=== PATIENT | female | born 1935 | race Caucasian/White ===

== ENCOUNTER → 2018-07-02 10:14 | Outpatient (REF) | payer MEDICARE, OTHER, SELFPAY ==
[2018-07-02 10:35] LABS: INR 1.6 (0.9-1.3); Prothrombin Time 18.7 SECONDS (10.1-12.7)
== END ==
LOC: LAB 10:14
PROVIDERS: Family Provider Family Medicine; PCP Family Medicine; Visit Provider Family Medicine
DX: Z79.01 Long term (current) use of anticoagulants (principal)
CPT/HCPCS: 85610

== ENCOUNTER → 2018-08-08 14:16 | Outpatient (ROUT) | payer MEDICARE, OTHER, SELFPAY ==
[2018-08-08 14:22] LABS: INR 1.9 (0.9-1.3); Prothrombin Time 21.8 SECONDS (10.1-12.7)
== END ==
PROVIDERS: Family Provider Family Medicine; PCP Family Medicine; Visit Provider Family Medicine
DX: Z79.01 Long term (current) use of anticoagulants (principal)
CPT/HCPCS: 85610

== ENCOUNTER → 2018-09-03 14:55 | Outpatient (ROUT) | payer MEDICARE, OTHER, SELFPAY ==
[2018-09-03 15:11] LABS: INR 2.1 (0.9-1.3); Prothrombin Time 24.7 SECONDS (10.1-12.7)
== END ==
PROVIDERS: Family Provider Family Medicine; PCP Family Medicine; Visit Provider Family Medicine
DX: Z79.01 Long term (current) use of anticoagulants (principal)
CPT/HCPCS: 85610

== ENCOUNTER → 2018-10-02 11:55 | Outpatient (ROUT) | payer MEDICARE, OTHER, SELFPAY ==
[2018-10-02 12:10] LABS: INR 1.5 (0.9-1.3); Prothrombin Time 17.3 SECONDS (10.1-12.7)
== END ==
PROVIDERS: Family Provider Family Medicine; PCP Family Medicine; Visit Provider Student in an Organized Health Care Education/Training Program
DX: Z79.01 Long term (current) use of anticoagulants (principal)
CPT/HCPCS: 85610

== ENCOUNTER → 2018-10-09 11:48 | Outpatient (ROUT) | payer MEDICARE, OTHER, SELFPAY ==
[2018-10-09 12:34] LABS: INR 1.9 (0.9-1.3); Prothrombin Time 21.8 SECONDS (10.1-12.7)
== END ==
PROVIDERS: Family Provider Family Medicine; PCP Family Medicine; Visit Provider Student in an Organized Health Care Education/Training Program
DX: Z79.01 Long term (current) use of anticoagulants (principal)
CPT/HCPCS: 85610

== ENCOUNTER → 2018-10-16 14:33 | Outpatient (ROUT) | payer MEDICARE, OTHER, SELFPAY ==
[2018-10-16 15:17] LABS: INR 3.9 (0.9-1.3); Prothrombin Time 46.4 SECONDS (10.1-12.7)
== END ==
PROVIDERS: Family Provider Family Medicine; PCP Family Medicine; Visit Provider Student in an Organized Health Care Education/Training Program
DX: Z79.01 Long term (current) use of anticoagulants (principal)
CPT/HCPCS: 85610

== ENCOUNTER → 2018-11-01 11:36 | Outpatient (ROUT) | payer MEDICARE, OTHER, SELFPAY ==
[2018-11-01 11:51] LABS: INR 3.3 (0.9-1.3); Prothrombin Time 39.7 SECONDS (10.1-12.7)
== END ==
PROVIDERS: Visit Provider Student in an Organized Health Care Education/Training Program
DX: Z79.01 Long term (current) use of anticoagulants (principal)
CPT/HCPCS: 85610

== ENCOUNTER → 2018-11-22 14:06 | Outpatient (ROUT) | payer MEDICARE, OTHER, SELFPAY ==
[2018-11-22 14:24] LABS: INR 2.9 (0.9-1.3); Prothrombin Time 33.5 SECONDS (10.1-12.7)
== END ==
DX: Z79.01 Long term (current) use of anticoagulants (principal)
CPT/HCPCS: 85610

== ENCOUNTER 2019-01-22 11:17 | Emergency (ER) | payer MEDICARE, OTHER, SELFPAY ==
[2019-01-22 11:29] VITALS: BP 114/73; PULSE 111; RESP 18; O2SAT 94; BMI 26.8
--- NOTE | 2019-01-22 11:52 | DI.RAD.S_ITS ---
PROCEDURE: XR CHEST 2V INDICATIONS: weakness, fall TECHNIQUE: 2 views of the chest were acquired. COMPARISON: [facility], CHEST 1 VIEW, 06/07/2015, 20:11. [facility], CHEST 2 VIEW, 03/02/2014, 12:44. [facility], CHEST 1 VIEW, 03/13/2013, 16:08. [facility], CHEST 1 VIEW, 09/09/2012, 6:19. FINDINGS: Surgical changes and devices: None. Lungs and pleura: The lungs are hypoinflated, and are hypoinflated when compared with prior exams. Lungs are otherwise clear. No pleural effusions or pneumothorax. Mediastinum: There is mild widening of the cardiac and mediastinal silhouettes when compared with prior exams. Bones and chest wall: No suspicious bony abnormalities. Soft tissues appear unremarkable. Moderate multilevel degenerative changes of the thoracic spine. IMPRESSION: Mild widening of the cardiac and mediastinal silhouettes when compared with prior exams, likely secondary to differences in pulmonary hypoinflation. Consider followup radiographs or chest CT if there is continued clinical concern. Dictated by: Loc Larson M.D. on 01/22/2019 at 12:26 Approved by: Loc Larson M.D. on 01/22/2019 at 12:31
--- NOTE | 2019-01-22 12:06 | DI.CT.S_ITS ---
PROCEDURE: CT HEAD/BRAIN WO CON INDICATIONS: fall and hit L side head last night on warfarin, has cochlea TECHNIQUE: Noncontrast 4.5 mm thick angled axial sections acquired from the foramen magnum to the vertex, with coronal and sagittal reformats. For radiation dose reduction, the following was used: automated exposure control, adjustment of mA and/or kV according to patient size. COMPARISON: [facility], CT, HEAD WITHOUT CONTRAST, 01/15/2017, 22:38. FINDINGS: Image quality: Beam hardening artifacts are noted from left sided cochlear implant device. CSF spaces: Basal cisterns are patent. No extra-axial fluid collections. The ventricles are symmetric in size and shape. Brain: No intracranial bleeds or masses. There is cerebral volume loss for age, with resultant ventricular and sulcal prominence. There are periventricular and deep white matter chronic small vessel ischemic changes. There is intracranial internal carotid artery atherosclerosis. Skull and face: Calvarium and visualized facial bones appear intact, without suspicious lesions. Left-sided cochlear implant is seen with embedded metallic device within left parietal scalp causing significant beam hardening artifacts. Sinuses: Visualized sinuses and mastoids are clear. IMPRESSION: 1. Slightly limited study due to significant beam hardening artifact from left scalp implant device. No acute skull fracture. 2. No gross CT evidence of acute intracranial pathology. Diffuse atrophy and moderate periventricular white matter chronic ischemic microangiopathic changes. Dictated by: Vicente Xiong M.D. on 01/22/2019 at 12:20 Approved by: Vicente Xiong M.D. on 01/22/2019 at 12:23
[2019-01-22 12:30] VITALS: BP 128/64; PULSE 111; RESP 18; O2SAT 98
[2019-01-22 12:37] LABS: Add Manual Diff / Slide Review NO; Basophils Absolute Auto 100 /uL (0-100); Basophils Percent Auto 0.9 % (0-2); Eosinophils Absolute Auto 200 /uL (0-450); Eosinophils Percent Auto 2.2 % (2-4); Hematocrit 43.6 % (36-46); Hemoglobin 15.1 g/dL (12.0-16.0); Lymphocytes Absolute Auto 1000 /uL (1100-4500); Lymphocytes Percent Auto 10.7 % (25-40); Mean Corpuscular HGB Conc 34.6 % (30-36); Mean Corpuscular Hemoglobin 40.8 PG (26-34); Mean Corpuscular Volume 117.8 fL (80-100); Monocytes Absolute Auto 900 /uL (0-900); Monocytes Percent Auto 8.7 % (3-14); Neutrophils Absolute Auto 7600 /uL (1500-7000); Neutrophils Percent Auto 77.5 % (50-75); Platelet Count 255 X10^3/uL (150-400); Red Cell Distribution Width 12.8 % (11.6-14.8); White Blood Cell Count 9.7 X10^3/uL (4.5-11.0)
[2019-01-22 12:45] LABS: INR 2.7 (0.9-1.3); Prothrombin Time 31.3 SECONDS (10.1-12.7)
--- NOTE | 2019-01-22 12:46 | ED_ITS ---
HPI - Fall <Wil CAMPOS White - Last Filed: 01/23/19 00:01> General Chief Complaint: Fall Stated Complaint: fell lastnight/hit head/raised bruise/blood in bm Time Seen by Provider: 01/22/19 11:38 Source: patient Mode of arrival: Wheelchair Limitations: no limitations History of Present Illness HPI Narrative: This is a 83-year-old female, to ED with family after she sustained a fall last night in a bath tub. Patient denies dizziness, breathing difficulty, or chest pain prior the fall and states the bathroom was dark Guille just fell on left side of her head. Patient is currently taking Coumadin 2.5 mg 6 days a week and 5 mg on Saturdays for AFib. Spouse reports last week INR w as 2.7 and the patient was scheduled to follow up for repeat blood test today. Spouse for denies any loss of consciousness, unusual behavior or nausea or vomiting since the fall. Patient was independent using a walker up until last night but family states today she is so weak needed two persons assistance to assist patient into the car and into ED. Skin-The spourse reports has sores on her buttock and is waiting for an appointment with wound care clinic. The patient has urinary incontinence and she is mostly sitting in position throughout the day and thinks this is causing her sores on her buttock. GIB-the spouse was called to the bathroom this morning after patient had used the restroom to void and noticed bright red blood in the toilet. Patient denies had a bowel movement this morning. Spouse states patient has problem with constipation is not sure if whether she had bowel movement. Patient denies abdominal pain, nausea or vomiting, fever, history of ulcer, GI bleed, or vag inal bleeding. Related Data Home Medications Medication Instructions Recorded Confirmed lisinopril [Zestril] 5 mg PO QPM #0 07/03/11 01/22/19 omega 1-hmn-zyd-fish oil [Fish Oil] 1 cap PO DAILY #0 03/03/12 01/22/19 Vitamin B-12 50 mcg PO DAILY #0 01/15/17 01/22/19 acetaminophen 325 mg PO Q4HP PRN #0 01/15/17 01/22/19 donepezil 5 mg PO DAILY #0 01/15/17 01/22/19 furosemide 20 mg PO DAILY #0 01/15/17 01/22/19 multivitamin [Multiple Vitamins] 1 tab PO DAILY #0 01/15/17 01/22/19 memantine 5 mg PO QAM 01/22/19 01/22/19 potassium chloride 20 meq PO DAILY 01/22/19 01/22/19 warfarin 2.5 mg PO SUMOTUWETHFR 01/22/19 01/22/19 warfarin 5 mg PO QWEEK 01/22/19 01/22/19 Allergies Allergy/AdvReac Type Severity Reaction Status Date / Time imipenem [IMIPENEM] Allergy Intermediate TURNED RED Verified 01/22/19 11:29 Review of Systems <CAMPOS Navarrete - Last Filed: 01/23/19 00:01> Review of Systems Narrative: General: Spouse reports weakness. Denies fever, chills, malaise, sweats. HEENT: Denies sinus pain, ear pain, sore throat, difficulty swallowing, dizziness. Respiratory: Denies dyspnea, cough, wheezing, hemoptysis, sputum. Cardiovascular: Denies chest pain, palpitations, orthopnea, edema. Gastrointestinal: See HPI : Denies dysuria, frequency, incontinence, hematuria, urinary retention. Musculoskeletal: Denies weakness, joint pain or bony pain. Skin: See HPI Neurologic: Denies weakness, headache, numbness, change in speech, confusion, seizures, incoordination. Psychiatric: No concerning psychosocial issues. 12-point review of systems is negative except for those stated above. Patient History <CAMPOS Navarrete - Last Filed: 01/23/19 00:01> Medical History Constipation (Acute) Substance Use Type: does not use Exam <CAMPOS Navarrete - Last Filed: 01/23/19 00:01> Narrative Exam Narrative: GEN: Alert, oriented x 3, well appearing and nourished, and in no acute distress. Head: Normal cephalic, atraumatic. Tenderness and ecchymosis to left parietal lobe. No obvious Palpable mass. EYES: Pupils are equal, round, and reactive to light and accommodation. Extraocular muscles are intact bilaterally. There is no subconjunctival hemorrhage, exudate and sclera non-icteric. ENT: Bilateral auditory canals and tympanic membranes clear. Hearing grossly intact. Nose without bleeding, purulent discharge or deviation. Facial sinuses nontender to palpate. Mucous membrane moist, no mucosal lesion. Throat without erythema, tonsillar hypertrophy or exudate. Uvula in midline, airway patent. Neck: Trachea in midline. No JVD, non-tender without lymphadenopathy. No masses or thyroid megaly. Supple, non-tender and no meningeal signs. CARDIAC: Irregular rhythm without murmurs, gallops, or rubs. No chest wall tenderness. No peripheral edema, cyanosis or pallor. Capillary refill is less than 2 seconds. RESPIRATORY: Lungs are clear to auscultate bilaterally. No cough, wheezes, rales, or rhonchi. No stridor, respiratory distress, increase work of breathing, or accessary muscle used. ABD: Abdomen soft, nontender and non-distended. No guarding or rebound tenderness to palpate. Bowel sounds are normal in all 4 quadrants. There is no palpable masses or organomegaly. EXT: Full painless ROM of all extremities with no loss of sensation, strength, effusion or edema. SKIN: Excoriated small size stage 2 ulcer on sacrum and left buttock. No active drainage. L buttock skin with erythema. Warm, dry, normal color for patient. No erythema, lesions or rash over visible areas. BACK: Nontender without deformity or crepitance. No flank tenderness. NEUROLOGICAL: Alert and oriented to place, time and person. Sensation and motor function intact bilaterally. No facial droops, dysphasia. PSYCHIATRIC: Good judgement and reason, without hallucinations, abnormal affect or abnormal behaviors during the examination. Initial Vital Signs Initial Vital Signs: Vital Signs Pulse Rate 111 H 01/22/19 11:29 Respiratory Rate 18 01/22/19 11:29 Blood Pressure 114/73 01/22/19 11:29 Pulse Oximetry 94 01/22/19 11:29 <Mendez Valverde DO - Last Filed: 01/25/19 18:20> Initial Vital Signs Initial Vital Signs: Vital Signs Pulse Rate 111 H 01/22/19 11:29 Respiratory Rate 18 01/22/19 11:29 Blood Pressure 114/73 01/22/19 11:29 Pulse Oximetry 94 01/22/19 11:29 Scores <CAMPOS Navarrete - Last Filed: 01/23/19 00:01> GCS [place] coma scale eye opening: Spontaneous Dora coma scale verbal response: Orientated [place] coma scale motor response: Obey commands Dora coma scale total score: 15 Nexus Score for C-Spine Focal Neurologic deficit present: No Midline spinal tenderness present: No Altered level of conciousness present: No Intoxication present: No Distracting Injury Present: Yes Nexus Criteria for C-spine: 1 Course <[facility] - Last Filed: 01/23/19 00:01> Orders Ordered: Discontinued Medications Sodium Chloride (Normal Saline 0.9%) 500 mls @ 500 mls/hr IV BOLUS ONE Stop: 01/22/19 14:25 Last Infusion: 01/22/19 14:41 Dose: 0 mls/hr Documented by: Admin: 01/22/19 13:56 Dose: 500 mls/hr Documented by: RISA Reevaluation(s) Reevaluation #1: Exam and plan discussed Time: 12:00 Reevaluation #2: Neg Guaic stool but aroud the gloved finger had light pink discoloration Time: 12:40 Reevaluation #3: Would like to go home. Findings and plan discussed with the patient and family Time: 13:50 Consultations Consultation #1: Dr. Saavedra-close follow up next week and she will contact tomorrow Time: 14:50 Vital Signs Vital signs: Vital Signs - 8 hr 01/22/19 15:15 Pulse Rate 80 Respiratory Rate 18 Blood Pressure [Right Arm] 132/80 Pulse Oximetry 99 <Mendez Valverde DO - Last Filed: 01/25/19 18:20> Orders Ordered: Discontinued Medications Sodium Chloride (Normal Saline 0.9%) 500 mls @ 500 mls/hr IV BOLUS ONE Stop: 01/22/19 14:25 Last Infusion: 01/22/19 14:41 Dose: 0 mls/hr Documented by: Admin: 01/22/19 13:56 Dose: 500 mls/hr Documented by: RISA Vital Signs Vital signs: Vital Signs - 8 hr 01/22/19 15:15 Pulse Rate 80 Respiratory Rate 18 Blood Pressure [Right Arm] 132/80 Pulse Oximetry 99 MDM - Fall <[facility] - Last Filed: 01/23/19 00:01> Differential Diagnosis Differential diagnosis: Likely concussion without loss of consciousness and other (GIB, vaginal bleed, Hematuria, pressure ulcer, electrolytes imbalance, Acute brain bleed.) Medical Records Attestation: I reviewed the patient's medical records. Lab Data Attestation: I reviewed the patient's lab results. Result diagrams: 01/22/19 12:01/22/19 12: Labs: Lab Results 01/22/19 01/22/19 01/22/19 Range/Units 12:27 12: 12: WBC 9.7 (4.5-11.0) X10^3/uL RBC 3.70 L (4.0-5.2) X10^6/uL Hgb 15.1 (12.0-16.0) g/dL Hct 43.6 (36-46) % MCV 117.8 H (80-100) fL MCH 40.8 H (26-34) PG MCHC 34.6 (30-36) % RDW 12.8 (11.6-14.8) % Plt Count 255 (150-400) X10^3/uL Neut % (Auto) 77.5 H (50-75) % Lymph % (Auto) 10.7 L (25-40) % [place] % (Auto) 8.7 (3-14) % Eos % (Auto) 2.2 (2-4) % Baso % (Auto) 0.9 (0-2) % Neut # (Auto) 7600 H (7337-6305) /uL Lymph # (Auto) 1000 L (0021-5264) /uL [place] # (Auto) 900 (0-900) /uL Eos # (Auto) 200 (0-450) /uL Baso # (Auto) 100 (0-100) /uL RBC Morphology Not Reportable Macrocytosis 2+ H PT 31.3 H (10.1-12.7) SECONDS INR 2.7 H (0.9-1.3) APTT 44 H (26.4-36.2) SECONDS Sodium 142 (137-145) mmol/L Potassium 4.1 (3.4-5.1) mmol/L Chloride 102 (98-107) mmol/L Carbon Dioxide 29 (22-32) mmol/L BUN 24 H (7-17) mg/dL Creatinine 0.90 (0.52-1.04) mg/dL Estimated GFR 59.7 L (>60) mL/min BUN/Creatinine Ratio 26.7 H (6-22) Glucose 108 (80-110) mg/dL Calcium 9.8 (8.4-10.2) mg/dL Total Bilirubin 1.2 (0.2-1.3) mg/dL AST 35 (14-36) IU/L ALT 22 (9-52) IU/L Alkaline Phosphatase 118 (38-126) U/L Total Creatine Kinase (30-135) U/L CK-MB (CK-2) CK-MB (CK-2) Rel Index Troponin I (0.01-0.034) ng/mL Total Protein 7.8 (6.3-8.2) g/dL Albumin 4.4 (3.5-5.0) g/dL Globulin 3.4 (1.7-4.1) g/dL Albumin/Globulin Ratio 1.3 (1.0-2.8) Urine Color Urine Appearance Urine pH (4.5-8.0) Ur Specific [place] (1.000-1.035) Urine Protein (Negative) Urine Glucose (UA) (Negative) g/dL Urine Ketones (NEGATIVE) Urine Occult Blood (Negative) Urine Nitrate (Negative) Urine Bilirubin (NEGATIVE) Urine Urobilinogen (0.2) E.U./dL Ur Leukocyte Esterase (NEGATIVE) Urine RBC (0-5/HPF) Urine WBC (0-5/HPF) Urine Bacteria (None) Ur Culture Indicated? Blood Type Antibody Screen 01/22/19 01/22/19 01/22/19 Range/Units 12:27 12:27 12:51 WBC (4.5-11.0) X10^3/uL RBC (4.0-5.2) X10^6/uL Hgb (12.0-16.0) g/dL Hct (36-46) % MCV (80-100) fL MCH (26-34) PG MCHC (30-36) % RDW (11.6-14.8) % Plt Count (150-400) X10^3/uL Neut % (Auto) (50-75) % Lymph % (Auto) (25-40) % [place] % (Auto) (3-14) % Eos % (Auto) (2-4) % Baso % (Auto) (0-2) % Neut # (Auto) (5089-0145) /uL Lymph # (Auto) (8407-7630) /uL [place] # (Auto) (0-900) /uL Eos # (Auto) (0-450) /uL Baso # (Auto) (0-100) /uL RBC Morphology Macrocytosis PT (10.1-12.7) SECONDS INR (0.9-1.3) APTT (26.4-36.2) SECONDS Sodium (137-145) mmol/L Potassium (3.4-5.1) mmol/L Chloride (98-107) mmol/L Carbon Dioxide (22-32) mmol/L BUN (7-17) mg/dL Creatinine (0.52-1.04) mg/dL Estimated GFR (>60) mL/min BUN/Creatinine Ratio (6-22) Glucose (80-110) mg/dL Calcium (8.4-10.2) mg/dL Total Bilirubin (0.2-1.3) mg/dL AST (14-36) IU/L ALT (9-52) IU/L Alkaline Phosphatase (38-126) U/L Total Creatine Kinase 62 (30-135) U/L CK-MB (CK-2) TNP CK-MB (CK-2) Rel Index TNP Troponin I < 0.012 (0.01-0.034) ng/mL Total Protein (6.3-8.2) g/dL Albumin (3.5-5.0) g/dL Globulin (1.7-4.1) g/dL Albumin/Globulin Ratio (1.0-2.8) Urine Color Yellow Urine Appearance Clear Urine pH 6.5 (4.5-8.0) Ur Specific [place] <=1.005 (1.000-1.035) Urine Protein Negative (Negative) Urine Glucose (UA) Negative (Negative) g/dL Urine Ketones Negative (NEGATIVE) Urine Occult Blood Trace-lysed (Negative) Urine Nitrate Negative (Negative) Urine Bilirubin Negative (NEGATIVE) Urine Urobilinogen 0.2 (0.2) E.U./dL Ur Leukocyte Esterase Negative (NEGATIVE) Urine RBC None seen (0-5/HPF) Urine WBC None seen (0-5/HPF) Urine Bacteria Moderate (10-30) H (None) Ur Culture Indicated? Cult not indicated Blood Type O Positive Antibody Screen Negative Imaging Data CT scan - head: Radiologist's impression: [address] [address] [address] Scan Report Signed Patient: Haily Livingston [facility]#: [id number] : 5Acct:[id number] Age/Sex: 83 / FDate of Service: 01/22/19 Loc: ED Accession Number: [id number] Procedure: CT head/brain wo con Ordering Provider: Wil White PROCEDURE: CT HEAD/BRAIN WO CON INDICATIONS: fall and hit L side head last night on warfarin, has cochlea TECHNIQUE: Noncontrast 4.5 mm thick angled axial sections acquired from the foramen magnum to the vertex, with coronal and sagittal reformats. For radiation dose reduction, the following was used: automated exposure control, adjustment of mA and/or kV according to patient size. COMPARISON: [facility], CT, HEAD WITHOUT CONTRAST, 01/15/2017, 22:38. FINDINGS: Image quality: Beam hardening artifacts are noted from left sided cochlear implant device. CSF spaces: Basal cisterns are patent. No extra-axial fluid collections. The ventricles are symmetric in size and shape. Brain: No intracranial bleeds or masses. There is cerebral volume loss for age, with resultant ventricular and sulcal prominence. There are periventricular and deep white matter chronic small vessel ischemic changes. There is intracranial internal carotid artery atherosclerosis. Skull and face: Calvarium and visualized facial bones appear intact, without suspicious lesions. Left-sided cochlear implant is seen with embedded metallic device within left parietal scalp causing significant beam hardening artifacts. Sinuses: Visualized sinuses and mastoids are clear. IMPRESSION: 1. Slightly limited study due to significant beam hardening artifact from left scalp implant device. No acute skull fracture. 2. No gross CT evidence of acute intracranial pathology. Diffuse atrophy and moderate periventricular white matter chronic ischemic microangiopathic changes. Dictated by: Vicente Xiong M.D. on 01/22/2019 at 12:20 Approved by: Vicente Xiong M.D. on 01/22/2019 at 12:23 Chest x-ray: Radiologist's impression: [address] [address] XRay Report Signed Patient: Haily Livingston [facility]#: [id number] : 5Acct:[id number] Age/Sex: 83 / FDate of Service: 01/22/19 Loc: ED Accession Number: [id number] Procedure: XR chest 2V Ordering Provider: Wil White PROCEDURE: XR CHEST 2V INDICATIONS: weakness, fall TECHNIQUE: 2 views of the chest were acquired. COMPARISON: [facility], CR, CHEST 1 VIEW, 06/07/2015, 20:11. [facility], , CHEST 2 VIEW, 03/02/2014, 12:44. [facility], , CHEST 1 VIEW, 03/13/2013, 16:08. [facility], CR, CHEST 1 VIEW, 09/09/2012, 6:19. FINDINGS: Surgical changes and devices: None. Lungs and pleura: The lungs are hypoinflated, and are hypoinflated when compared with prior exams. Lungs are otherwise clear. No pleural effusions or pneumothorax. Mediastinum: There is mild widening of the cardiac and mediastinal silhouettes when compared with prior exams. Bones and chest wall: No suspicious bony abnormalities. Soft tissues appear unremarkable. Moderate multilevel degenerative changes of the thoracic spine. IMPRESSION: Mild widening of the cardiac and mediastinal silhouettes when compared with prior exams, likely secondary to differences in pulmonary hypoinflation. Consider followup radiographs or chest CT if there is continued clinical concern. Dictated by: Loc Larson M.D. on 01/22/2019 at 12:26 Approved by: Loc Larson M.D. on 01/22/2019 at 12:31 ECG Data Attestation: I personally reviewed and interpreted this ECG as follows: Prior ECG tracings: available for review Interpretation: Afib rate in 99. L axis. 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 NO ST elevation or depression MDM Narrative Medical decision making narrative: This is a 83-year-old female who presents to ED after she had a fall in a bath tub last night in a dark bathroom. Patient is usually independent and ambulatory using walker up until last night. Patient denied chest pain, short of breath, dizziness prior falling and states I just fell. Patient is currently taking Coumadin for history of atrial fibrillation. Spouse denies loss of consciousness, nausea or vomiting, patient denies visual changes or 1 side of limbs weakness. Head CT showed no acute skull fracture or intracranial pathology. EKG was AFib rate at 99 without changes from previous EKG. Cardiac enzymes were negative. The patient has constant slow drips of urinary incontinence and has stage II pressure injury in sacrum and left buttock. Patient sits on chair most of the day. Patient is currently waiting for on initial appointment with wound clinic. Conway catheter was inserted to drain 700 mL of urine. Perineum protectant cream was applied. Conway catheter was removed prior patient's DC to home. Urine shows no obvious infection but being cultured for urine. Patient advised to have scheduled bladder training to sit on a toilet every 3-4 hours to void to offload to avoid pressure on affected pressure injury site. The patient's H/H is stable today as 15.1/43.6. Patient's INR is 2.7 same as last week. Normal platelet counts. BUN was mildly elevated as 24 with normal creatinine and GFR is 59.7. Patient was hydrated with normal saline with 500 mL. Guaiac stool test was negative but noticed very faint pink discoloration around the gloved finger from rectum/anus. Given patient has a history of constipation, it is likely that patient had bleeding around the rectum or anus. Patient was able to ambulate with a walker from room 11 around the nursing nguyen and back to her room in stable gait with standby assistance. Patient expressed several times of wishing to go home. Patient's case and findings were discussed with Dr. Saavedra over the phone for close follow-up and patient will be contacted tomorrow via phone call. Patient's vital signs heart rate has improved prior discharged to home. Strict return precautions were discussed with the patient and spouse and verbalized understanding and agrees with the treatment plan. No further questions were expressed at this time. <Mendez Valverde, DO - Last Filed: 01/25/19 18:20> Lab Data Labs: Lab Results 01/22/19 01/22/19 01/22/19 Range/Units 12:27 12:27 12:27 WBC 9.7 (4.5-11.0) X10^3/uL RBC 3.70 L (4.0-5.2) X10^6/uL Hgb 15.1 (12.0-16.0) g/dL Hct 43.6 (36-46) % MCV 117.8 H (80-100) fL MCH 40.8 H (26-34) PG MCHC 34.6 (30-36) % RDW 12.8 (11.6-14.8) % Plt Count 255 (150-400) X10^3/uL Neut % (Auto) 77.5 H (50-75) % Lymph % (Auto) 10.7 L (25-40) % [place] % (Auto) 8.7 (3-14) % Eos % (Auto) 2.2 (2-4) % Baso % (Auto) 0.9 (0-2) % Neut # (Auto) 7600 H (1312-7210) /uL Lymph # (Auto) 1000 L (1977-5070) /uL [place] # (Auto) 900 (0-900) /uL Eos # (Auto) 200 (0-450) /uL Baso # (Auto) 100 (0-100) /uL RBC Morphology Not Reportable Macrocytosis 2+ H PT 31.3 H (10.1-12.7) SECONDS INR 2.7 H (0.9-1.3) APTT 44 H (26.4-36.2) SECONDS Sodium 142 (137-145) mmol/L Potassium 4.1 (3.4-5.1) mmol/L Chloride 102 (98-107) mmol/L Carbon Dioxide 29 (22-32) mmol/L BUN 24 H (7-17) mg/dL Creatinine 0.90 (0.52-1.04) mg/dL Estimated GFR 59.7 L (>60) mL/min BUN/Creatinine Ratio 26.7 H (6-22) Glucose 108 (80-110) mg/dL Calcium 9.8 (8.4-10.2) mg/dL Total Bilirubin 1.2 (0.2-1.3) mg/dL AST 35 (14-36) IU/L ALT 22 (9-52) IU/L Alkaline Phosphatase 118 (38-126) U/L Total Creatine Kinase (30-135) U/L CK-MB (CK-2) CK-MB (CK-2) Rel Index Troponin I (0.01-0.034) ng/mL Total Protein 7.8 (6.3-8.2) g/dL Albumin 4.4 (3.5-5.0) g/dL Globulin 3.4 (1.7-4.1) g/dL Albumin/Globulin Ratio 1.3 (1.0-2.8) Urine Color Urine Appearance Urine pH (4.5-8.0) Ur Specific [place] (1.000-1.035) Urine Protein (Negative) Urine Glucose (UA) (Negative) g/dL Urine Ketones (NEGATIVE) Urine Occult Blood (Negative) Urine Nitrate (Negative) Urine Bilirubin (NEGATIVE) Urine Urobilinogen (0.2) E.U./dL Ur Leukocyte Esterase (NEGATIVE) Urine RBC (0-5/HPF) Urine WBC (0-5/HPF) Urine Bacteria (None) Ur Culture Indicated? Blood Type Antibody Screen 01/22/19 01/22/19 01/22/19 Range/Units 12:27 12:27 12:51 WBC (4.5-11.0) X10^3/uL RBC (4.0-5.2) X10^6/uL Hgb (12.0-16.0) g/dL Hct (36-46) % MCV (80-100) fL MCH (26-34) PG MCHC (30-36) % RDW (11.6-14.8) % Plt Count (150-400) X10^3/uL Neut % (Auto) (50-75) % Lymph % (Auto) (25-40) % [place] % (Auto) (3-14) % Eos % (Auto) (2-4) % Baso % (Auto) (0-2) % Neut # (Auto) (5403-5696) /uL Lymph # (Auto) (3737-6482) /uL [place] # (Auto) (0-900) /uL Eos # (Auto) (0-450) /uL Baso # (Auto) (0-100) /uL RBC Morphology Macrocytosis PT (10.1-12.7) SECONDS INR (0.9-1.3) APTT (26.4-36.2) SECONDS Sodium (137-145) mmol/L Potassium (3.4-5.1) mmol/L Chloride (98-107) mmol/L Carbon Dioxide (22-32) mmol/L BUN (7-17) mg/dL Creatinine (0.52-1.04) mg/dL Estimated GFR (>60) mL/min BUN/Creatinine Ratio (6-22) Glucose (80-110) mg/dL Calcium (8.4-10.2) mg/dL Total Bilirubin (0.2-1.3) mg/dL AST (14-36) IU/L ALT (9-52) IU/L Alkaline Phosphatase (38-126) U/L Total Creatine Kinase 62 (30-135) U/L CK-MB (CK-2) TNP CK-MB (CK-2) Rel Index TNP Troponin I < 0.012 (0.01-0.034) ng/mL Total Protein (6.3-8.2) g/dL Albumin (3.5-5.0) g/dL Globulin (1.7-4.1) g/dL Albumin/Globulin Ratio (1.0-2.8) Urine Color Yellow Urine Appearance Clear Urine pH 6.5 (4.5-8.0) Ur Specific [place] <=1.005 (1.000-1.035) Urine Protein Negative (Negative) Urine Glucose (UA) Negative (Negative) g/dL Urine Ketones Negative (NEGATIVE) Urine Occult Blood Trace-lysed (Negative) Urine Nitrate Negative (Negative) Urine Bilirubin Negative (NEGATIVE) Urine Urobilinogen 0.2 (0.2) E.U./dL Ur Leukocyte Esterase Negative (NEGATIVE) Urine RBC None seen (0-5/HPF) Urine WBC None seen (0-5/HPF) Urine Bacteria Moderate (10-30) H (None) Ur Culture Indicated? Cult not indicated Blood Type O Positive Antibody Screen Negative Discharge Plan Departure Patient Disposition: Home Clinical Impression: Bright red rectal bleeding Head injury without concussion or intracranial hemorrhage Qualifiers: Encounter type: initial encounter Qualified Code(s): S09.90XA - Unspecified injury of head, initial encounter Pressure ulcer Qualifiers: Pressure injury location: sacral region Pressure injury stage: stage 2 Qualified Code(s): L89.152 - Pressure ulcer of sacral region, stage 2 Urinary incontinence Qualifiers: Urinary Incontinence type: unspecified incontinence Qualified Code(s): R32 - Unspecified urinary incontinence Discharge Date/Time: 01/22/19 15:58 Activity Restrictions/Additional Instructions: You have been diagnosed with [head injury from falling, urinary incontinence, pressure ulcer on her buttock, possible rectal bleeding. CT scan of year head today was unremarkable without acute findings. You're blood count looks good today. There is no obvious indication of urinary tract infection at this time. You're able to ambulate with a walker in the ED. Please offloading as much as possible for worsening pressure ulcer. Please schedule yourself to use every 3- 4 hours to void]. What to do: *Take your medications as directed. *Follow up with your primary care provider next week Sunday, call for an appointment today or tomorrow. I spoke with Dr. Saavedra over the phone and she is expecting you to follow up. Let them know you were seen in the ED and that we asked you to be seen in follow up. *Return to ED if you have any new, worsening, or concerning symptoms, such as [chest pain, breathing difficulty, severe headache, vision difficulty, weakness to extremities, able to tolerate fluids, or any acute concerns]. Prescriptions: No Action lisinopril [Zestril] 5 MG tablet 5 mg PO QPM Qty: 0 RF: 0 omega 8-dpd-jch-fish oil [Fish Oil] 1,000 mg (120 mg-180 mg) Capsule 1 cap PO DAILY Qty: 0 RF: 0 donepezil 5 MG tablet 5 mg PO DAILY Qty: 0 RF: 0 multivitamin [Multiple Vitamins] 1 EACH tablet 1 tab PO DAILY Qty: 0 RF: 0 acetaminophen 325 MG tablet 325 mg PO Q4HP PRN (Reason: pain) Qty: 0 RF: 0 Vitamin B-12 50 mcg tablet 50 mcg PO DAILY Qty: 0 RF: 0 furosemide 20 MG tablet 20 mg PO DAILY Qty: 0 RF: 0 potassium chloride 10 mEq Capsule, Extended Release 20 meq PO DAILY RF: 0 warfarin 2.5 mg Tablet 2.5 mg PO SUMOTUWETHFR RF: 0 warfarin 2.5 mg Tablet 5 mg PO QWEEK RF: 0 memantine 5 mg Tablet 5 mg PO QAM RF: 0 Referrals: Gabby Saavedra MD [Physician] -
[2019-01-22 12:48] LABS: PTT Partial Thromboplastin Tim 44 SECONDS (26.4-36.2)
[2019-01-22 12:49] LABS: Creatine Kinase 62 U/L (30-135)
[2019-01-22 12:50] LABS: Alanine Aminotransferase 22 IU/L (9-52); Albumin 4.4 g/dL (3.5-5.0); Albumin Globulin Ratio 1.3 (1.0-2.8); Alkaline Phosphatase 118 U/L (38-126); Aspartate Aminotransferase 35 IU/L (14-36); BUN Creatinine Ratio 26.7 (6-22); Bilirubin Total 1.2 mg/dL (0.2-1.3); Blood Urea Nitrogen 24 mg/dL (7-17); Calcium 9.8 mg/dL (8.4-10.2); Carbon Dioxide 29 mmol/L (22-32); Chloride 102 mmol/L (98-107); Estimated Glomerular Filt Rate 59.7 mL/min (>60); Globulin 3.4 g/dL (1.7-4.1); Glucose 108 mg/dL (80-110); HEMOLYSIS 17 (0-50); Potassium 4.1 mmol/L (3.4-5.1); Sodium 142 mmol/L (137-145); Total Protein 7.8 g/dL (6.3-8.2)
--- NOTE | 2019-01-22 12:54 | PC.NURSE ---
Pt turned for exam. Noted multiple soaked pads against lynda area. Pt w/ constant stream of urine. Lynda area red / excoriated. Lynda care given, new pad. Low abd slightly distended. Cathed for urine and found 700 cc of retained urine. Conway left in for acute urinary retention.
--- NOTE | 2019-01-22 12:56 | PC.NURSE ---
Per Wil FLOOR RUNNER, Guad negative stool.
[2019-01-22 13:00] LABS: RBC Urine None Seen (0-5/HPF); WBC Urine None Seen (0-5/HPF)
[2019-01-22 13:01] LABS: Troponin I < 0.012 ng/mL (0.01-0.034)
[2019-01-22 13:02] LABS: Appearance Urine UA CLEAR; Bilirubin Urine UA NEGATIVE (NEGATIVE); Color Urine UA YELLOW; Glucose Urine UA NEGATIVE (Negative); Ketones Urine UA NEGATIVE (NEGATIVE); Leukocyte Esterase Urine UA NEGATIVE (NEGATIVE); Nitrite Urine UA NEGATIVE (Negative); Occult Blood Urine UA TRACE-LYSED (Negative); Protein Urine UA NEGATIVE (Negative); Specific Gravity Urine UA <=1.005 (1.000-1.035); Urobilinogen Urine UA 0.2 E.U./dL (0.2)
[2019-01-22 13:02] LABS: Macrocytosis 2+
[2019-01-22 13:17] LABS: pH Urine UA 6.5 (4.5-8.0)
[2019-01-22 13:27] LABS: Bacteria Urine Moderate (10-30); Culture Indicated Urine Cult Not Indicated
[2019-01-22 13:30] VITALS: BP 121/58; PULSE 81; RESP 26; O2SAT 96
[2019-01-22] MEDS: SODIUM CHLORIDE 0.9% 500 ML IV (13:56)
[2019-01-22 14:30] VITALS: BP 133/98; PULSE 116; RESP 24; O2SAT 95
[2019-01-22 15:15] VITALS: BP 132/80; PULSE 80; RESP 18; O2SAT 99
== END 2019-01-22 15:58 | disposition home or self-care (01) ==
PROVIDERS: Emergency Medicine; Emergency Provider Nurse Practitioner Family
DX: K62.5 Hemorrhage of anus and rectum (principal); S09.90XA Unspecified injury of head, initial encounter; L89.152 Pressure ulcer of sacral region, stage 2; R32 Unspecified urinary incontinence; R53.1 Weakness; W18.39XA Other fall on same level, initial encounter; Z79.01 Long term (current) use of anticoagulants
CPT/HCPCS: 36415; 70450; 71046; 80053; 81001; 82550; 84484; 85025; 85610; 85730; 86850; 86900; 86901; 87077; 87086; 87186; 93005; 96360; 99285

== ENCOUNTER → 2019-01-29 14:49 | Outpatient (CLI) | payer MEDICARE, OTHER, SELFPAY | PROVIDERS: Visit Provider Family Medicine | DX: S31.829A Unspecified open wound of left buttock, initial encounter (principal); L98.9 Disorder of the skin and subcutaneous tissue, unspecified | CPT/HCPCS: 97597; 99214 ==

== ENCOUNTER → 2019-02-05 12:00 | Outpatient (CLI) | payer MEDICARE, OTHER, SELFPAY | PROVIDERS: Visit Provider Family Medicine | DX: S31.829D Unspecified open wound of left buttock, subsequent encounter (principal); S21.202D Unspecified open wound of left back wall of thorax without penetration into thoracic cavity, subsequent encounter; L98.9 Disorder of the skin and subcutaneous tissue, unspecified | CPT/HCPCS: 99214 ==

== ENCOUNTER → 2019-02-12 14:06 | Outpatient (CLI) | payer MEDICARE, OTHER, SELFPAY | PROVIDERS: Visit Provider Family Medicine | DX: L98.9 Disorder of the skin and subcutaneous tissue, unspecified (principal); S31.829A Unspecified open wound of left buttock, initial encounter; S31.819A Unspecified open wound of right buttock, initial encounter; S21.202A Unspecified open wound of left back wall of thorax without penetration into thoracic cavity, initial encounter | CPT/HCPCS: 99212; 99213 ==

== ENCOUNTER → 2019-02-19 10:58 | Outpatient (ROUT) | payer MEDICARE, OTHER, SELFPAY ==
[2019-03-06 11:00] LABS: INR 2.6 (0.9-1.3); Prothrombin Time 30.3 SECONDS (10.1-12.7)
== END ==
PROVIDERS: Visit Provider Student in an Organized Health Care Education/Training Program
DX: Z79.01 Long term (current) use of anticoagulants (principal)
CPT/HCPCS: 85610

== ENCOUNTER → 2019-02-19 14:34 | Outpatient (CLI) | payer MEDICARE, OTHER, SELFPAY | PROVIDERS: Visit Provider Family Medicine | DX: L98.9 Disorder of the skin and subcutaneous tissue, unspecified (principal); R32 Unspecified urinary incontinence; L03.317 Cellulitis of buttock | CPT/HCPCS: 99213; 99214 ==

== ENCOUNTER → 2019-02-26 15:05 | Outpatient (ROUT) | payer MEDICARE, OTHER, SELFPAY ==
[2019-02-26 15:29] LABS: INR 3.6 (0.9-1.3); Prothrombin Time 42.4 SECONDS (10.1-12.7)
== END ==
PROVIDERS: Visit Provider Student in an Organized Health Care Education/Training Program
DX: Z79.01 Long term (current) use of anticoagulants (principal); I48.91 Unspecified atrial fibrillation; I50.9 Heart failure, unspecified
CPT/HCPCS: 85610

== ENCOUNTER → 2019-03-05 14:28 | Outpatient (CLI) | payer MEDICARE, OTHER, SELFPAY | PROVIDERS: Visit Provider Family Medicine | DX: L98.9 Disorder of the skin and subcutaneous tissue, unspecified (principal); L98.411 Non-pressure chronic ulcer of buttock limited to breakdown of skin; R32 Unspecified urinary incontinence | CPT/HCPCS: 99213 ==

== ENCOUNTER → 2019-03-19 15:12 | Outpatient (CLI) | payer MEDICARE, OTHER, SELFPAY | PROVIDERS: Visit Provider Family Medicine | DX: S31.829A Unspecified open wound of left buttock, initial encounter (principal); S31.819A Unspecified open wound of right buttock, initial encounter; L98.9 Disorder of the skin and subcutaneous tissue, unspecified; R32 Unspecified urinary incontinence | CPT/HCPCS: 97597 ==

== ENCOUNTER → 2019-03-21 15:32 | Outpatient (ROUT) | payer MEDICARE, OTHER, SELFPAY ==
[2019-03-21 15:51] LABS: INR 2.7 (0.9-1.3); Prothrombin Time 31.7 SECONDS (10.1-12.7)
== END ==
PROVIDERS: Visit Provider Student in an Organized Health Care Education/Training Program
DX: I48.91 Unspecified atrial fibrillation (principal); Z79.01 Long term (current) use of anticoagulants
CPT/HCPCS: 85610

== ENCOUNTER → 2019-04-03 14:00 | Outpatient (ROUT) | payer MEDICARE, OTHER, SELFPAY ==
[2019-04-03 14:33] LABS: INR 2.1 (0.9-1.3); Prothrombin Time 24.9 SECONDS (10.1-12.7)
== END ==
PROVIDERS: PCP Student in an Organized Health Care Education/Training Program; Visit Provider Student in an Organized Health Care Education/Training Program
DX: I48.91 Unspecified atrial fibrillation (principal); Z79.01 Long term (current) use of anticoagulants
CPT/HCPCS: 85610

== ENCOUNTER → 2019-04-03 14:05 | Outpatient (CLI) | payer MEDICARE, OTHER, SELFPAY | PROVIDERS: PCP Student in an Organized Health Care Education/Training Program; Visit Provider Family Medicine | DX: R32 Unspecified urinary incontinence (principal); L22 Diaper dermatitis | CPT/HCPCS: 99212; 99213 ==

== ENCOUNTER → 2019-05-26 13:15 | Outpatient (ROUT) | payer MEDICARE, OTHER, SELFPAY ==
[2019-05-26 14:03] LABS: Prothrombin Time 23.4 SECONDS (10.1-12.7)
== END ==
PROVIDERS: PCP Student in an Organized Health Care Education/Training Program; Visit Provider Student in an Organized Health Care Education/Training Program
DX: Z79.01 Long term (current) use of anticoagulants (principal); I48.91 Unspecified atrial fibrillation
CPT/HCPCS: 85610

== ENCOUNTER → 2019-08-01 12:01 | Outpatient (ROUT) | payer MEDICARE, OTHER, SELFPAY ==
[2019-08-01 12:17] LABS: INR 2.8 (0.9-1.3); Prothrombin Time 31.3 SECONDS (10.1-12.7)
== END ==
PROVIDERS: PCP Student in an Organized Health Care Education/Training Program; Visit Provider Student in an Organized Health Care Education/Training Program
DX: I48.91 Unspecified atrial fibrillation (principal); Z79.01 Long term (current) use of anticoagulants
CPT/HCPCS: 85610

== ENCOUNTER → 2019-08-29 11:59 | Outpatient (ROUT) | payer MEDICARE, OTHER, SELFPAY ==
[2019-08-29 12:14] LABS: INR 2.8 (0.9-1.3); Prothrombin Time 31.5 SECONDS (10.1-12.7)
== END ==
PROVIDERS: PCP Student in an Organized Health Care Education/Training Program; Visit Provider Student in an Organized Health Care Education/Training Program
DX: I48.91 Unspecified atrial fibrillation (principal); Z79.01 Long term (current) use of anticoagulants
CPT/HCPCS: 85610

== ENCOUNTER → 2019-09-30 14:31 | Outpatient (ROUT) | payer MEDICARE, OTHER, SELFPAY ==
[2019-09-30 14:38] LABS: INR 2.7 (0.9-1.3); Prothrombin Time 30.4 SECONDS (10.1-12.7)
== END ==
PROVIDERS: PCP Student in an Organized Health Care Education/Training Program; Visit Provider Student in an Organized Health Care Education/Training Program
DX: I48.91 Unspecified atrial fibrillation (principal); Z79.01 Long term (current) use of anticoagulants
CPT/HCPCS: 85610

== ENCOUNTER → 2019-10-29 14:05 | Outpatient (ROUT) | payer MEDICARE, OTHER, SELFPAY ==
[2019-10-29 14:20] LABS: INR 3.8 (0.9-1.3)
== END ==
PROVIDERS: PCP Student in an Organized Health Care Education/Training Program; Visit Provider Student in an Organized Health Care Education/Training Program
DX: I48.91 Unspecified atrial fibrillation (principal); Z79.01 Long term (current) use of anticoagulants
CPT/HCPCS: 85610

== ENCOUNTER 2019-10-29 14:26 | Emergency (ER) | payer MEDICARE, OTHER, SELFPAY ==
[2019-10-29 15:31] VITALS: BMI 29.2
[2019-10-29 15:45] VITALS: BP 145/85; PULSE 70; RESP 16; TEMP 37; O2SAT 97
--- NOTE | 2019-10-29 17:39 | ED_ITS ---
HPI - Wound/Laceration <Elli Spring PA-C - Last Filed: 10/29/19 23:09> General Chief Complaint: Wound/Laceration Stated Complaint: right ankle scraped today Time Seen by Provider: 10/29/19 17:35 Source: patient Mode of arrival: Wheelchair Limitations: no limitations History of Present Illness HPI narrative: This is an 84-year-old woman who was leaving her doctor's office today after clinic visit and scraped her right lower [place]lejo on the car as she was climbing into it it began to bleed quite a bit she went back into the office and they wrapped her leg up but said that she should probably come to the emergency department because there might be some skin that needs to be cut off that is nonviable. She did not fall, did not hit her head, did not lose consciousness, has no other injuries. She has no other complaints or concerns this is an isolated complaint. Related Data Home Medications Medication Instructions Recorded Confirmed lisinopril [Zestril] 5 mg PO QPM #0 07/03/11 04/18/19 omega 8-drk-zyx-fish oil [Fish Oil] 1 cap PO DAILY #0 03/03/12 04/18/19 Vitamin B-12 50 mcg PO DAILY #0 01/15/17 04/18/19 acetaminophen 325 mg PO Q4HP PRN #0 01/15/17 04/18/19 donepezil 5 mg PO DAILY #0 01/15/17 04/18/19 multivitamin [Multiple Vitamins] 1 tab PO DAILY #0 01/15/17 04/18/19 memantine 5 mg PO QAM 01/22/19 04/18/19 potassium chloride 20 meq PO DAILY 01/22/19 04/18/19 warfarin 2.5 mg PO SUMOTUWETHFR 01/22/19 04/18/19 warfarin 5 mg PO QWEEK 01/22/19 04/18/19 furosemide 20 mg tablet 80 mg PO DAILY #0 tab 04/18/19 04/18/19 Previous Rx's Medication Instructions Recorded tolterodine 4 mg capsule,extended 4 mg PO DAILY #30 cap 07/15/19 release 24 hr Allergies Allergy/AdvReac Type Severity Reaction Status Date / Time imipenem [IMIPENEM] Allergy Intermediate TURNED RED Verified 10/29/19 15:31 Review of Systems <Elli Spring PA-C - Last Filed: 10/29/19 23:09> Review of Systems Narrative: Limited review of systems as patient was just seen at at her primary care office immediately prior to her arrival at the emergency department, she is here with sole complaint of skin tear. GENERAL: Denies chills, fatigue, malaise, fever, sweats. MUSCULOSKELETAL: denies weakness, joint pain, or bony pain SKIN: Positive for skin tear of her right lower leg Denies other rash, skin lesions, or other NEUROLOGIC: Denies weakness, headache, numbness, change in speech, confusion, seizures, incoordination. PSYCHIATRIC: No concerning psychosocial issues. 12 point review of systems is negative except for those stated above Patient History <Elli Spring PA-C - Last Filed: 10/29/19 23:09> Medical History Chicken pox (Resolved ~1940) Constipation (Acute) Degenerative joint disease (DJD) of lumbar spine (Chronic) Measles (Resolved) Mumps (Resolved) Social History Smoking Status: Former smoker Smoking Status: Former smoker Substance Use Type: does not use Exam <Elli Spring PA-C - Last Filed: 10/29/19 23:09> Narrative Exam Narrative: GENERAL: 84 year old patient appears stated age. Well-nourished, well-developed patient, in mild distress. HEAD: Atraumatic. Normocephalic. EYES: Pupils equal round and reactive. No scleral icterus. No injection or drainage. ENT: Nose without bleeding, purulent drainage. Airway patent. NECK: Trachea midline. CARDIOVASCULAR: Regular rate and rhythm RESPIRATORY: Clear to auscultation. Breath sounds equal bilaterally. No wheezes, rales, or rhonchi. GASTROINTESTINAL: Abdomen soft, non-tender, nondistended. EXTREMITIES: No edema or joint tenderness. BACK: Nontender without deformity or crepitance. No flank tenderness. NEURO: AOx3. SKIN: There is an approximately 6 cm x 6 cm skin tear with small flap of the nonviable skin on the inferior border -- skin tear is located on the right lateral calf just below the mid shaft of the tibia, it continues to ooze blood upon removal of the dressing and Coban wrap, range of motion is intact, sensation is intact below the injury, it does not involve the muscle or deeper tissues. She has diffuse chronic bilateral slight swelling as well as purplish discoloration of her calves and feet, extremely thin skin, multiple healing or well-healed small skin tears. No rash or erythema of visible areas Initial Vital Signs Initial Vital Signs: Vital Signs Temperature 98.6 F 10/29/19 15:45 Pulse Rate 70 10/29/19 15:45 Respiratory Rate 16 10/29/19 15:45 Blood Pressure 145/85 H 10/29/19 15:45 Pulse Oximetry 97 10/29/19 15:45 <Silvia Pineda MD - Last Filed: 10/30/19 02:48> Initial Vital Signs Initial Vital Signs: Vital Signs Temperature 98.6 F 10/29/19 15:45 Pulse Rate 70 10/29/19 15:45 Respiratory Rate 16 10/29/19 15:45 Blood Pressure 145/85 H 10/29/19 15:45 Pulse Oximetry 97 10/29/19 15:45 Procedures <Elli Spring PA-C - Last Filed: 10/29/19 23:09> Laceration Repair Laceration 1: Site: lower extremity (Right lateral calf) Side (If applicable): right Size (cm): 6 Description: other (Annular skin tear 1 mm in depth) Local Anesthetic: other anesthetic (Lidocaine prilocaine cream) Amount of anesthesia used (mL): 5 Pre-repair: wound explored Skin layer closed with: other (Wound edge was revised to remove nonviable skin, Surgicel hemostatic gauze was placed, followed by Telfa, sterile gauze wrap and Coban. No sutures were placed.) Scores <MANSOOR Hyman Last Filed: 10/29/19 23:09> GCS Planada coma scale eye opening: Spontaneous Dora coma scale verbal response: Orientated Planada coma scale motor response: Obey commands Planada coma scale total score: 15 Course <Elli Spring PA-C - Last Filed: 10/29/19 23:09> Orders Ordered: Discontinued Medications Lidocaine/Prilocaine (Lidocaine-Prilocaine Cream) 5 gm TOP NOW ONE Stop: 10/29/19 17:41 Last Admin: 10/29/19 17:58 Dose: 5 gm Documented by: OSMAR Vital Signs Vital signs: Vital Signs - 8 hr 10/29/19 15:45 10/29/19 18:34 Temperature 98.6 F Pulse Rate 70 96 H Respiratory Rate 16 16 Blood Pressure 145/85 H 139/75 Pulse Oximetry 97 98 <Silvia Pineda MD - Last Filed: 10/30/19 02:48> Orders Ordered: Discontinued Medications Lidocaine/Prilocaine (Lidocaine-Prilocaine Cream) 5 gm TOP NOW ONE Stop: 10/29/19 17:41 Last Admin: 10/29/19 17:58 Dose: 5 gm Documented by: OSMAR Vital Signs Vital signs: Vital Signs - 8 hr 10/29/19 15:45 10/29/19 18:34 Temperature 98.6 F Pulse Rate 70 96 H Respiratory Rate 16 16 Blood Pressure 145/85 H 139/75 Pulse Oximetry 97 98 MDM - Wound/Laceration <Elli Spring PA-C - Last Filed: 10/29/19 23:09> Differential Diagnosis Differential diagnosis: Likely laceration (Skin tear), avulsion of skin and other (Skin tear, vascular injury) Medical Records Attestation: I reviewed the patient's medical records. MDM Narrative Medical decision making narrative: This is an 84-year-old who presents with a superficial skin tear to her right calf sustained just after her PCP visit today while getting into her car. There were no other injuries, imaging was not warranted, labs were not obtained, area of wound was examined and treated for control of bleeding as above in procedures, instructions to follow-up with PCP or wound care in the next 1-3 days, all questions answered, emergency return precautions provided. Discharge Plan Departure Patient Disposition: Home Clinical Impression: Noninfected skin tear of right lower extremity Qualifiers: Encounter type: initial encounter Qualified Code(s): S81.811A - Laceration without foreign body, right lower leg, initial encounter Discharge Date/Time: 10/29/19 18:36 Instructions: DI for Avulsion Laceration (Not Requiring Sutures) Activity Restrictions/Additional Instructions: Thank you for letting us to be part of her care in the emergency department today. There is no evidence of an emergent or life threatening illness at this time, but follow up with your doctor in 1-2 days is recommended nonetheless to continue to rule out serious underlying causes of your symptoms. Please call the office for an appointment. Please return to the Emergency Department for any worsening or persistent symptoms. Please take medications as directed. Or skin tear was assessed, the wound edge was revised as there was some skin, and this was repaired with some special bandaging to help control bleeding, I do recommend you follow-up with your primary care doctor in the next 1-3 days to re-evaluate, if you have a wound care doctor I recommend that you could see them as well. Prescriptions: No Action lisinopril [Zestril] 5 MG tablet 5 mg PO QPM Qty: 0 RF: 0 omega 1-sch-uru-fish oil [Fish Oil] 1,000 mg (120 mg-180 mg) Capsule 1 cap PO DAILY Qty: 0 RF: 0 donepezil 5 MG tablet 5 mg PO DAILY Qty: 0 RF: 0 multivitamin [Multiple Vitamins] 1 EACH tablet 1 tab PO DAILY Qty: 0 RF: 0 acetaminophen 325 MG tablet 325 mg PO Q4HP PRN (Reason: pain) Qty: 0 RF: 0 Vitamin B-12 50 mcg tablet 50 mcg PO DAILY Qty: 0 RF: 0 furosemide 20 mg tablet 80 mg PO DAILY Qty: 0 RF: 0 tolterodine [Detrol LA] 4 mg capsule,extended release 24hr 4 mg PO DAILY Qty: 30 RF: 4 potassium chloride 10 mEq Capsule, Extended Release 20 meq PO DAILY RF: 0 warfarin 2.5 mg Tablet 2.5 mg PO SUMOTUWETHFR RF: 0 warfarin 2.5 mg Tablet 5 mg PO QWEEK RF: 0 memantine 5 mg Tablet 5 mg PO QAM RF: 0 Referrals: Gabby Saavedra MD [Primary Care Provider] - <Silvia Pineda MD - Last Filed: 10/30/19 02:48> Cosign ED Attending Cosignature Attestation: I was immediately available in the department for consultation throughout this patient's visit. I agree with documentation as above. iSlvia Pineda MD
[2019-10-29] MEDS: LIDOCAINE/PRILOCAINE 5 GM TOP (17:58)
[2019-10-29 18:34] VITALS: BP 139/75; PULSE 96; RESP 16; O2SAT 98
== END 2019-10-29 18:36 | disposition home or self-care (01) ==
PROVIDERS: Emergency Provider Student in an Organized Health Care Education/Training Program; PCP Student in an Organized Health Care Education/Training Program
DX: S81.811A Laceration without foreign body, right lower leg, initial encounter (principal); I48.91 Unspecified atrial fibrillation; Z79.01 Long term (current) use of anticoagulants
CPT/HCPCS: 85610; 99282

== ENCOUNTER → 2019-11-03 11:57 | Outpatient (ROUT) | payer MEDICARE, OTHER, SELFPAY ==
[2019-11-03 12:08] LABS: INR 1.5 (0.9-1.3); Prothrombin Time 16.9 SECONDS (10.1-12.7)
== END ==
PROVIDERS: PCP Student in an Organized Health Care Education/Training Program; Visit Provider Student in an Organized Health Care Education/Training Program
DX: I48.91 Unspecified atrial fibrillation (principal); Z79.01 Long term (current) use of anticoagulants
CPT/HCPCS: 85610

== ENCOUNTER → 2019-11-11 17:39 | Outpatient (ROUT) | payer MEDICARE, OTHER, SELFPAY ==
[2019-11-11 17:47] LABS: INR 2.2 (0.9-1.3); Prothrombin Time 25.3 SECONDS (10.1-12.7)
== END ==
PROVIDERS: PCP Student in an Organized Health Care Education/Training Program; Visit Provider Student in an Organized Health Care Education/Training Program
DX: Z79.01 Long term (current) use of anticoagulants (principal); I48.91 Unspecified atrial fibrillation
CPT/HCPCS: 85610

== ENCOUNTER → 2019-11-19 15:31 | Outpatient (CLI) | payer MEDICARE, OTHER, SELFPAY | PROVIDERS: PCP Student in an Organized Health Care Education/Training Program; Referring Provider Student in an Organized Health Care Education/Training Program; Visit Provider Family Medicine | DX: S81.801A Unspecified open wound, right lower leg, initial encounter (principal); R60.0 Localized edema | CPT/HCPCS: 11042; 99213; 99214 ==

== ENCOUNTER → 2019-11-27 15:40 | Outpatient (CLI) | payer MEDICARE, OTHER, SELFPAY | PROVIDERS: PCP Student in an Organized Health Care Education/Training Program; Referring Provider Student in an Organized Health Care Education/Training Program; Visit Provider Family Medicine | DX: S80.811A Abrasion, right lower leg, initial encounter (principal) | CPT/HCPCS: 29581 ==

== ENCOUNTER → 2019-12-11 15:47 | Outpatient (CLI) | payer MEDICARE, OTHER, SELFPAY | PROVIDERS: PCP Student in an Organized Health Care Education/Training Program; Referring Provider Student in an Organized Health Care Education/Training Program; Visit Provider Family Medicine | DX: I87.2 Venous insufficiency (chronic) (peripheral) (principal); L97.812 Non-pressure chronic ulcer of other part of right lower leg with fat layer exposed; R60.0 Localized edema | CPT/HCPCS: 11042 ==

== ENCOUNTER → 2019-12-18 15:03 | Outpatient (CLI) | payer MEDICARE, OTHER, SELFPAY | PROVIDERS: PCP Student in an Organized Health Care Education/Training Program; Referring Provider Student in an Organized Health Care Education/Training Program; Visit Provider Family Medicine | DX: I87.2 Venous insufficiency (chronic) (peripheral) (principal); L97.812 Non-pressure chronic ulcer of other part of right lower leg with fat layer exposed; R60.0 Localized edema | CPT/HCPCS: 11042; 99213 ==

== ENCOUNTER → 2019-12-19 16:26 | Outpatient (ROUT) | payer MEDICARE, OTHER, SELFPAY ==
[2019-12-19 17:18] LABS: INR 2.3 (0.9-1.3); Prothrombin Time 25.9 SECONDS (10.1-12.7)
== END ==
PROVIDERS: PCP Student in an Organized Health Care Education/Training Program; Visit Provider Student in an Organized Health Care Education/Training Program
DX: I48.91 Unspecified atrial fibrillation (principal); Z79.01 Long term (current) use of anticoagulants
CPT/HCPCS: 85610

== ENCOUNTER → 2019-12-31 14:13 | Outpatient (CLI) | payer MEDICARE, OTHER, SELFPAY | PROVIDERS: PCP Student in an Organized Health Care Education/Training Program; Referring Provider Student in an Organized Health Care Education/Training Program; Visit Provider Family Medicine | DX: I87.2 Venous insufficiency (chronic) (peripheral) (principal); L97.812 Non-pressure chronic ulcer of other part of right lower leg with fat layer exposed; R60.0 Localized edema | CPT/HCPCS: 29581; 99213 ==

== ENCOUNTER → 2020-01-05 14:27 | Outpatient (ROUT) | payer MEDICARE, OTHER, SELFPAY ==
[2020-01-05 14:54] LABS: INR 2.7 (0.9-1.3); Prothrombin Time 30.5 SECONDS (10.1-12.7)
== END ==
PROVIDERS: PCP Student in an Organized Health Care Education/Training Program; Visit Provider Student in an Organized Health Care Education/Training Program
DX: I48.91 Unspecified atrial fibrillation (principal); Z79.01 Long term (current) use of anticoagulants
CPT/HCPCS: 85610

== ENCOUNTER → 2020-01-07 15:26 | Outpatient (CLI) | payer MEDICARE, OTHER, SELFPAY | PROVIDERS: PCP Student in an Organized Health Care Education/Training Program; Referring Provider Student in an Organized Health Care Education/Training Program; Visit Provider Family Medicine | DX: I87.2 Venous insufficiency (chronic) (peripheral) (principal); L97.811 Non-pressure chronic ulcer of other part of right lower leg limited to breakdown of skin | CPT/HCPCS: 29581; 99213 ==

== ENCOUNTER → 2020-01-13 15:09 | Outpatient (CLI) | payer MEDICARE, OTHER, SELFPAY | PROVIDERS: Family Provider Student in an Organized Health Care Education/Training Program; PCP Student in an Organized Health Care Education/Training Program; Referring Provider Student in an Organized Health Care Education/Training Program; Visit Provider Family Medicine | DX: L97.811 Non-pressure chronic ulcer of other part of right lower leg limited to breakdown of skin (principal) | CPT/HCPCS: 29581; 99212 ==

== ENCOUNTER → 2020-01-20 15:42 | Outpatient (CLI) | payer MEDICARE, OTHER, SELFPAY | PROVIDERS: Family Provider Student in an Organized Health Care Education/Training Program; PCP Student in an Organized Health Care Education/Training Program; Referring Provider Student in an Organized Health Care Education/Training Program; Visit Provider Family Medicine | DX: I87.2 Venous insufficiency (chronic) (peripheral) (principal); L97.811 Non-pressure chronic ulcer of other part of right lower leg limited to breakdown of skin | CPT/HCPCS: 99213 ==

== ENCOUNTER → 2020-01-27 14:48 | Outpatient (ROUT) | payer MEDICARE, OTHER, SELFPAY ==
[2020-01-27 15:10] LABS: INR 2.5 (0.9-1.3); Prothrombin Time 28.6 SECONDS (10.1-12.7)
== END ==
PROVIDERS: Family Provider Student in an Organized Health Care Education/Training Program; PCP Student in an Organized Health Care Education/Training Program; Visit Provider Student in an Organized Health Care Education/Training Program
DX: I48.91 Unspecified atrial fibrillation (principal); Z79.01 Long term (current) use of anticoagulants
CPT/HCPCS: 85610

== ENCOUNTER → 2020-02-03 15:06 | Outpatient (CLI) | payer MEDICARE, OTHER, SELFPAY | PROVIDERS: Family Provider Student in an Organized Health Care Education/Training Program; PCP Student in an Organized Health Care Education/Training Program; Referring Provider Student in an Organized Health Care Education/Training Program; Visit Provider Family Medicine | DX: I87.2 Venous insufficiency (chronic) (peripheral) (principal); R60.0 Localized edema | CPT/HCPCS: 99213 ==

== ENCOUNTER → 2020-02-12 | Outpatient (CLI) | payer MEDICARE, OTHER, SELFPAY | PROVIDERS: Family Provider Student in an Organized Health Care Education/Training Program; PCP Student in an Organized Health Care Education/Training Program; Referring Provider Student in an Organized Health Care Education/Training Program; Visit Provider Family Medicine ==

== ENCOUNTER → 2020-02-18 15:47 | Oncology outpatient (ONC) | payer MEDICARE, OTHER, SELFPAY ==
--- NOTE | 2020-01-27 12:48 | ONC.SCHED ---
Per Dr. Wilhelm and [facility] move this new patient apt. to 02/03/20 from 01/27/20. Called spouse to let him know and 02/03/20 works for them. Spoke to the patient's spouse John who is on auth to discuss.
[2020-02-18 15:07] VITALS: BP 154/73; PULSE 82; RESP 18; TEMP 37; O2SAT 96
--- NOTE | 2020-02-18 15:43 | P.CONONC_ITS ---
History of Present Illness - Data of Consult Primary Care Provider: Gabby Saavedra MD - Consult Narrative Narrative: Haily Livingston is a 84 year old female for further evaluation of macrocytosis. Review of her records shows that in October of 2010 she had an MCV of 119.2. Since then she has had multiple CBCs done all of which have shown an elevated CA MCV. Levels have ranged from a high of 100 23.7 in December of 2016 to a low of 110.2 in August of 2012. During this time her white count, platelet count, hemoglobin and hematocrit have been generally normal. Her most recent labs from January 05, 2020 showed hemoglobin 14.5 hematocrit 41.8 with MCV 118 white count 7700 and platelet count of [id number]. Comprehensive metabolic panel showed a bicarbonate of 19 otherwise normal. Reticulocyte count was 2.6% for an absolute reticulocytosis of 99,000. Folate was 11.6 and vitamin B12 level was 1102. She is now referred for hematology consultation. She has had hearing difficulties over the last 10 years. She has been wearing hearing aids during that time had a cochlear implant about 2 years ago. She notes that she had normal hearing in her younger life. She has about 1/2 drinks of scotch whiskey per day. She has been doing this for many years and has not had any ill effects to her knowledge. She her bowels are somewhat irregular come, sometimes looser and sometimes constipated but in no particular pattern has been no change. She notes dyspnea on exertion which has not changed. She does not like cold weather which is not new. She denies other pain, bleeding, localized weakness, fever, chills, nausea, vomiting, or cough. All other systems are negative. Past medical history 1. She has history of decubitus ulcers 2. She has history of Alzheimer's which she has been on memantine and donepezil for the past 5 years or so. 3. Atrial fibrillation for which she is on Coumadin 4. History of congestive heart failure 5. High blood pressure 6. Hypokalemia 7. Presbycusis is noted above 8. DJD 9. History of rotator cuff tendinitis 10. Previous surgeries including laminectomy, spinal fusion, tonsillectomy, cochlear implant, left total knee replacement a right total hip replacement 11. She is for over 60 years. She is accompanied by her who is a retired pharmacist. She is not a smoker. She has 1/2 scotch drinks a day 12. Her brother had prostate cancer and pancreatic cancer. Her father had pancreatic cancer. There is no history in the family of any blood disorder or any other family history of cancer. 13. She is allergic to imipenem 14. Current medications include donepezil 5 mg daily, Lasix 80 mg daily, lisinopril 5 mg daily, memantine 5 mg daily, multiple vitamin, fish oil, potassium 20 mEq daily and full-dose anticoagulation with Coumadin. CC: Alec Wilhelm MD Home Medications and Allergies Home Medications Medication Instructions Recorded Confirmed Type lisinopril [Zestril] 5 mg PO QPM #0 07/03/11 02/18/20 History omega 8-dlj-rta-fish oil [Fish Oil] 1 cap PO DAILY #0 03/03/12 02/18/20 History acetaminophen 325 mg PO Q4HP PRN #0 01/15/17 02/18/20 History donepezil 5 mg PO DAILY #0 01/15/17 02/18/20 History multivitamin [Multiple Vitamins] 1 tab PO DAILY #0 01/15/17 02/18/20 History memantine 5 mg PO QAM 01/22/19 02/18/20 History potassium chloride 20 meq PO DAILY 01/22/19 02/18/20 History warfarin 2.5 mg PO SUMOTUWETHFR 01/22/19 02/18/20 History warfarin 5 mg PO QWEEK 01/22/19 02/18/20 History furosemide 20 mg tablet 80 mg PO DAILY #0 tab 04/18/19 02/18/20 History Allergies Allergy/AdvReac Type Severity Reaction Status Date / Time imipenem [IMIPENEM] Allergy Intermediate TURNED RED Verified 10/29/19 15:31 Medical History - Medical, Surgical, Family History Medical History: Medical History (Last Reviewed 10/29/19 @ 22:58 by Elli Spring PA-C) Chicken pox Onset Date: ~1940 Constipation Degenerative joint disease (DJD) of lumbar spine Measles Mumps - Social History Smoking Status: Former smoker Review of Systems - Patient Self-Reported Symptoms SR respiratory issues: Shortness of breath SR Skin issues: Dry skin SR Gastrointestinal issues: Diarrhea, Constipation SR Genitourinary issues: Incontinence SR Endocrine issues: Cold intolerance Exam Vital signs: Vital Signs Temp Pulse Resp BP Pulse Ox 02/18/20 15:07 98.6 F 82 18 154/73 H 96 Intake and Output 02/17/20 02/18/20 02/18/20 23:59 07:59 15:59 Other: Weight 82.1 kg Patient Weight 02/18/20 23:59 Weight 82.1 kg Narrative: She was awake, and alert. She answers questions appropriately but sometimes struggle to remember details which her filled in. She was in no acute distress. Results - Imaging Additional studies: Procedures Administration of tetanus toxoid (08/15/12) Arthrocentesis (08/31/12) Arthrotomy for removal of prosthesis without replacement, knee (08/31/12) Control of epistaxis by anterior nasal packing (07/29/13) Injection or infusion of other therapeutic or prophylactic substance (07/29/13) Insertion or replacement of (cement) spacer (08/31/12) Other myectomy (03/03/12) Total hip replacement (07/17/11) Total knee replacement (11/25/10) Transfusion of other serum (08/31/12) Transfusion of packed cells (08/31/12) Venous catheterization, not elsewhere classified (08/31/12) Assessment and Plan (1) Macrocytosis without anemia Status: Acute Ms. Livingston has a macrocytosis without anemia. Her primary physician, Dr. Saavedra, has evaluated her for a reticulocytosis, B12 and folate deficiency. These tests have been normal. She has normal liver function test. The macrocytosis is longstanding dating back to at least 2011 and has been con sistently present with some variation. We discussed the differential diagnosis. I do not think it is likely that she has thiamin response of megaloblastic anemia syndrome given the fact that her hearing difficult occurred later in life. I explained that alcohol can sometimes cause a macrocytosis. She does not drink much but there can be variable sensitivity to this agent. She does consume alcohol daily. However, in the absence of any other findings such as liver dysfunction or anemia I would not suggest that she discontinue alcohol intake simply because of the macrocytosis. Other possibilities include a compensated hemolytic state, cold agglutinin disease, hypothyroidism, and copper deficiency. We will screen for these for conditions today with lab tests. They live in [place] in its somewhat difficult for them to get here. Accordingly, I will plan to call them next week with results. If there are any significant abnormalities we will pursue them appropriately. Impression: 1. Macrocytosis, variable, asymptomatic, without other associated abnormalities on the CBC, continuously present since at least 2011 2. Patient consumes 1-1/2 scotch drinks daily 3. B12 and folate levels were normal 3. Other medical problems as listed above Recommendations: 1. LDH, haptoglobin, direct antiglobulin test and cold agglutinins 2. CBC with manual diff and peripheral smear review 3. TSH 4. Serum copper 5. I will call the patient in a week with the results of these tests. Any significant abnormalities we will be appropriately pursued. Thank Dr. Saavedra for referring this very pleasant and interesting patient. I personally spent 31 minutes in today's [id number] visit with greater than 50% of the time spent in counseling regarding the issues outlined above.
[2020-02-18 16:41] LABS: Hematocrit 43.4 % (36-46); Hemoglobin 14.8 g/dL (12.0-16.0); Mean Corpuscular HGB Conc 34.1 % (30-36); Mean Corpuscular Volume 117.5 fL (80-100); Platelet Count 203 X10^3/uL (150-400); Red Blood Cell Count 3.69 X10^6/uL (4.0-5.2); Red Cell Distribution Width 13.2 % (11.6-14.8); White Blood Cell Count 7.2 X10^3/uL (4.5-11.0)
[2020-02-18 17:01] LABS: Macrocytosis 2+; Neutrophils Absolute Manual 4968 /uL (3000-5900); Total Cells Counted 100
[2020-02-18 17:02] LABS: Platelet Estimate Adequate on smear
[2020-02-18 18:07] LABS: Thyroid Stimulating Hormone 2.03 uIU/mL (0.47-4.68)
[2020-02-19 05:22] LABS: Haptoglobin 99 mg/dL (41-333)
[2020-02-19 08:13] LABS: Cold Agglutinins Negative (Neg <1:32)
== END ==
PROVIDERS: Family Provider Student in an Organized Health Care Education/Training Program; PCP Student in an Organized Health Care Education/Training Program; Referring Provider Student in an Organized Health Care Education/Training Program; Visit Provider Internal Medicine
DX: D53.9 Nutritional anemia, unspecified (principal); G30.9 Alzheimer's disease, unspecified; F02.80 Dementia in other diseases classified elsewhere, unspecified severity, without behavioral disturbance, psychotic disturbance, mood disturbance, and anxiety; I48.91 Unspecified atrial fibrillation; Z79.01 Long term (current) use of anticoagulants; I10 Essential (primary) hypertension
CPT/HCPCS: 36415; 82525; 83010; 84443; 85025; 86157; 86880; 99203; 99213

== ENCOUNTER → 2020-02-23 14:39 | Outpatient (ROUT) | payer MEDICARE, OTHER, SELFPAY ==
[2020-02-23 15:24] LABS: INR 3.1 (0.9-1.3); Prothrombin Time 35.6 SECONDS (10.1-12.7)
== END ==
PROVIDERS: Family Provider Student in an Organized Health Care Education/Training Program; PCP Student in an Organized Health Care Education/Training Program; Visit Provider Student in an Organized Health Care Education/Training Program
DX: I48.91 Unspecified atrial fibrillation (principal); Z79.01 Long term (current) use of anticoagulants
CPT/HCPCS: 85610

== ENCOUNTER → 2020-03-12 15:16 | Outpatient (ROUT) | payer MEDICARE, OTHER, SELFPAY ==
[2020-03-12 15:21] LABS: INR 2.8 (0.9-1.3); Prothrombin Time 31.7 SECONDS (10.1-12.7)
== END ==
PROVIDERS: Family Provider Student in an Organized Health Care Education/Training Program; PCP Student in an Organized Health Care Education/Training Program; Visit Provider Student in an Organized Health Care Education/Training Program
DX: I48.91 Unspecified atrial fibrillation (principal); Z79.01 Long term (current) use of anticoagulants
CPT/HCPCS: 85610

== ENCOUNTER 2020-04-22 14:30 | Outpatient (RCR) | payer MEDICARE, OTHER, SELFPAY ==
--- NOTE | 2020-01-26 19:59 | PT.OIE ---
Current Diagnoses Weakness (01/20/20) Past Medical History (Last Reviewed 10/29/19 @ 22:58 by Elli Spring PA-C) Chicken pox (Resolved ~1940) Constipation (Acute) Degenerative joint disease (DJD) of lumbar spine (Chronic) Measles (Resolved) Mumps (Resolved) Visit Care Team Role Provider Type Gabby Saavedra MD Attending Provider Physician Family Provider Primary Care Provider Referring Provider Specialty: [facility] Practice Address: [address] [place] [address], [facility] [place], [facility] Email: [email or web address] Physical [facility] Initial Evaluation PT-OP-A Visit Information Start: 01/20/20 15:13 Freq: Status: Active Protocol: Document 01/20/20 17:46 [facility] (Rec: 01/20/20 17:52 [facility] [email or web address]) Out-Patient Physical Therapy Visit Information Visit Information Visit Type Initial Evaluation Visit Start Time 16:00 Visit Stop Time 16:45 Total Visit Minutes 45 Visit Number 1 Evaluation Information Evaluation Date 01/20/20 PT-OP-B Current Condition Start: 01/20/20 15:13 Freq: Status: Active Protocol: Document 01/20/20 17:46 [facility] (Rec: 01/20/20 17:52 [facility] [email or web address]) Current Condition History of Current Condition Onset Date 4 months ago Current Complaints progressive weakness, history of falls, decreased gait and balance History of Current Condition Haily is a 84 year old female presenting to PT with her . She took a fall approximately 4 months ago in a posterior direction and was taken to the ER with a laceration on the back of her head. Since that time she has gotten progressively weaker and has been using a wheelchair for most of the time. Her notes she occasionally uses a walker but this is not often. She reports needing assistance with transfers in and out of bed, from chair to wheel chair , and in and out of the car. Her feels she has had so much inactivity in the past 4 months that she has gotten progressively weaker. Past medical history includes right knee and right hip replacement, history of A fib, memory loss, hx of falls, HBP Treatment Goals Patient/Caregiver Goals Treatment goals include overall strengthening to help Haily with more independence with transfers and mobility Prior Functional Status Baseline Function- ADL's Modified Independent Baseline Function- Mobility Modified Independent Current Functional Impairments (Reported) Functional Limitations- ADL's Haily is dependent on her son and for assistance with ADL's Functional Limitations- Mobility/Gait Haily is requiring a wheelchair for mobility. She needs moderate assist with all transfers and gait. PT-OP-G Mobility & Gait Start: 01/20/20 15:13 Freq: Status: Active Protocol: Document 01/20/20 16:00 [facility] (Rec: 01/26/20 19:59 [facility] [email or web address]) OP Mobility Evaluation Bed Mobility Rolling needs min A to roll in bed Supine to and from Sit Min A supine to sit Transfers Sit to Stand Min A Bed to Chair Transfers Mod A Car Transfers Mod A Floor Transfers Not attempted today Functional Movements Lifting and Carrying unable Squats sit-stand with moderate A Wheelchair Management Type of Wheelchair manual PT-OP-J Posture/Palpation/Skin Start: 01/20/20 15:13 Freq: Status: Active Protocol: Document 01/20/20 16:00 [facility] (Rec: 01/26/20 19:59 [facility] [email or web address]) Posture Evaluation Comments Posture Comments pt is in a forward lean with her posture. She is able to sit at the edge of the bed for postural examination. She is able to maintain balance with a forward lean PT-OP-K Range of Motion Start: 01/20/20 15:13 Freq: Status: Active Protocol: Document 01/20/20 16:00 [facility] (Rec: 01/26/20 19:59 [facility] [email or web address]) Cervical Spine Range of Motion Cervical Spine Active Comments limited cervcial ROM due to history of cervical surgery Hip Goniometric Range of Motion Hip Right Hip ROM WFL No Testing Position Supine Flexion w/Knee Flexed 90 Comments history of right hip posterior KIMMY Knee Goniometric Range of Motion Knee ROM Limitations Knee ROM Limitations Soft Tissue Tightness Comments history of right knee TKA, 110 degrees flexion PT-OP-M Strength Start: 01/20/20 15:13 Freq: Status: Active Protocol: Document 01/20/20 16:00 [facility] (Rec: 01/26/20 19:59 [facility] [email or web address]) Hip Strength Hip Manual Muscle Testing Right Flexion (L2) 2+ Poor+ Extension (S1) 2+ Poor+ Abduction 2+ Poor+ Adduction 2+ Poor+ External Rotation 2+ Poor+ Comments history of right knee and right hip replacement Left Flexion (L2) 3 Fair Extension (S1) 2+ Poor+ Abduction 2 Poor Adduction 3 Fair External Rotation 3 Fair Knee Strength Knee Manual Muscle Testing Left Flexion (S2) 3 Fair Extension (L3) 3 Fair Right Flexion (S2) 2+ Poor+ Extension (L3) 3 Fair PT-OP-T Assessment and Plan Start: 01/20/20 15:13 Freq: Status: Active Protocol: Document 01/20/20 16:00 [facility] (Rec: 01/26/20 19:59 [facility] [email or web address]) Physical Therapy Assessment Rehab Potential Rehabilitation Potential Good Evaluation Complexity Number of Personal Factors/Comorbidities 0 Number of Body Systems Impaired 1-2 Clinical Presentation at Evaluation Stable Impairments Impairments Activity Tolerance,Balance, Gait,Posture,ROM,Strength,Tone Goals LE weakness Impairment LE overall weakness with decreased functional mobility Short Term Goal (STG) Haily is tolerating a strengthening program for her LE to improve her mobility STG Duration 4 weeks Fdc Goal (LTG) Haily is Independent with a HEP to improve strength and functional mobility. LTG Duration 8 weeks Two Impairment Difficulty with car transfers, requiring Mod A for car transfers Lead Programmer Goal (LTG) Haily demonstrated CGA for car transfers LTG Duration 8 weeks One Impairment Since her fall Haily has been using a wheelchair for ambulation only Fdc Goal (LTG) Haily is able to return to using her walker for ambulation in her home. She is able to walk 20-30 feet with her FWW and CGA LTG Duration 8 weeks 1 Impairment Mod assistance for transfers from sit-stand and rolling in bed Lead Programmer Goal (LTG) Haily is able to perform sit- stand with CGA and is rolling in bed independently LTG Duration 8 weeks Assessment Summary Assessment Haily is a 84 year old female who presents to PT today 4 months after a fall in a posterior direction suffering a laceration on her head. She is here with her who had wanted her to begin PT to gain strength as he feels she has gotten much weaker since her fall. Prior to her fall she was using a fww for household ambulation and a wheelchair for longer distances. At this time she is using the wheel chair full roll inspector. She is dependent on her and son to assist her with transfers and for all ADl's. With examination today Haily required moderate A for transfers in and out of her wheel chair. She was mod A for bed mobility and sit- stand. She was mod assist for gait. She has a history of right knee and hip replacement , cervical and lumbar surgeries. Pt's goal for therapy is to return to walking. She would like to be able to transfer in and out of her recliner and out of bed on her own. She would like to be able to walk down her driveway and get in her car. Haily is a good candidate for PT for strength training, gait and balance training and functional mobility training. Physical Therapy Plan Frequency and Duration Frequency of Treatment 2x/Week Duration of Treatment 8 Plan of Care Start Date 01/20/20 Plan of Care End Date 03/16/20 Therapeutic Interventions Therapeutic Interventions Balance Training,Gait Training ,Home Exercise Program, Neuromuscular Re-education, Patient/Caregiver Education, Self-Care/Home Management, Therapeutic Exercises Next Visit Focus/Plan Next Note Type Treatment Note Next Visit Plan Begin a LE strengthening program, gait training with FWW, balance training
--- NOTE | 2020-01-26 19:59 | PT.OPPOC ---
Physical, Occupational & Speech Therapy At [facility] Current Diagnoses Weakness (01/20/20) Visit Care Team Role Provider Type Gabby Saavedra MD Attending Provider Physician Family Provider Primary Care Provider Referring Provider Specialty: Family Practice Address: [address] [place] [address], [facility] [place], [address] Email: [email or web address] Plan Of Care PT-OP-T Assessment and Plan Start: 01/20/20 15:13 Freq: Status: Active Protocol: Document 01/20/20 16:00 [facility] (Rec: 01/26/20 19:59 [facility] [email or web address]) Physical Therapy Assessment Rehab Potential Rehabilitation Potential Good Evaluation Complexity Number of Personal Factors/Comorbidities 0 Number of Body Systems Impaired 1-2 Clinical Presentation at Evaluation Stable Impairments Impairments Activity Tolerance,Balance, Gait,Posture,ROM,Strength,Tone Goals LE weakness Impairment LE overall weakness with decreased functional mobility Short Term Goal (STG) Haily is tolerating a strengthening program for her LE to improve her mobility STG Duration 4 weeks Salesforce Specialist Goal (LTG) Haily is Independent with a HEP to improve strength and functional mobility. LTG Duration 8 weeks Two Impairment Difficulty with car transfers, requiring Mod A for car transfers Nursing Home Goal (LTG) Haily demonstrated CGA for car transfers LTG Duration 8 weeks One Impairment Since her fall Haily has been using a wheelchair for ambulation only Nursing Home Goal (LTG) Haily is able to return to using her walker for ambulation in her home. She is able to walk 20-30 feet with her FWW and CGA LTG Duration 8 weeks 1 Impairment Mod assistance for transfers from sit-stand and rolling in bed Nursing Home Goal (LTG) Haily is able to perform sit- stand with CGA and is rolling in bed independently LTG Duration 8 weeks Assessment Summary Assessment Haily is a 84 year old female who presents to PT today 4 months after a fall in a posterior direction suffering a laceration on her head. She is here with her who had wanted her to begin PT to gain strength as he feels she has gotten much weaker since her fall. Prior to her fall she was using a fww for household ambulation and a wheelchair for longer distances. At this time she is using the wheel chair time cycle operator. She is dependent on her and son to assist her with transfers and for all ADl's. With examination today Haily required moderate A for transfers in and out of her wheel chair. She was mod A for bed mobility and sit- stand. She was mod assist for gait. She has a history of right knee and hip replacement , cervical and lumbar surgeries. Pt's goal for therapy is to return to walking. She would like to be able to transfer in and out of her recliner and out of bed on her own. She would like to be able to walk down her driveway and get in her car. Haily is a good candidate for PT for strength training, gait and balance training and functional mobility training. Physical Therapy Plan Frequency and Duration Frequency of Treatment 2x/Week Duration of Treatment 8 Plan of Care Start Date 01/20/20 Plan of Care End Date 03/16/20 Therapeutic Interventions Therapeutic Interventions Balance Training,Gait Training ,Home Exercise Program, Neuromuscular Re-education, Patient/Caregiver Education, Self-Care/Home Management, Therapeutic Exercises Next Visit Focus/Plan Next Note Type Treatment Note Next Visit Plan Begin a LE strengthening program, gait training with FWW, balance training Plan of Care Dates Plan of Care Start Date 01/20/20 Plan of Care End Date 03/16/20 Electronically Signed by: Lyssa Pretty, PT 01/26/201958 Please Sign and Return: I have reviewed this Plan of Care and certify that the skilled therapy services above are required to meet the patient?s needs. Physician Signature Date Printed Name and Credentials Clinical Instructor Signature Printed Name and Credentials
--- NOTE | 2020-02-03 17:00 | PT.OTN ---
Current Diagnoses Weakness (02/03/20) Physical Therapy Treatment Note PT-OP-A Visit Information Start: 01/20/20 15:13 Freq: Status: Active Protocol: Document 02/03/20 13:43 [facility] (Rec: 02/03/20 13:45 [facility] [email or web address]) Out-Patient Physical Therapy Visit Information Visit Information Visit Type Treatment Note Visit Start Time 13:00 Visit Stop Time 13:45 Total Visit Minutes 45 Visit Number 2 PT-OP-B Current Condition Start: 01/20/20 15:13 Freq: Status: Active Protocol: Document 01/20/20 17:46 [facility] (Rec: 01/20/20 17:52 [facility] [email or web address]) Current Condition History of Current Condition Onset Date 4 months ago Current Complaints progressive weakness, history of falls, decreased gait and balance History of Current Condition Haily is a 84 year old female presenting to PT with her . She took a fall approximately 4 months ago in a posterior direction and was taken to the ER with a laceration on the back of her head. Since that time she has gotten progressively weaker and has been using a wheelchair for most of the time. Her notes she occasionally uses a walker but this is not often. She reports needing assistance with transfers in and out of bed, from chair to wheel chair , and in and out of the car. Her feels she has had so much inactivity in the past 4 months that she has gotten progressively weaker. Past medical history includes right knee and right hip replacement, history of A fib, memory loss, hx of falls, HBP Treatment Goals Patient/Caregiver Goals Treatment goals include overall strengthening to help Haily with more independence with transfers and mobility Prior Functional Status Baseline Function- ADL's Modified Independent Baseline Function- Mobility Modified Independent Current Functional Impairments (Reported) Functional Limitations- ADL's Haily is dependent on her son and for assistance with ADL's Functional Limitations- Mobility/Gait Haily is requiring a wheelchair for mobility. She needs moderate assist with all transfers and gait. PT-OP-C Subjective Start: 01/20/20 15:13 Freq: Status: Active Protocol: Document 02/03/20 13:43 [facility] (Rec: 02/03/20 13:45 [facility] [email or web address]) OP-PT Subjective Patient Comments Patient Comments pt reports she has been walking with her with her fww in the house. He pushes the wheelchair behind her incase she becomes fatigued and needs to sit. She comes to PT in her wheel chair today Patient Reported Progress Improving PT-OP-G Mobility & Gait Start: 01/20/20 15:13 Freq: Status: Active Protocol: Document 01/20/20 16:00 [facility] (Rec: 01/26/20 19:59 [facility] [email or web address]) OP Mobility Evaluation Bed Mobility Rolling needs min A to roll in bed Supine to and from Sit Min A supine to sit Transfers Sit to Stand Min A Bed to Chair Transfers Mod A Car Transfers Mod A Floor Transfers Not attempted today Functional Movements Lifting and Carrying unable Squats sit-stand with moderate A Wheelchair Management Type of Wheelchair manual PT-OP-J Posture/Palpation/Skin Start: 01/20/20 15:13 Freq: Status: Active Protocol: Document 01/20/20 16:00 [facility] (Rec: 01/26/20 19:59 [facility] [email or web address]) Posture Evaluation Comments Posture Comments pt is in a forward lean with her posture. She is able to sit at the edge of the bed for postural examination. She is able to maintain balance with a forward lean PT-OP-K Range of Motion Start: 01/20/20 15:13 Freq: Status: Active Protocol: Document 01/20/20 16:00 [facility] (Rec: 01/26/20 19:59 [facility] [email or web address]) Cervical Spine Range of Motion Cervical Spine Active Comments limited cervcial ROM due to history of cervical surgery Hip Goniometric Range of Motion Hip Right Hip ROM WFL No Testing Position Supine Flexion w/Knee Flexed 90 Comments history of right hip posterior KIMMY Knee Goniometric Range of Motion Knee ROM Limitations Knee ROM Limitations Soft Tissue Tightness Comments history of right knee TKA, 110 degrees flexion PT-OP-M Strength Start: 01/20/20 15:13 Freq: Status: Active Protocol: Document 01/20/20 16:00 [facility] (Rec: 01/26/20 19:59 [facility] [email or web address]) Hip Strength Hip Manual Muscle Testing Right Flexion (L2) 2+ Poor+ Extension (S1) 2+ Poor+ Abduction 2+ Poor+ Adduction 2+ Poor+ External Rotation 2+ Poor+ Comments history of right knee and right hip replacement Left Flexion (L2) 3 Fair Extension (S1) 2+ Poor+ Abduction 2 Poor Adduction 3 Fair External Rotation 3 Fair Knee Strength Knee Manual Muscle Testing Left Flexion (S2) 3 Fair Extension (L3) 3 Fair Right Flexion (S2) 2+ Poor+ Extension (L3) 3 Fair PT-OP-Q Treatments Start: 01/20/20 15:13 Freq: Status: Active Protocol: Document 02/03/20 13:43 [facility] (Rec: 02/03/20 13:45 [facility] [email or web address]) Cardio Equipment Recumbent Elliptical (Biodex) Duration (Minutes) 5 Other pt needs assist to keep her right foot on the petals Therapeutic Exercises Sitting Exercises seated TKE Sitting Exercise Name seated TKE Reps/Minutes x 20 Standing Exercises step ups onto 4 step Standing Exercise Name step ups onto 4 step Side bilateral Reps/Minutes x 5 each leg Comments in parallel bars standing shoulder flexion Standing Exercise Name standing shoulder overhead flexion in parallel bars Side bilateral Reps/Minutes 10 reps Comments CGA with gait belt, pt able to lift both hands but feels off balance standing scap squeezes Standing Exercise Name standing scap squeezes Side bilateral Reps/Minutes x 10 Comments pt tends to lean forward in stading, cues to activate her middle trapezius sit to stand Standing Exercise Name sit to stand Side bilateral Reps/Minutes x 10 Comments chair is pulled up to the parallel bars, cueing for hinging at her hips standing toe taps on 6 step Standing Exercise Name in parallel bars Side bilateral Reps/Minutes 2 x 10 reps parallel bars Standing Exercise Name parallel bars: marches, calf raises, side steps, Side bilateral Reps/Minutes x 20 each PT-OP-T Assessment and Plan Start: 01/20/20 15:13 Freq: Status: Active Protocol: Document 02/03/20 13:43 [facility] (Rec: 02/03/20 16:00 [facility] [email or web address]) Physical Therapy Assessment Assessment Summary Assessment Haily comes to PT with her . He is really encouraging her at home to walk more with the FWW. She is fearful due to her history of falls. Today I started her on the biodex which she tolerated, she needs assistance to scoot her bum all the way back in the seat. We started working on ther ex in the parallel bars and she did really well with this. Bhumi seemed to have more energy today than she did on her initial evaluation. We talked about her bringing in her fww so that we could start gait training next visit with it. She does have only one pair of shoes at this time and they tend to slip and bug her so she took her shoes off today for treatment. Her right foot is very pronated though so i talked to both Bhumi and her about possibly getting a new pair of shoes she could exercise in. Physical Therapy Plan Frequency and Duration Frequency of Treatment 2x/Week Duration of Treatment 8 Plan of Care Start Date 01/20/20 Plan of Care End Date 03/16/20 Therapeutic Interventions Therapeutic Interventions Balance Training,Gait Training ,Home Exercise Program, Neuromuscular Re-education, Patient/Caregiver Education, Self-Care/Home Management, Therapeutic Exercises Next Visit Focus/Plan Next Note Type Treatment Note Next Visit Plan Work on gait training with FWW , ther ex for LE strengthening , begin transfer training from chair to plinth, bed mobility on wide plinth.
--- NOTE | 2020-02-06 13:07 | PT.OTN ---
Current Diagnoses Weakness (02/06/20) Physical Therapy Treatment Note PT-OP-A Visit Information Start: 01/20/20 15:13 Freq: Status: Active Protocol: Document 02/06/20 12:46 [facility] (Rec: 02/06/20 13:07 [facility] [email or web address]) Out-Patient Physical Therapy Visit Information Visit Information Visit Type Treatment Note Visit Start Time 12:03 Visit Stop Time 12:44 Total Visit Minutes 41 Visit Number 3 Number of [facility] [facility] Visits 1 PT-OP-B Current Condition Start: 01/20/20 15:13 Freq: Status: Active Protocol: Document 01/20/20 17:46 [facility] (Rec: 01/20/20 17:52 [facility] [email or web address]) Current Condition History of Current Condition Onset Date 4 months ago Current Complaints progressive weakness, history of falls, decreased gait and balance History of Current Condition Haily is a 84 year old female presenting to PT with her . She took a fall approximately 4 months ago in a posterior direction and was taken to the ER with a laceration on the back of her head. Since that time she has gotten progressively weaker and has been using a wheelchair for most of the time. Her notes she occasionally uses a walker but this is not often. She reports needing assistance with transfers in and out of bed, from chair to wheel chair , and in and out of the car. Her feels she has had so much inactivity in the past 4 months that she has gotten progressively weaker. Past medical history includes right knee and right hip replacement, history of A fib, memory loss, hx of falls, HBP Treatment Goals Patient/Caregiver Goals Treatment goals include overall strengthening to help Haily with more independence with transfers and mobility Prior Functional Status Baseline Function- ADL's Modified Independent Baseline Function- Mobility Modified Independent Current Functional Impairments (Reported) Functional Limitations- ADL's Haily is dependent on her son and for assistance with ADL's Functional Limitations- Mobility/Gait Haily is requiring a wheelchair for mobility. She needs moderate assist with all transfers and gait. PT-OP-C Subjective Start: 01/20/20 15:13 Freq: Status: Active Protocol: Document 02/06/20 12:46 [facility] (Rec: 02/06/20 13:07 [facility] [email or web address]) OP-PT Subjective Patient Comments Patient Comments Pt reports she has been walking only to the bathroom and back to her chair. states she pretty much sits all day long, does not cook or clean. states he tends to pull her up out of bed, doing most of the work for her PT-OP-G Mobility & Gait Start: 01/20/20 15:13 Freq: Status: Active Protocol: Document 01/20/20 16:00 [facility] (Rec: 01/26/20 19:59 [facility] [email or web address]) OP Mobility Evaluation Bed Mobility Rolling needs min A to roll in bed Supine to and from Sit Min A supine to sit Transfers Sit to Stand Min A Bed to Chair Transfers Mod A Car Transfers Mod A Floor Transfers Not attempted today Functional Movements Lifting and Carrying unable Squats sit-stand with moderate A Wheelchair Management Type of Wheelchair manual PT-OP-J Posture/Palpation/Skin Start: 01/20/20 15:13 Freq: Status: Active Protocol: Document 01/20/20 16:00 [facility] (Rec: 01/26/20 19:59 [facility] [email or web address]) Posture Evaluation Comments Posture Comments pt is in a forward lean with her posture. She is able to sit at the edge of the bed for postural examination. She is able to maintain balance with a forward lean PT-OP-K Range of Motion Start: 01/20/20 15:13 Freq: Status: Active Protocol: Document 01/20/20 16:00 [facility] (Rec: 01/26/20 19:59 [facility] [email or web address]) Cervical Spine Range of Motion Cervical Spine Active Comments limited cervcial ROM due to history of cervical surgery Hip Goniometric Range of Motion Hip Right Hip ROM WFL No Testing Position Supine Flexion w/Knee Flexed 90 Comments history of right hip posterior KIMMY Knee Goniometric Range of Motion Knee ROM Limitations Knee ROM Limitations Soft Tissue Tightness Comments history of right knee TKA, 110 degrees flexion PT-OP-M Strength Start: 01/20/20 15:13 Freq: Status: Active Protocol: Document 01/20/20 16:00 [facility] (Rec: 01/26/20 19:59 [facility] [email or web address]) Hip Strength Hip Manual Muscle Testing Right Flexion (L2) 2+ Poor+ Extension (S1) 2+ Poor+ Abduction 2+ Poor+ Adduction 2+ Poor+ External Rotation 2+ Poor+ Comments history of right knee and right hip replacement Left Flexion (L2) 3 Fair Extension (S1) 2+ Poor+ Abduction 2 Poor Adduction 3 Fair External Rotation 3 Fair Knee Strength Knee Manual Muscle Testing Left Flexion (S2) 3 Fair Extension (L3) 3 Fair Right Flexion (S2) 2+ Poor+ Extension (L3) 3 Fair PT-OP-Q Treatments Start: 01/20/20 15:13 Freq: Status: Active Protocol: Document 02/06/20 12:46 [facility] (Rec: 02/06/20 13:07 [facility] [email or web address]) Therapeutic Exercises Sitting Exercises Marching Side bilateral Reps/Minutes 1x20 seated TKE Sitting Exercise Name seated TKE Side bilateral Reps/Minutes x 20 Standing Exercises Marching Side bilateral Equipment Used FWW Reps/Minutes 2x20 sit to stand Standing Exercise Name sit to stand Side bilateral Equipment Used FWW Reps/Minutes x 8 Comments Practiced from different height surfaces Therapeutic Activity Therapeutic Activity Bed Mobility Reps/Minutes 10 min Comments Practicing sit>supine (SBA), Supine>SL (Min A), SL>sitting EOB (Mod A) Gait Training Gait Activity Walking Device Used FWW Level of Assistance SBA Distance/Duration 2x100 feet Comments Cues to keep within walker, spinal extension, look where walking; WC follow with seated rest break in between laps PT-OP-T Assessment and Plan Start: 01/20/20 15:13 Freq: Status: Active Protocol: Document 02/06/20 12:46 [facility] (Rec: 02/06/20 13:07 [facility] [email or web address]) Physical Therapy Assessment Assessment Summary Assessment continues to be encouraging towards pt. Pt tends to lack motivation, often stating she feels unstable. Pt needs frequent rest breaks due to deconditioning but was able to walk further today than she usually does at home according to husbands report of home habits. Bed mobility needing min-mod A for sidelying> sitting EOB. Pt is able to go from sit>supine with SBA, but has trouble straightening out body once down. Practiced bridging hips to scoot laterally and straighten out body on plinth. Physical Therapy Plan Frequency and Duration Frequency of Treatment 2x/Week Duration of Treatment 8 Plan of Care Start Date 01/20/20 Plan of Care End Date 03/16/20 Therapeutic Interventions Therapeutic Interventions Balance Training,Gait Training ,Home Exercise Program, Neuromuscular Re-education, Patient/Caregiver Education, Self-Care/Home Management, Therapeutic Exercises Next Visit Focus/Plan Next Note Type Treatment Note Next Visit Plan Continue working on bed mobility, encouraging pt to use her arms and push with one leg to go from supine>SL. Gait train with FWW, ther ex for LE strengthening
--- NOTE | 2020-02-09 14:30 | PT.OTN ---
Current Diagnoses Weakness (02/09/20) Physical Therapy Treatment Note PT-OP-A Visit Information Start: 01/20/20 15:13 Freq: Status: Active Protocol: Document 02/09/20 14:28 [facility] (Rec: 02/09/20 14:38 [facility] [email or web address]) Out-Patient Physical Therapy Visit Information Visit Information Visit Type Treatment Note Visit Start Time 13:45 Visit Stop Time 14:27 Total Visit Minutes 42 Visit Number 4 Number of [employer] Visits 2 PT-OP-B Current Condition Start: 01/20/20 15:13 Freq: Status: Active Protocol: Document 01/20/20 17:46 [facility] (Rec: 01/20/20 17:52 [facility] [email or web address]) Current Condition History of Current Condition Onset Date 4 months ago Current Complaints progressive weakness, history of falls, decreased gait and balance History of Current Condition Haily is a 84 year old female presenting to PT with her . She took a fall approximately 4 months ago in a posterior direction and was taken to the ER with a laceration on the back of her head. Since that time she has gotten progressively weaker and has been using a wheelchair for most of the time. Her notes she occasionally uses a walker but this is not often. She reports needing assistance with transfers in and out of bed, from chair to wheel chair , and in and out of the car. Her feels she has had so much inactivity in the past 4 months that she has gotten progressively weaker. Past medical history includes right knee and right hip replacement, history of A fib, memory loss, hx of falls, HBP Treatment Goals Patient/Caregiver Goals Treatment goals include overall strengthening to help Haily with more independence with transfers and mobility Prior Functional Status Baseline Function- ADL's Modified Independent Baseline Function- Mobility Modified Independent Current Functional Impairments (Reported) Functional Limitations- ADL's Haily is dependent on her son and for assistance with ADL's Functional Limitations- Mobility/Gait Haily is requiring a wheelchair for mobility. She needs moderate assist with all transfers and gait. PT-OP-C Subjective Start: 01/20/20 15:13 Freq: Status: Active Protocol: Document 02/09/20 14:28 [facility] (Rec: 02/09/20 14:38 [facility] [email or web address]) OP-PT Subjective Patient Comments Patient Comments Pt reports she has not been walking much over the weekend and she did not do her exercises or practice getting out of bed PT-OP-G Mobility & Gait Start: 01/20/20 15:13 Freq: Status: Active Protocol: Document 01/20/20 16:00 [facility] (Rec: 01/26/20 19:59 [facility] [email or web address]) OP Mobility Evaluation Bed Mobility Rolling needs min A to roll in bed Supine to and from Sit Min A supine to sit Transfers Sit to Stand Min A Bed to Chair Transfers Mod A Car Transfers Mod A Floor Transfers Not attempted today Functional Movements Lifting and Carrying unable Squats sit-stand with moderate A Wheelchair Management Type of Wheelchair manual PT-OP-J Posture/Palpation/Skin Start: 01/20/20 15:13 Freq: Status: Active Protocol: Document 01/20/20 16:00 [facility] (Rec: 01/26/20 19:59 [facility] [email or web address]) Posture Evaluation Comments Posture Comments pt is in a forward lean with her posture. She is able to sit at the edge of the bed for postural examination. She is able to maintain balance with a forward lean PT-OP-K Range of Motion Start: 01/20/20 15:13 Freq: Status: Active Protocol: Document 01/20/20 16:00 [facility] (Rec: 01/26/20 19:59 [facility] [email or web address]) Cervical Spine Range of Motion Cervical Spine Active Comments limited cervcial ROM due to history of cervical surgery Hip Goniometric Range of Motion Hip Right Hip ROM WFL No Testing Position Supine Flexion w/Knee Flexed 90 Comments history of right hip posterior KIMMY Knee Goniometric Range of Motion Knee ROM Limitations Knee ROM Limitations Soft Tissue Tightness Comments history of right knee TKA, 110 degrees flexion PT-OP-M Strength Start: 01/20/20 15:13 Freq: Status: Active Protocol: Document 01/20/20 16:00 [facility] (Rec: 01/26/20 19:59 [facility] [email or web address]) Hip Strength Hip Manual Muscle Testing Right Flexion (L2) 2+ Poor+ Extension (S1) 2+ Poor+ Abduction 2+ Poor+ Adduction 2+ Poor+ External Rotation 2+ Poor+ Comments history of right knee and right hip replacement Left Flexion (L2) 3 Fair Extension (S1) 2+ Poor+ Abduction 2 Poor Adduction 3 Fair External Rotation 3 Fair Knee Strength Knee Manual Muscle Testing Left Flexion (S2) 3 Fair Extension (L3) 3 Fair Right Flexion (S2) 2+ Poor+ Extension (L3) 3 Fair PT-OP-Q Treatments Start: 01/20/20 15:13 Freq: Status: Active Protocol: Document 02/09/20 14:28 [facility] (Rec: 02/09/20 14:38 [facility] [email or web address]) Therapeutic Exercises Supine Exercises HS Stretch Supine Exercise Name Passive HS stretch-therapist assisted Side left Reps/Minutes 2x30 sec Bridge Reps/Minutes 2x5 Comments L HS cramp Sitting Exercises Marching Side bilateral Reps/Minutes 1x20 seated TKE Sitting Exercise Name seated TKE Side bilateral Reps/Minutes x10 Standing Exercises Marching Side bilateral Equipment Used FWW Reps/Minutes 2x20 sit to stand Standing Exercise Name sit to stand Side bilateral Equipment Used FWW Reps/Minutes x 10 Therapeutic Activity Therapeutic Activity Bed Mobility Reps/Minutes 15 min Comments Practicing sit>supine (SBA), Supine>SL (Min A), SL>sitting EOB (Mod A) Gait Training Gait Activity Walking Device Used FWW Level of Assistance SBA Distance/Duration 1x150, 1x100 feet Comments Cues to keep within walker, spinal extension, look where walking; seated rest break in between laps PT-OP-T Assessment and Plan Start: 01/20/20 15:13 Freq: Status: Active Protocol: Document 02/09/20 14:28 [facility] (Rec: 02/09/20 14:38 [facility] [email or web address]) Physical Therapy Assessment Assessment Summary Assessment Pt had increased SOB today requiring more rest breaks in between each activity. Pt continues to have trust issues during bed mobility and needed moderate assistance today for supine>SL and SL> sitting EOB. Pt is able to go from seated>supine with SBA. Pt performed gait training without fear today, increasing total distance walked, and did not need a WC follow. Physical Therapy Plan Frequency and Duration Frequency of Treatment 2x/Week Duration of Treatment 8 Plan of Care Start Date 01/20/20 Plan of Care End Date 03/16/20 Therapeutic Interventions Therapeutic Interventions Balance Training,Gait Training ,Home Exercise Program, Neuromuscular Re-education, Patient/Caregiver Education, Self-Care/Home Management, Therapeutic Exercises Next Visit Focus/Plan Next Note Type Treatment Note Next Visit Plan Continue working on bed mobility, encouraging pt to use her arms and push with one leg to go from supine>SL. Gait train with FWW, ther ex for LE strengthening
--- NOTE | 2020-02-12 14:59 | PT.OTN ---
Current Diagnoses Weakness (02/12/20) Physical Therapy Treatment Note PT-OP-A Visit Information Start: 01/20/20 15:13 Freq: Status: Active Protocol: Document 02/12/20 13:01 [facility] (Rec: 02/12/20 13:20 [facility] [id number]) Out-Patient Physical Therapy Visit Information Visit Information Visit Type Treatment Note Visit Start Time 13:00 Visit Stop Time 13:45 Total Visit Minutes 45 Visit Number 5 Number of OBSTETRICS TEACHER Visits 0 PT-OP-B Current Condition Start: 01/20/20 15:13 Freq: Status: Active Protocol: Document 01/20/20 17:46 [facility] (Rec: 01/20/20 17:52 [facility] [id number]) Current Condition History of Current Condition Onset Date 4 months ago Current Complaints progressive weakness, history of falls, decreased gait and balance History of Current Condition Haily is a 84 year old female presenting to PT with her . She took a fall approximately 4 months ago in a posterior direction and was taken to the ER with a laceration on the back of her head. Since that time she has gotten progressively weaker and has been using a wheelchair for most of the time. Her notes she occasionally uses a walker but this is not often. She reports needing assistance with transfers in and out of bed, from chair to wheel chair , and in and out of the car. Her feels she has had so much inactivity in the past 4 months that she has gotten progressively weaker. Past medical history includes right knee and right hip replacement, history of A fib, memory loss, hx of falls, HBP Treatment Goals Patient/Caregiver Goals Treatment goals include overall strengthening to help Haily with more independence with transfers and mobility Prior Functional Status Baseline Function- ADL's Modified Independent Baseline Function- Mobility Modified Independent Current Functional Impairments (Reported) Functional Limitations- ADL's Haily is dependent on her son and for assistance with ADL's Functional Limitations- Mobility/Gait Haily is requiring a wheelchair for mobility. She needs moderate assist with all transfers and gait. PT-OP-C Subjective Start: 01/20/20 15:13 Freq: Status: Active Protocol: Document 02/12/20 13:01 [facility] (Rec: 02/12/20 13:20 [facility] [id number]) OP-PT Subjective Patient Comments Patient Comments Pt reports she has been trying to walk more. She is still feeling pretty tired today PT-OP-G Mobility & Gait Start: 01/20/20 15:13 Freq: Status: Active Protocol: Document 01/20/20 16:00 [facility] (Rec: 01/26/20 19:59 [facility] [id number]) OP Mobility Evaluation Bed Mobility Rolling needs min A to roll in bed Supine to and from Sit Min A supine to sit Transfers Sit to Stand Min A Bed to Chair Transfers Mod A Car Transfers Mod A Floor Transfers Not attempted today Functional Movements Lifting and Carrying unable Squats sit-stand with moderate A Wheelchair Management Type of Wheelchair manual PT-OP-J Posture/Palpation/Skin Start: 01/20/20 15:13 Freq: Status: Active Protocol: Document 01/20/20 16:00 [facility] (Rec: 01/26/20 19:59 [facility] [id number]) Posture Evaluation Comments Posture Comments pt is in a forward lean with her posture. She is able to sit at the edge of the bed for postural examination. She is able to maintain balance with a forward lean PT-OP-K Range of Motion Start: 01/20/20 15:13 Freq: Status: Active Protocol: Document 01/20/20 16:00 [facility] (Rec: 01/26/20 19:59 [facility] [id number]) Cervical Spine Range of Motion Cervical Spine Active Comments limited cervcial ROM due to history of cervical surgery Hip Goniometric Range of Motion Hip Right Hip ROM WFL No Testing Position Supine Flexion w/Knee Flexed 90 Comments history of right hip posterior KIMMY Knee Goniometric Range of Motion Knee ROM Limitations Knee ROM Limitations Soft Tissue Tightness Comments history of right knee TKA, 110 degrees flexion PT-OP-M Strength Start: 01/20/20 15:13 Freq: Status: Active Protocol: Document 01/20/20 16:00 [facility] (Rec: 01/26/20 19:59 [facility] [email or web address]) Hip Strength Hip Manual Muscle Testing Right Flexion (L2) 2+ Poor+ Extension (S1) 2+ Poor+ Abduction 2+ Poor+ Adduction 2+ Poor+ External Rotation 2+ Poor+ Comments history of right knee and right hip replacement Left Flexion (L2) 3 Fair Extension (S1) 2+ Poor+ Abduction 2 Poor Adduction 3 Fair External Rotation 3 Fair Knee Strength Knee Manual Muscle Testing Left Flexion (S2) 3 Fair Extension (L3) 3 Fair Right Flexion (S2) 2+ Poor+ Extension (L3) 3 Fair PT-OP-Q Treatments Start: 01/20/20 15:13 Freq: Status: Active Protocol: Document 02/12/20 13:01 [facility] (Rec: 02/12/20 13:20 [facility] [id number]) Cardio Equipment Recumbent Elliptical (Biodex) Duration (Minutes) 5 Other pt needs assist to keep her right foot on the petals Therapeutic Exercises Supine Exercises lower trunk rotation Supine Exercise Name lower trunk rotation Side bilateral Reps/Minutes x 10 reps Bilaterally HS Stretch Supine Exercise Name Passive HS stretch-therapist assisted Side left Reps/Minutes 2x30 sec Bridge Reps/Minutes 2x5 Comments L HS cramp Sitting Exercises Marching Side bilateral Reps/Minutes 1x20 seated TKE Sitting Exercise Name seated TKE Side bilateral Reps/Minutes x10 Standing Exercises Marching Side bilateral Equipment Used FWW Reps/Minutes 2x20 step ups onto 4 step Standing Exercise Name step ups onto 4 step Side bilateral Reps/Minutes x 5 each leg Comments in parallel bars standing shoulder flexion Standing Exercise Name standing shoulder overhead flexion in parallel bars Side bilateral Reps/Minutes 10 reps Comments CGA with gait belt, pt able to lift both hands but feels off balance standing scap squeezes Standing Exercise Name standing scap squeezes Side bilateral Reps/Minutes x 10 Comments pt tends to lean forward in stading, cues to activate her middle trapezius sit to stand Standing Exercise Name sit to stand Side bilateral Equipment Used FWW Reps/Minutes x 10 standing toe taps on 6 step Standing Exercise Name in parallel bars Side bilateral Reps/Minutes 2 x 10 reps parallel bars Standing Exercise Name parallel bars: marches, calf raises, side steps, Side bilateral Reps/Minutes x 20 each Therapeutic Activity Therapeutic Activity Bed Mobility Reps/Minutes 15 min Comments Practicing sit>supine (SBA), Supine>SL (Min A), SL>sitting EOB (Mod A) PT-OP-T Assessment and Plan Start: 01/20/20 15:13 Freq: Status: Active Protocol: Document 02/12/20 13:01 [facility] (Rec: 02/12/20 13:20 [facility] [id number]) Physical Therapy Assessment Assessment Summary Assessment Bhumi was able to ambulate 2 times around our clinic hallway with a rest break inbetween. Transfers are improving but she has difficulty rolling onto her right side and part of this is fear. I had her on themat table today so she had plenty of room but this was still scary for her to roll side to side. I did add in some trunk rotations into her exercises to help with rolling. Physical Therapy Plan Frequency and Duration Frequency of Treatment 2x/Week Duration of Treatment 8 Plan of Care Start Date 01/20/20 Plan of Care End Date 03/16/20 Therapeutic Interventions Therapeutic Interventions Balance Training,Gait Training ,Home Exercise Program, Neuromuscular Re-education, Patient/Caregiver Education, Self-Care/Home Management, Therapeutic Exercises Next Visit Focus/Plan Next Note Type Treatment Note Next Visit Plan continue progressing bed mobility and use of UE, gait and balance training, endurance training, Le strengthening.
--- NOTE | 2020-02-16 12:55 | PT.OTN ---
Current Diagnoses Weakness (02/16/20) Physical Therapy Treatment Note PT-OP-A Visit Information Start: 01/20/20 15:13 Freq: Status: Active Protocol: Document 02/16/20 12:47 [facility] (Rec: 02/16/20 12:55 MA [email or web address]) Out-Patient Physical Therapy Visit Information Visit Information Visit Type Treatment Note Visit Start Time 12:00 Visit Stop Time 12:45 Total Visit Minutes 45 Visit Number 6 Number of VENTURE CAPITALIST Visits 1 PT-OP-B Current Condition Start: 01/20/20 15:13 Freq: Status: Active Protocol: Document 01/20/20 17:46 [facility] (Rec: 01/20/20 17:52 [facility] [email or web address]) Current Condition History of Current Condition Onset Date 4 months ago Current Complaints progressive weakness, history of falls, decreased gait and balance History of Current Condition Haily is a 84 year old female presenting to PT with her . She took a fall approximately 4 months ago in a posterior direction and was taken to the ER with a laceration on the back of her head. Since that time she has gotten progressively weaker and has been using a wheelchair for most of the time. Her notes she occasionally uses a walker but this is not often. She reports needing assistance with transfers in and out of bed, from chair to wheel chair , and in and out of the car. Her feels she has had so much inactivity in the past 4 months that she has gotten progressively weaker. Past medical history includes right knee and right hip replacement, history of A fib, memory loss, hx of falls, HBP Treatment Goals Patient/Caregiver Goals Treatment goals include overall strengthening to help Haily with more independence with transfers and mobility Prior Functional Status Baseline Function- ADL's Modified Independent Baseline Function- Mobility Modified Independent Current Functional Impairments (Reported) Functional Limitations- ADL's Haily is dependent on her son and for assistance with ADL's Functional Limitations- Mobility/Gait Haily is requiring a wheelchair for mobility. She needs moderate assist with all transfers and gait. PT-OP-C Subjective Start: 01/20/20 15:13 Freq: Status: Active Protocol: Document 02/16/20 12:47 MA (Rec: 02/16/20 12:55 MA [email or web address]) OP-PT Subjective Patient Comments Patient Comments Pt reports she is doing her marches sitting and standing at home and has been walking more around the house. states she is more confident walking but has not been working on bed mobility PT-OP-G Mobility & Gait Start: 01/20/20 15:13 Freq: Status: Active Protocol: Document 01/20/20 16:00 [facility] (Rec: 01/26/20 19:59 [facility] [email or web address]) OP Mobility Evaluation Bed Mobility Rolling needs min A to roll in bed Supine to and from Sit Min A supine to sit Transfers Sit to Stand Min A Bed to Chair Transfers Mod A Car Transfers Mod A Floor Transfers Not attempted today Functional Movements Lifting and Carrying unable Squats sit-stand with moderate A Wheelchair Management Type of Wheelchair manual PT-OP-J Posture/Palpation/Skin Start: 01/20/20 15:13 Freq: Status: Active Protocol: Document 01/20/20 16:00 [facility] (Rec: 01/26/20 19:59 [facility] [email or web address]) Posture Evaluation Comments Posture Comments pt is in a forward lean with her posture. She is able to sit at the edge of the bed for postural examination. She is able to maintain balance with a forward lean PT-OP-K Range of Motion Start: 01/20/20 15:13 Freq: Status: Active Protocol: Document 01/20/20 16:00 [facility] (Rec: 01/26/20 19:59 [facility] [email or web address]) Cervical Spine Range of Motion Cervical Spine Active Comments limited cervcial ROM due to history of cervical surgery Hip Goniometric Range of Motion Hip Right Hip ROM WFL No Testing Position Supine Flexion w/Knee Flexed 90 Comments history of right hip posterior KIMMY Knee Goniometric Range of Motion Knee ROM Limitations Knee ROM Limitations Soft Tissue Tightness Comments history of right knee TKA, 110 degrees flexion PT-OP-M Strength Start: 01/20/20 15:13 Freq: Status: Active Protocol: Document 01/20/20 16:00 [facility] (Rec: 01/26/20 19:59 [facility] [email or web address]) Hip Strength Hip Manual Muscle Testing Right Flexion (L2) 2+ Poor+ Extension (S1) 2+ Poor+ Abduction 2+ Poor+ Adduction 2+ Poor+ External Rotation 2+ Poor+ Comments history of right knee and right hip replacement Left Flexion (L2) 3 Fair Extension (S1) 2+ Poor+ Abduction 2 Poor Adduction 3 Fair External Rotation 3 Fair Knee Strength Knee Manual Muscle Testing Left Flexion (S2) 3 Fair Extension (L3) 3 Fair Right Flexion (S2) 2+ Poor+ Extension (L3) 3 Fair PT-OP-Q Treatments Start: 01/20/20 15:13 Freq: Status: Active Protocol: Document 02/16/20 12:47 [facility] (Rec: 02/16/20 12:55 MA [email or web address]) Therapeutic Exercises Standing Exercises Marching Side bilateral Equipment Used Parallel Bars Reps/Minutes 2x20 step ups onto 4 step Standing Exercise Name step ups forward/sideways onto 4 step Side bilateral Reps/Minutes x 5 each leg Comments in parallel bars parallel bars Standing Exercise Name Extension Side bilateral Reps/Minutes x8 Therapeutic Activity Therapeutic Activity Bed Mobility Reps/Minutes 15 min Comments Practicing sit>supine (SBA), Supine>SL (Min A), SL>sitting EOB (Mod A) Gait Training Gait Activity Walking Device Used FWW Level of Assistance SBA Distance/Duration 2x200 feet Comments Cues to keep within walker, spinal extension, look where walking; seated rest break in between laps PT-OP-T Assessment and Plan Start: 01/20/20 15:13 Freq: Status: Active Protocol: Document 02/16/20 12:47 [facility] (Rec: 02/16/20 12:55 MA [email or web address]) Physical Therapy Assessment Goals LE weakness Impairment LE overall weakness with decreased functional mobility Short Term Goal (STG) Haily is tolerating a strengthening program for her LE to improve her mobility STG Duration 4 weeks Director Asset Goal (LTG) Haily is Independent with a HEP to improve strength and functional mobility. LTG Duration 8 weeks Two Impairment Difficulty with car transfers, requiring Mod A for car transfers Director Asset Goal (LTG) Haily demonstrated CGA for car transfers LTG Duration 8 weeks One Impairment Since her fall Haily has been using a wheelchair for ambulation only Senior Care Goal (LTG) Haily is able to return to using her walker for ambulation in her home. She is able to walk 20-30 feet with her FWW and CGA LTG Duration 8 weeks 1 Impairment Mod assistance for transfers from sit-stand and rolling in bed Director Asset Goal (LTG) Haily is able to perform sit- stand with CGA and is rolling in bed independently LTG Duration 8 weeks Assessment Summary Assessment Bhumi was able to ambulate farther today than previous session. She still has apprehension about rolling R due to fear of falling getting out of bed. Able to roll L without assistance on low mat table becasue she knew she wouldn't fall that direction. She needs less assistance to go from SL to sitting EOB today but needs to feel secure with therapists touch or else cries out due to fear. Pt tolerated exercises with less rest breaks during tx. Physical Therapy Plan Frequency and Duration Frequency of Treatment 2x/Week Duration of Treatment 8 Plan of Care Start Date 01/20/20 Plan of Care End Date 03/16/20 Therapeutic Interventions Therapeutic Interventions Balance Training,Gait Training ,Home Exercise Program, Neuromuscular Re-education, Patient/Caregiver Education, Self-Care/Home Management, Therapeutic Exercises Next Visit Focus/Plan Next Note Type Treatment Note Next Visit Plan continue progressing bed mobility and use of UE, gait and balance training, endurance training, Le strengthening.
--- NOTE | 2020-02-20 12:58 | PT.OTN ---
Current Diagnoses Weakness (02/20/20) Physical Therapy Treatment Note PT-OP-A Visit Information Start: 01/20/20 15:13 Freq: Status: Active Protocol: Document 02/20/20 12:47 MA (Rec: 02/20/20 12:58 MA [email or web address]) Out-Patient Physical Therapy Visit Information Visit Information Visit Type Treatment Note Visit Start Time 12:03 Visit Stop Time 12:45 Total Visit Minutes 42 Visit Number 7 Number of SERVICE CREW LEADER Visits 2 PT-OP-B Current Condition Start: 01/20/20 15:13 Freq: Status: Active Protocol: Document 01/20/20 17:46 [facility] (Rec: 01/20/20 17:52 [facility] [email or web address]) Current Condition History of Current Condition Onset Date 4 months ago Current Complaints progressive weakness, history of falls, decreased gait and balance History of Current Condition Haily is a 84 year old female presenting to PT with her . She took a fall approximately 4 months ago in a posterior direction and was taken to the ER with a laceration on the back of her head. Since that time she has gotten progressively weaker and has been using a wheelchair for most of the time. Her notes she occasionally uses a walker but this is not often. She reports needing assistance with transfers in and out of bed, from chair to wheel chair , and in and out of the car. Her feels she has had so much inactivity in the past 4 months that she has gotten progressively weaker. Past medical history includes right knee and right hip replacement, history of A fib, memory loss, hx of falls, HBP Treatment Goals Patient/Caregiver Goals Treatment goals include overall strengthening to help Hialy with more independence with transfers and mobility Prior Functional Status Baseline Function- ADL's Modified Independent Baseline Function- Mobility Modified Independent Current Functional Impairments (Reported) Functional Limitations- ADL's Haily is dependent on her son and for assistance with ADL's Functional Limitations- Mobility/Gait Haily is requiring a wheelchair for mobility. She needs moderate assist with all transfers and gait. PT-OP-C Subjective Start: 01/20/20 15:13 Freq: Status: Active Protocol: Document 02/20/20 12:47 MA (Rec: 02/20/20 12:58 MA [email or web address]) OP-PT Subjective Patient Comments Patient Comments Pt arrives with . states he is still helping her up in bed and he can't get her to swing her feet over the edge. Pt states she is scared and the bumper on the bed gets in her way PT-OP-G Mobility & Gait Start: 01/20/20 15:13 Freq: Status: Active Protocol: Document 01/20/20 16:00 [facility] (Rec: 01/26/20 19:59 [facility] [email or web address]) OP Mobility Evaluation Bed Mobility Rolling needs min A to roll in bed Supine to and from Sit Min A supine to sit Transfers Sit to Stand Min A Bed to Chair Transfers Mod A Car Transfers Mod A Floor Transfers Not attempted today Functional Movements Lifting and Carrying unable Squats sit-stand with moderate A Wheelchair Management Type of Wheelchair manual PT-OP-J Posture/Palpation/Skin Start: 01/20/20 15:13 Freq: Status: Active Protocol: Document 01/20/20 16:00 [facility] (Rec: 01/26/20 19:59 [facility] [email or web address]) Posture Evaluation Comments Posture Comments pt is in a forward lean with her posture. She is able to sit at the edge of the bed for postural examination. She is able to maintain balance with a forward lean PT-OP-K Range of Motion Start: 01/20/20 15:13 Freq: Status: Active Protocol: Document 01/20/20 16:00 [facility] (Rec: 01/26/20 19:59 [facility] [email or web address]) Cervical Spine Range of Motion Cervical Spine Active Comments limited cervcial ROM due to history of cervical surgery Hip Goniometric Range of Motion Hip Right Hip ROM WFL No Testing Position Supine Flexion w/Knee Flexed 90 Comments history of right hip posterior KIMMY Knee Goniometric Range of Motion Knee ROM Limitations Knee ROM Limitations Soft Tissue Tightness Comments history of right knee TKA, 110 degrees flexion PT-OP-M Strength Start: 01/20/20 15:13 Freq: Status: Active Protocol: Document 01/20/20 16:00 [facility] (Rec: 01/26/20 19:59 [facility] [email or web address]) Hip Strength Hip Manual Muscle Testing Right Flexion (L2) 2+ Poor+ Extension (S1) 2+ Poor+ Abduction 2+ Poor+ Adduction 2+ Poor+ External Rotation 2+ Poor+ Comments history of right knee and right hip replacement Left Flexion (L2) 3 Fair Extension (S1) 2+ Poor+ Abduction 2 Poor Adduction 3 Fair External Rotation 3 Fair Knee Strength Knee Manual Muscle Testing Left Flexion (S2) 3 Fair Extension (L3) 3 Fair Right Flexion (S2) 2+ Poor+ Extension (L3) 3 Fair PT-OP-Q Treatments Start: 01/20/20 15:13 Freq: Status: Active Protocol: Document 02/20/20 12:47 MA (Rec: 02/20/20 12:58 MA [email or web address]) Therapeutic Exercises Standing Exercises Marching Side bilateral Equipment Used Parallel Bars Reps/Minutes 2x20 Therapeutic Activity Therapeutic Activity Bed Mobility Reps/Minutes 15 min Comments Practicing sit>supine (SBA), Supine>SL (Min A), SL>sitting EOB (Min A) Gait Training Gait Activity Walking Description Foward and backward walking Device Used FWW Level of Assistance SBA Distance/Duration 2x200 feet, 2x50 feet Comments Cues to keep within walker, spinal extension, look where walking; seated rest break in between laps. Neuro Re-Education Treatment Coordination Activities Picking up Details Picking up cones from floor Equipment FWW Reps/Duration 5 minutes Comments seated rest breaks taken, CGA, cues to bend knees when picking objects up; (practiced seated reaching first) Self-Care/Home Management Treatment Education Patient Education Safety Other Education Raised pt's walker up one knotch due to pt's request. pt able to ambulate well at new height but SERVICE CREW LEADER educated to watch for any LOB or shd elevation PT-OP-T Assessment and Plan Start: 01/20/20 15:13 Freq: Status: Active Protocol: Document 02/20/20 12:47 MA (Rec: 02/20/20 12:58 MA [email or web address]) Physical Therapy Assessment Goals LE weakness Impairment LE overall weakness with decreased functional mobility Short Term Goal (STG) Haily is tolerating a strengthening program for her LE to improve her mobility STG Duration 4 weeks Security Technician Goal (LTG) Haily is Independent with a HEP to improve strength and functional mobility. LTG Duration 8 weeks Two Impairment Difficulty with car transfers, requiring Mod A for car transfers Security Technician Goal (LTG) Haily demonstrated CGA for car transfers LTG Duration 8 weeks One Impairment Since her fall Haily has been using a wheelchair for ambulation only [facility]dc Goal (LTG) Haily is able to return to using her walker for ambulation in her home. She is able to walk 20-30 feet with her FWW and CGA LTG Duration 8 weeks 1 Impairment Mod assistance for transfers from sit-stand and rolling in bed Security Technician Goal (LTG) Haily is able to perform sit- stand with CGA and is rolling in bed independently LTG Duration 8 weeks Assessment Summary Assessment Bhumi was able to ambulate at an increased speed today with longer strides without cues showing pt carryover of training. Started practice of backwards walking with minor apprehension by pt. Worked on picking up objects from floor in both standing and sitting with no LOB but pt showed apprehension stating she gets nervous still. Pt placed in center of large mat table today for bed mobility practice. When going from SL to seated EOB, pt's first attempt was moderate assist, after SERVICE CREW LEADER encouraged pt to do more of the work, only needed Min A.
--- NOTE | 2020-02-23 13:19 | PT-OP ANOTE ---
Pt called and message left re: no show and next scheduled appt.
--- NOTE | 2020-02-24 15:16 | PT.OTN ---
Current Diagnoses Weakness (02/24/20) Physical Therapy Treatment Note PT-OP-A Visit Information Start: 01/20/20 15:13 Freq: Status: Active Protocol: Document 02/24/20 14:39 LR (Rec: 02/24/20 15:15 [facility] [id number]) Out-Patient Physical Therapy Visit Information Visit Information Visit Type Treatment Note Visit Start Time 14:31 Visit Stop Time 15:12 Total Visit Minutes 41 Visit Number 8 Number of VARNISH THINNER Visits 0 PT-OP-B Current Condition Start: 01/20/20 15:13 Freq: Status: Active Protocol: Document 01/20/20 17:46 [facility] (Rec: 01/20/20 17:52 [facility] [email or web address]) Current Condition History of Current Condition Onset Date 4 months ago Current Complaints progressive weakness, history of falls, decreased gait and balance History of Current Condition Haily is a 84 year old female presenting to PT with her . She took a fall approximately 4 months ago in a posterior direction and was taken to the ER with a laceration on the back of her head. Since that time she has gotten progressively weaker and has been using a wheelchair for most of the time. Her notes she occasionally uses a walker but this is not often. She reports needing assistance with transfers in and out of bed, from chair to wheel chair , and in and out of the car. Her feels she has had so much inactivity in the past 4 months that she has gotten progressively weaker. Past medical history includes right knee and right hip replacement, history of A fib, memory loss, hx of falls, HBP Treatment Goals Patient/Caregiver Goals Treatment goals include overall strengthening to help Haily with more independence with transfers and mobility Prior Functional Status Baseline Function- ADL's Modified Independent Baseline Function- Mobility Modified Independent Current Functional Impairments (Reported) Functional Limitations- ADL's Haily is dependent on her son and for assistance with ADL's Functional Limitations- Mobility/Gait Haily is requiring a wheelchair for mobility. She needs moderate assist with all transfers and gait. PT-OP-C Subjective Start: 01/20/20 15:13 Freq: Status: Active Protocol: Document 02/24/20 14:39 LR (Rec: 02/24/20 15:15 [facility] [id number]) OP-PT Subjective Patient Comments Patient Comments states pt still struggling w/bed mobility but she is walking w/ w.c follow at home PT-OP-G Mobility & Gait Start: 01/20/20 15:13 Freq: Status: Active Protocol: Document 01/20/20 16:00 [facility] (Rec: 01/26/20 19:59 [facility] [email or web address]) OP Mobility Evaluation Bed Mobility Rolling needs min A to roll in bed Supine to and from Sit Min A supine to sit Transfers Sit to Stand Min A Bed to Chair Transfers Mod A Car Transfers Mod A Floor Transfers Not attempted today Functional Movements Lifting and Carrying unable Squats sit-stand with moderate A Wheelchair Management Type of Wheelchair manual PT-OP-J Posture/Palpation/Skin Start: 01/20/20 15:13 Freq: Status: Active Protocol: Document 01/20/20 16:00 [facility] (Rec: 01/26/20 19:59 [facility] [email or web address]) Posture Evaluation Comments Posture Comments pt is in a forward lean with her posture. She is able to sit at the edge of the bed for postural examination. She is able to maintain balance with a forward lean PT-OP-K Range of Motion Start: 01/20/20 15:13 Freq: Status: Active Protocol: Document 01/20/20 16:00 [facility] (Rec: 01/26/20 19:59 [facility] [email or web address]) Cervical Spine Range of Motion Cervical Spine Active Comments limited cervcial ROM due to history of cervical surgery Hip Goniometric Range of Motion Hip Right Hip ROM WFL No Testing Position Supine Flexion w/Knee Flexed 90 Comments history of right hip posterior KIMMY Knee Goniometric Range of Motion Knee ROM Limitations Knee ROM Limitations Soft Tissue Tightness Comments history of right knee TKA, 110 degrees flexion PT-OP-M Strength Start: 01/20/20 15:13 Freq: Status: Active Protocol: Document 01/20/20 16:00 [facility] (Rec: 01/26/20 19:59 [facility] [email or web address]) Hip Strength Hip Manual Muscle Testing Right Flexion (L2) 2+ Poor+ Extension (S1) 2+ Poor+ Abduction 2+ Poor+ Adduction 2+ Poor+ External Rotation 2+ Poor+ Comments history of right knee and right hip replacement Left Flexion (L2) 3 Fair Extension (S1) 2+ Poor+ Abduction 2 Poor Adduction 3 Fair External Rotation 3 Fair Knee Strength Knee Manual Muscle Testing Left Flexion (S2) 3 Fair Extension (L3) 3 Fair Right Flexion (S2) 2+ Poor+ Extension (L3) 3 Fair PT-OP-Q Treatments Start: 01/20/20 15:13 Freq: Status: Active Protocol: Document 02/24/20 14:39 [facility] (Rec: 02/24/20 15:15 [facility] [id number]) Cardio Equipment Recumbent Stepper (Sci-Fit) Duration (Minutes) 5 Resistance 2 Seat Position 9 Therapeutic Exercises Standing Exercises Marching Side bilateral Equipment Used Parallel Bars Reps/Minutes 20 step ups onto 4 step Standing Exercise Name step ups forward onto 4 step Side bilateral Reps/Minutes 2x 5 Comments in parallel bars standing shoulder flexion Standing Exercise Name standing shoulder overhead flexion in parallel bars Side bilateral Reps/Minutes 10 reps Comments CGA with gait belt, pt able to lift both hands but feels off balance Therapeutic Activity Therapeutic Activity Bed Mobility Reps/Minutes 10 min Comments Practicing sit>supine (SBA), Supine>SL (Min A) B, SL> sitting EOB (Min A) Gait Training Gait Activity Walking Device Used FWW Level of Assistance SBA Distance/Duration [id number], 60ft Comments Cues to keep within walker, spinal extension, look where walking; work on not slouching fwd over walker PT-OP-T Assessment and Plan Start: 01/20/20 15:13 Freq: Status: Active Protocol: Document 02/24/20 14:39 [facility] (Rec: 02/24/20 15:15 [facility] [id number]) Physical Therapy Assessment Goals LE weakness Impairment LE overall weakness with decreased functional mobility Short Term Goal (STG) Haily is tolerating a strengthening program for her LE to improve her mobility STG Duration 4 weeks Custodial Goal (LTG) Haily is Independent with a HEP to improve strength and functional mobility. LTG Duration 8 weeks Two Impairment Difficulty with car transfers, requiring Mod A for car transfers Custodial Goal (LTG) Haily demonstrated CGA for car transfers LTG Duration 8 weeks One Impairment Since her fall Haily has been using a wheelchair for ambulation only Riprap Man Goal (LTG) Haily is able to return to using her walker for ambulation in her home. She is able to walk 20-30 feet with her FWW and CGA LTG Duration 8 weeks 1 Impairment Mod assistance for transfers from sit-stand and rolling in bed Custodial Goal (LTG) Haily is able to perform sit- stand with CGA and is rolling in bed independently LTG Duration 8 weeks Assessment Summary Assessment Pt did better wtih gait again today but did require cueing for better posture. She was fatigued with session and still struggles to roll to R to EOB and to sit up from bed. Max cueing required Physical Therapy Plan Frequency and Duration Frequency of Treatment 2x/Week Duration of Treatment 8 Plan of Care Start Date 01/20/20 Plan of Care End Date 03/16/20 Next Visit Focus/Plan Next Note Type Treatment Note Next Visit Plan continue progressing bed mobility and use of UE, gait and balance training, endurance training, Le strengthening.
--- NOTE | 2020-03-01 16:11 | PT.OTN ---
Current Diagnoses Weakness (03/01/20) Physical Therapy Treatment Note PT-OP-A Visit Information Start: 01/20/20 15:13 Freq: Status: Active Protocol: Document 03/01/20 15:21 [facility] (Rec: 03/01/20 16:03 [facility] [id number]) Out-Patient Physical Therapy Visit Information Visit Information Visit Type Treatment Note Visit Start Time 15:16 Visit Stop Time 15:57 Total Visit Minutes 41 Visit Number 9 Number of EXPERIMENTAL ROCKET SLED MECHANIC Visits 0 PT-OP-B Current Condition Start: 01/20/20 15:13 Freq: Status: Active Protocol: Document 01/20/20 17:46 [facility] (Rec: 01/20/20 17:52 [facility] [email or web address]) Current Condition History of Current Condition Onset Date 4 months ago Current Complaints progressive weakness, history of falls, decreased gait and balance History of Current Condition Haily is a 84 year old female presenting to PT with her . She took a fall approximately 4 months ago in a posterior direction and was taken to the ER with a laceration on the back of her head. Since that time she has gotten progressively weaker and has been using a wheelchair for most of the time. Her notes she occasionally uses a walker but this is not often. She reports needing assistance with transfers in and out of bed, from chair to wheel chair , and in and out of the car. Her feels she has had so much inactivity in the past 4 months that she has gotten progressively weaker. Past medical history includes right knee and right hip replacement, history of A fib, memory loss, hx of falls, HBP Treatment Goals Patient/Caregiver Goals Treatment goals include overall strengthening to help Haily with more independence with transfers and mobility Prior Functional Status Baseline Function- ADL's Modified Independent Baseline Function- Mobility Modified Independent Current Functional Impairments (Reported) Functional Limitations- ADL's Haily is dependent on her son and for assistance with ADL's Functional Limitations- Mobility/Gait Haily is requiring a wheelchair for mobility. She needs moderate assist with all transfers and gait. PT-OP-C Subjective Start: 01/20/20 15:13 Freq: Status: Active Protocol: Document 03/01/20 15:21 [facility] (Rec: 03/01/20 16:03 [facility] [id number]) OP-PT Subjective Patient Comments Patient Comments Pt reports not doing any home exercises at home but does walk where she can. PT-OP-G Mobility & Gait Start: 01/20/20 15:13 Freq: Status: Active Protocol: Document 01/20/20 16:00 [facility] (Rec: 01/26/20 19:59 [facility] [email or web address]) OP Mobility Evaluation Bed Mobility Rolling needs min A to roll in bed Supine to and from Sit Min A supine to sit Transfers Sit to Stand Min A Bed to Chair Transfers Mod A Car Transfers Mod A Floor Transfers Not attempted today Functional Movements Lifting and Carrying unable Squats sit-stand with moderate A Wheelchair Management Type of Wheelchair manual PT-OP-J Posture/Palpation/Skin Start: 01/20/20 15:13 Freq: Status: Active Protocol: Document 01/20/20 16:00 [facility] (Rec: 01/26/20 19:59 [facility] [email or web address]) Posture Evaluation Comments Posture Comments pt is in a forward lean with her posture. She is able to sit at the edge of the bed for postural examination. She is able to maintain balance with a forward lean PT-OP-K Range of Motion Start: 01/20/20 15:13 Freq: Status: Active Protocol: Document 01/20/20 16:00 [facility] (Rec: 01/26/20 19:59 [facility] [email or web address]) Cervical Spine Range of Motion Cervical Spine Active Comments limited cervcial ROM due to history of cervical surgery Hip Goniometric Range of Motion Hip Right Hip ROM WFL No Testing Position Supine Flexion w/Knee Flexed 90 Comments history of right hip posterior KIMMY Knee Goniometric Range of Motion Knee ROM Limitations Knee ROM Limitations Soft Tissue Tightness Comments history of right knee TKA, 110 degrees flexion PT-OP-M Strength Start: 01/20/20 15:13 Freq: Status: Active Protocol: Document 01/20/20 16:00 [facility] (Rec: 01/26/20 19:59 [facility] [email or web address]) Hip Strength Hip Manual Muscle Testing Right Flexion (L2) 2+ Poor+ Extension (S1) 2+ Poor+ Abduction 2+ Poor+ Adduction 2+ Poor+ External Rotation 2+ Poor+ Comments history of right knee and right hip replacement Left Flexion (L2) 3 Fair Extension (S1) 2+ Poor+ Abduction 2 Poor Adduction 3 Fair External Rotation 3 Fair Knee Strength Knee Manual Muscle Testing Left Flexion (S2) 3 Fair Extension (L3) 3 Fair Right Flexion (S2) 2+ Poor+ Extension (L3) 3 Fair PT-OP-Q Treatments Start: 01/20/20 15:13 Freq: Status: Active Protocol: Document 03/01/20 15:21 [facility] (Rec: 03/01/20 16:03 [facility] [id number]) Cardio Equipment Recumbent Elliptical (Biodex) Duration (Minutes) 5 Resistance 3 Seat Position 5 Therapeutic Exercises Sitting Exercises abd Side bilateral Equipment Used L3 Reps/Minutes 20 Marching Side bilateral Equipment Used L3 Reps/Minutes 1x20 seated TKE Sitting Exercise Name LAQ Side bilateral Reps/Minutes x10 Standing Exercises heel raises Side bilateral Reps/Minutes 15 Side bilateral Equipment Used Parallel Bars Reps/Minutes 20 step ups onto 4 step Standing Exercise Name step ups forward onto 4 step Side bilateral Reps/Minutes 2x 5 Comments in parallel bars standing shoulder flexion Standing Exercise Name standing shoulder overhead flexion in parallel bars Side bilateral Reps/Minutes 10 reps Comments CGA with gait belt, pt able to lift both hands but feels off balance sit to stand Standing Exercise Name sit to stand Side bilateral Equipment Used FWW Reps/Minutes x 10 Gait Training Gait Activity Walking Device Used FWW Level of Assistance SBA Distance/Duration [id number], 80ft Comments Cues to keep within walker, spinal extension, look where walking; work on not slouching fwd over walker PT-OP-T Assessment and Plan Start: 01/20/20 15:13 Freq: Status: Active Protocol: Document 03/01/20 15:21 [facility] (Rec: 03/01/20 16:03 [facility] [id number]) Physical Therapy Assessment Goals LE weakness Impairment LE overall weakness with decreased functional mobility Short Term Goal (STG) Haily is tolerating a strengthening program for her LE to improve her mobility STG Duration 4 weeks [facility]ci Goal (LTG) Haily is Independent with a HEP to improve strength and functional mobility. LTG Duration 8 weeks Two Impairment Difficulty with car transfers, requiring Mod A for car transfers [facility]ci Goal (LTG) Haily demonstrated CGA for car transfers LTG Duration 8 weeks One Impairment Since her fall Haily has been using a wheelchair for ambulation only Director Of Content And Programming Goal (LTG) Haily is able to return to using her walker for ambulation in her home. She is able to walk 20-30 feet with her FWW and CGA LTG Duration 8 weeks 1 Impairment Mod assistance for transfers from sit-stand and rolling in bed [facility]ci Goal (LTG) Haily is able to perform sit- stand with CGA and is rolling in bed independently LTG Duration 8 weeks Assessment Summary Assessment Pt was fatigued with exercise but was able to toleate significant amt of standing activity. Pt given HEP to work on at home on top on walking Physical Therapy Plan Frequency and Duration Frequency of Treatment 2x/Week Duration of Treatment 8 Plan of Care Start Date 01/20/20 Plan of Care End Date 03/16/20 Next Visit Focus/Plan Next Note Type Progress Note Next Visit Plan 10th visit PN,continue progressing bed mobility and use of UE, gait and balance training, endurance training, Le strengthening.
--- NOTE | 2020-03-09 15:57 | PT.OTN ---
Current Diagnoses Weakness (03/09/20) Physical Therapy Treatment Note PT-OP-A Visit Information Start: 01/20/20 15:13 Freq: Status: Active Protocol: Document 03/09/20 13:00 [facility] (Rec: 03/09/20 13:00 [facility] [id number]) Out-Patient Physical Therapy Visit Information Visit Information Visit Type Treatment Note Visit Start Time 13:00 Visit Stop Time 13:45 Total Visit Minutes 45 Visit Number 10 Number of STEAM TABLE WORKER Visits 0 PT-OP-B Current Condition Start: 01/20/20 15:13 Freq: Status: Active Protocol: Document 01/20/20 17:46 [facility] (Rec: 01/20/20 17:52 [facility] [id number]) Current Condition History of Current Condition Onset Date 4 months ago Current Complaints progressive weakness, history of falls, decreased gait and balance History of Current Condition Haily is a 84 year old female presenting to PT with her . She took a fall approximately 4 months ago in a posterior direction and was taken to the ER with a laceration on the back of her head. Since that time she has gotten progressively weaker and has been using a wheelchair for most of the time. Her notes she occasionally uses a walker but this is not often. She reports needing assistance with transfers in and out of bed, from chair to wheel chair , and in and out of the car. Her feels she has had so much inactivity in the past 4 months that she has gotten progressively weaker. Past medical history includes right knee and right hip replacement, history of A fib, memory loss, hx of falls, HBP Treatment Goals Patient/Caregiver Goals Treatment goals include overall strengthening to help Haily with more independence with transfers and mobility Prior Functional Status Baseline Function- ADL's Modified Independent Baseline Function- Mobility Modified Independent Current Functional Impairments (Reported) Functional Limitations- ADL's Haily is dependent on her son and for assistance with ADL's Functional Limitations- Mobility/Gait Haily is requiring a wheelchair for mobility. She needs moderate assist with all transfers and gait. PT-OP-C Subjective Start: 01/20/20 15:13 Freq: Status: Active Protocol: Document 03/09/20 13:06 [facility] (Rec: 03/09/20 13:07 [facility] [id number]) OP-PT Subjective Patient Comments Patient Comments Bhumi states today she is trying to do her chair exercises. Her took a fall 2 days ago so he hasn't been able to follow her with the wheel chair when she is walking. PT-OP-G Mobility & Gait Start: 01/20/20 15:13 Freq: Status: Active Protocol: Document 03/09/20 13:08 [facility] (Rec: 03/09/20 13:21 [facility] [id number]) OP Mobility Evaluation Bed Mobility Rolling able to roll in bed on her own Supine to and from Sit Min A supine to sit Transfers Sit to Stand Min A Bed to Chair Transfers Mod A Car Transfers Mod A Floor Transfers Not attempted today Functional Movements Lifting and Carrying unable Squats sit-stand with min A Wheelchair Management Type of Wheelchair manual Assessment Details Haily's has been pushing the wheel chair behind her when she is ambulating with the fww but this week he has not been able to do this because of his fall. PT-OP-J Posture/Palpation/Skin Start: 01/20/20 15:13 Freq: Status: Active Protocol: Document 01/20/20 16:00 [facility] (Rec: 01/26/20 19:59 [facility] [email or web address]) Posture Evaluation Comments Posture Comments pt is in a forward lean with her posture. She is able to sit at the edge of the bed for postural examination. She is able to maintain balance with a forward lean PT-OP-K Range of Motion Start: 01/20/20 15:13 Freq: Status: Active Protocol: Document 01/20/20 16:00 [facility] (Rec: 01/26/20 19:59 [facility] [id number]) Cervical Spine Range of Motion Cervical Spine Active Comments limited cervcial ROM due to history of cervical surgery Hip Goniometric Range of Motion Hip Right Hip ROM WFL No Testing Position Supine Flexion w/Knee Flexed 90 Comments history of right hip posterior KIMMY Knee Goniometric Range of Motion Knee ROM Limitations Knee ROM Limitations Soft Tissue Tightness Comments history of right knee TKA, 110 degrees flexion PT-OP-M Strength Start: 01/20/20 15:13 Freq: Status: Active Protocol: Document 01/20/20 16:00 [facility] (Rec: 01/26/20 19:59 [facility] [id number]) Hip Strength Hip Manual Muscle Testing Right Flexion (L2) 2+ Poor+ Extension (S1) 2+ Poor+ Abduction 2+ Poor+ Adduction 2+ Poor+ External Rotation 2+ Poor+ Comments history of right knee and right hip replacement Left Flexion (L2) 3 Fair Extension (S1) 2+ Poor+ Abduction 2 Poor Adduction 3 Fair External Rotation 3 Fair Knee Strength Knee Manual Muscle Testing Left Flexion (S2) 3 Fair Extension (L3) 3 Fair Right Flexion (S2) 2+ Poor+ Extension (L3) 3 Fair PT-OP-Q Treatments Start: 01/20/20 15:13 Freq: Status: Active Protocol: Document 03/09/20 13:08 [facility] (Rec: 03/09/20 13:21 [facility] [id number]) Cardio Equipment Recumbent Elliptical (BiodZIOPHARM Oncology) Duration (Minutes) 5 Resistance 3 Seat Position 5 Therapeutic Exercises Standing Exercises heel raises Side bilateral Reps/Minutes 15 Marching Side bilateral Equipment Used Parallel Bars Reps/Minutes 20 step ups onto 4 step Standing Exercise Name step ups forward onto 4 step Side bilateral Reps/Minutes 2x 5 Comments in parallel bars standing shoulder flexion Standing Exercise Name standing shoulder overhead flexion in parallel bars Side bilateral Reps/Minutes 10 reps Comments CGA with gait belt, pt able to lift both hands but feels off balance standing scap squeezes Standing Exercise Name standing scap squeezes Side bilateral Reps/Minutes x 10 Comments pt tends to lean forward in stading, cues to activate her middle trapezius sit to stand Standing Exercise Name sit to stand Side bilateral Equipment Used FWW Reps/Minutes x 10 standing toe taps on 6 step Standing Exercise Name in parallel bars Side bilateral Reps/Minutes 2 x 10 reps parallel bars Standing Exercise Name Extension Side bilateral Reps/Minutes x8 Therapeutic Activity Therapeutic Activity Bed Mobility Reps/Minutes 10 min Comments Practicing sit>supine (SBA), Supine>SL (Min A) B, SL> sitting EOB (Min A) Gait Training Gait Activity Walking Device Used FWW Level of Assistance SBA Distance/Duration [id number], 100 ft Comments Cues to keep within walker, spinal extension, look where walking; work on not slouching fwd over walker PT-OP-T Assessment and Plan Start: 01/20/20 15:13 Freq: Status: Active Protocol: Document 03/09/20 13:36 [facility] (Rec: 03/09/20 13:46 [facility] [id number]) Physical Therapy Assessment Goals LE weakness Impairment LE overall weakness with decreased functional mobility Short Term Goal (STG) Haily is tolerating a strengthening program for her LE to improve her mobility GOOD PROGRESS STG Duration 4 weeks Water Softener Installer Goal (LTG) Haily is Independent with a HEP to improve strength and functional mobility. LTG Duration 8 weeks Two Impairment Difficulty with car transfers, requiring Mod A for car transfers Water Softener Installer Goal (LTG) Haily demonstrated CGA for car transfers Good progress LTG Duration 8 weeks One Impairment Since her fall Haily has been using a wheelchair for ambulation only Water Softener Installer Goal (LTG) Haily is able to return to using her walker for ambulation in her home. She is able to walk 20-30 feet with her FWW and CGA Bhumi was able to ambulate 100 feet today in the clinic with fww LTG Duration 8 weeks 1 Impairment Mod assistance for transfers from sit-stand and rolling in bed Water Softener Installer Goal (LTG) Haily is able to perform sit- stand with CGA and is rolling in bed independently good progress LTG Duration 8 weeks Assessment Summary Assessment Bhumi is showing progress with improving her tolerance for gait and therapeutic activities in the clinic. She was able to increase her walking tolerance today to 100 feet with the fww. Sit to stand transfers are CGA now. She would benefit from continued PT Physical Therapy Plan Frequency and Duration Frequency of Treatment 2x/Week Duration of Treatment 8 weeks Plan of Care Start Date 03/09/20 Plan of Care End Date 04/27/20
--- NOTE | 2020-03-09 15:58 | PT.OPPOC ---
Physical, Occupational & Speech Therapy At [facility] Current Diagnoses Weakness (03/09/20) Visit Care Team Role Provider Type Gabby Saavedra MD Attending Provider Physician Family Provider Primary Care Provider Referring Provider Specialty: Family Practice Address: [address] [place] [address], [facility] [place], [address] Email: [email or web address] Plan Of Care PT-OP-T Assessment and Plan Start: 01/20/20 15:13 Freq: Status: Active Protocol: Document 03/09/20 13:36 [facility] (Rec: 03/09/20 13:46 [facility] [id number]) Physical Therapy Assessment Goals LE weakness Impairment LE overall weakness with decreased functional mobility Short Term Goal (STG) Haily is tolerating a strengthening program for her LE to improve her mobility GOOD PROGRESS STG Duration 4 weeks Administrative Resident Goal (LTG) Haily is Independent with a HEP to improve strength and functional mobility. LTG Duration 8 weeks Two Impairment Difficulty with car transfers, requiring Mod A for car transfers Administrative Resident Goal (LTG) Haily demonstrated CGA for car transfers Good progress LTG Duration 8 weeks One Impairment Since her fall Haily has been using a wheelchair for ambulation only Administrative Resident Goal (LTG) Haily is able to return to using her walker for ambulation in her home. She is able to walk 20-30 feet with her FWW and CGA Bhumi was able to ambulate 100 feet today in the clinic with fww LTG Duration 8 weeks 1 Impairment Mod assistance for transfers from sit-stand and rolling in bed Fpc Goal (LTG) Haily is able to perform sit- stand with CGA and is rolling in bed independently good progress LTG Duration 8 weeks Assessment Summary Assessment Bhumi is showing progress with improving her tolerance for gait and therapeutic activities in the clinic. She was able to increase her walking tolerance today to 100 feet with the fww. Sit to stand transfers are CGA now. She would benefit from continued PT Physical Therapy Plan Frequency and Duration Frequency of Treatment 2x/Week Duration of Treatment 8 weeks Plan of Care Start Date 03/09/20 Plan of Care End Date 04/27/20 Plan of Care Dates Plan of Care Start Date 03/09/20 Plan of Care End Date 04/27/20 Electronically Signed by: Lyssa Pretty, PT 03/09/20 1558 Please Sign and Return: I have reviewed this Plan of Care and certify that the skilled therapy services above are required to meet the patient?s needs. Physician Signature Date Printed Name and Credentials Clinical Instructor Signature Printed Name and Credentials
--- NOTE | 2020-03-17 15:15 | PT.OTN ---
Current Diagnoses Weakness (03/17/20) Physical Therapy Treatment Note PT-OP-A Visit Information Start: 01/20/20 15:13 Freq: Status: Active Protocol: Document 03/17/20 17:13 [facility] (Rec: 03/17/20 17:29 [facility] [email or web address]) Out-Patient Physical Therapy Visit Information Visit Information Visit Type Treatment Note Visit Start Time 14:35 Visit Stop Time 15:14 Total Visit Minutes 39 Visit Number 11 Number of PNEUMATIC RIVETER Visits 1 PT-OP-B Current Condition Start: 01/20/20 15:13 Freq: Status: Active Protocol: Document 01/20/20 17:46 [facility] (Rec: 01/20/20 17:52 [facility] [email or web address]) Current Condition History of Current Condition Onset Date 4 months ago Current Complaints progressive weakness, history of falls, decreased gait and balance History of Current Condition Haily is a 84 year old female presenting to PT with her . She took a fall approximately 4 months ago in a posterior direction and was taken to the ER with a laceration on the back of her head. Since that time she has gotten progressively weaker and has been using a wheelchair for most of the time. Her notes she occasionally uses a walker but this is not often. She reports needing assistance with transfers in and out of bed, from chair to wheel chair , and in and out of the car. Her feels she has had so much inactivity in the past 4 months that she has gotten progressively weaker. Past medical history includes right knee and right hip replacement, history of A fib, memory loss, hx of falls, HBP Treatment Goals Patient/Caregiver Goals Treatment goals include overall strengthening to help Haily with more independence with transfers and mobility Prior Functional Status Baseline Function- ADL's Modified Independent Baseline Function- Mobility Modified Independent Current Functional Impairments (Reported) Functional Limitations- ADL's Haily is dependent on her son and for assistance with ADL's Functional Limitations- Mobility/Gait Haily is requiring a wheelchair for mobility. She needs moderate assist with all transfers and gait. PT-OP-C Subjective Start: 01/20/20 15:13 Freq: Status: Active Protocol: Document 03/17/20 17:13 [facility] (Rec: 03/17/20 17:29 [facility] [email or web address]) OP-PT Subjective Patient Comments Patient Comments Pt says she has been doing some exercises in her chair and she reaches for things without her grabber now PT-OP-G Mobility & Gait Start: 01/20/20 15:13 Freq: Status: Active Protocol: Document 03/09/20 13:08 [facility] (Rec: 03/09/20 13:21 [facility] [id number]) OP Mobility Evaluation Bed Mobility Rolling able to roll in bed on her own Supine to and from Sit Min A supine to sit Transfers Sit to Stand Min A Bed to Chair Transfers Mod A Car Transfers Mod A Floor Transfers Not attempted today Functional Movements Lifting and Carrying unable Squats sit-stand with min A Wheelchair Management Type of Wheelchair manual Assessment Details Haily's has been pushing the wheel chair behind her when she is ambulating with the fww but this week he has not been able to do this because of his fall. PT-OP-J Posture/Palpation/Skin Start: 01/20/20 15:13 Freq: Status: Active Protocol: Document 01/20/20 16:00 [facility] (Rec: 01/26/20 19:59 [facility] [email or web address]) Posture Evaluation Comments Posture Comments pt is in a forward lean with her posture. She is able to sit at the edge of the bed for postural examination. She is able to maintain balance with a forward lean PT-OP-K Range of Motion Start: 01/20/20 15:13 Freq: Status: Active Protocol: Document 01/20/20 16:00 [facility] (Rec: 01/26/20 19:59 [facility] [id number]) Cervical Spine Range of Motion Cervical Spine Active Comments limited cervcial ROM due to history of cervical surgery Hip Goniometric Range of Motion Hip Right Hip ROM WFL No Testing Position Supine Flexion w/Knee Flexed 90 Comments history of right hip posterior KIMMY Knee Goniometric Range of Motion Knee ROM Limitations Knee ROM Limitations Soft Tissue Tightness Comments history of right knee TKA, 110 degrees flexion PT-OP-M Strength Start: 01/20/20 15:13 Freq: Status: Active Protocol: Document 01/20/20 16:00 [facility] (Rec: 01/26/20 19:59 [facility] [email or web address]) Hip Strength Hip Manual Muscle Testing Right Flexion (L2) 2+ Poor+ Extension (S1) 2+ Poor+ Abduction 2+ Poor+ Adduction 2+ Poor+ External Rotation 2+ Poor+ Comments history of right knee and right hip replacement Left Flexion (L2) 3 Fair Extension (S1) 2+ Poor+ Abduction 2 Poor Adduction 3 Fair External Rotation 3 Fair Knee Strength Knee Manual Muscle Testing Left Flexion (S2) 3 Fair Extension (L3) 3 Fair Right Flexion (S2) 2+ Poor+ Extension (L3) 3 Fair PT-OP-Q Treatments Start: 01/20/20 15:13 Freq: Status: Active Protocol: Document 03/17/20 17:13 [facility] (Rec: 03/17/20 17:29 [facility] [email or web address]) Therapeutic Exercises Sitting Exercises Marching Side bilateral Reps/Minutes x20 seated TKE Sitting Exercise Name LAQ Side bilateral Reps/Minutes x10 Standing Exercises Marching Side bilateral Equipment Used FWW Reps/Minutes 20 sit to stand Standing Exercise Name sit to stand Side bilateral Equipment Used FWW Reps/Minutes x 5 Comments cues to not hold walker Therapeutic Activity Therapeutic Activity Bed Mobility Reps/Minutes 10 min Comments Practicing sit>supine (SBA), Supine>SL (Min A) B, SL> sitting EOB (Min A) Gait Training Gait Activity Walking Device Used FWW Level of Assistance SBA Distance/Duration [id number] Comments 1. walking around gym with FWW forwards/backwards 2. walking with one hand on counter 3. walking and picking up cones from floor Neuro Re-Education Treatment Balance Activities Toe Tap Details toe tap on cones Comments 3 cones placed one infront, one laterally, and one behind. Working on gently tapping cones without knocking them over Coordination Activities Picking up Details seated picking up cones Reps/Duration x5 cones Comments reaching out of DARIELA to get cones PT-OP-T Assessment and Plan Start: 01/20/20 15:13 Freq: Status: Active Protocol: Document 03/17/20 17:13 [facility] (Rec: 03/17/20 17:29 [facility] [email or web address]) Physical Therapy Assessment Goals LE weakness Impairment LE overall weakness with decreased functional mobility Short Term Goal (STG) Haily is tolerating a strengthening program for her LE to improve her mobility GOOD PROGRESS STG Duration 4 weeks Penitentiary Goal (LTG) Haily is Independent with a HEP to improve strength and functional mobility. LTG Duration 8 weeks Two Impairment Difficulty with car transfers, requiring Mod A for car transfers Penitentiary Goal (LTG) Haily demonstrated CGA for car transfers Good progress LTG Duration 8 weeks One Impairment Since her fall Haily has been using a wheelchair for ambulation only Penitentiary Goal (LTG) Haily is able to return to using her walker for ambulation in her home. She is able to walk 20-30 feet with her FWW and CGA Bhumi was able to ambulate 100 feet today in the clinic with fww LTG Duration 8 weeks 1 Impairment Mod assistance for transfers from sit-stand and rolling in bed Educational Program Director Goal (LTG) Haily is able to perform sit- stand with CGA and is rolling in bed independently good progress LTG Duration 8 weeks Assessment Summary Assessment Bhumi has improved her endurance since first visit. She is able to walk back to therapy session with FWW instead of being pushed in W/C . Pt still struggles with bed mobility due to fear, but is able to sit and stand, reaching outside of DARIELA for cones. She can walk several laps around the gym with seated rest breaks between laps. Pt did struggle with tapping cones during balance activity, tending to panic over the possibility of losing her balance and kick them over instead of tap. Bhumi's fear of falling is her biggest block with therapy, but if she feels secure with gait belt and is able to hold onto things she does well. Physical Therapy Plan Frequency and Duration Frequency of Treatment 2x/Week Duration of Treatment 8 weeks Plan of Care Start Date 03/09/20 Plan of Care End Date 04/27/20 Therapeutic Interventions Therapeutic Interventions Balance Training,Gait Training ,Home Exercise Program, Neuromuscular Re-education, Patient/Caregiver Education, Self-Care/Home Management, Therapeutic Exercises Next Visit Focus/Plan Next Note Type Treatment Note Next Visit Plan Continue progressing bed mobility and use of UE, gait and balance training, endurance training, LE strengthening.
--- NOTE | 2020-04-07 13:59 | PT-OP ANOTE ---
Pt showed up for session and reported runny nose still from cold she is getting over. Discussed with pt, and son that she can return when she is back to baseline of her typical runny nose vs inc symptoms and to monitor her.
--- NOTE | 2020-04-12 13:41 | PT.OTN ---
Current Diagnoses Weakness (04/12/20) Physical Therapy Treatment Note PT-OP-A Visit Information Start: 01/20/20 15:13 Freq: Status: Active Protocol: Document 04/12/20 12:56 [facility] (Rec: 04/12/20 13:37 [facility] [id number]) Out-Patient Physical Therapy Visit Information Visit Information Visit Type Treatment Note Visit Start Time 13:00 Visit Stop Time 13:41 Total Visit Minutes 41 Visit Number 12 Number of SEAT COVERER Visits 0 PT-OP-B Current Condition Start: 01/20/20 15:13 Freq: Status: Active Protocol: Document 01/20/20 17:46 [facility] (Rec: 01/20/20 17:52 [facility] [id number]) Current Condition History of Current Condition Onset Date 4 months ago Current Complaints progressive weakness, history of falls, decreased gait and balance History of Current Condition Haily is a 84 year old female presenting to PT with her . She took a fall approximately 4 months ago in a posterior direction and was taken to the ER with a laceration on the back of her head. Since that time she has gotten progressively weaker and has been using a wheelchair for most of the time. Her notes she occasionally uses a walker but this is not often. She reports needing assistance with transfers in and out of bed, from chair to wheel chair , and in and out of the car. Her feels she has had so much inactivity in the past 4 months that she has gotten progressively weaker. Past medical history includes right knee and right hip replacement, history of A fib, memory loss, hx of falls, HBP Treatment Goals Patient/Caregiver Goals Treatment goals include overall strengthening to help Haily with more independence with transfers and mobility Prior Functional Status Baseline Function- ADL's Modified Independent Baseline Function- Mobility Modified Independent Current Functional Impairments (Reported) Functional Limitations- ADL's Haily is dependent on her son and for assistance with ADL's Functional Limitations- Mobility/Gait Haily is requiring a wheelchair for mobility. She needs moderate assist with all transfers and gait. PT-OP-C Subjective Start: 01/20/20 15:13 Freq: Status: Active Protocol: Document 04/12/20 12:56 [facility] (Rec: 04/12/20 13:37 [facility] [id number]) OP-PT Subjective Patient Comments Patient Comments Pt reports she has trouble sleeping d/t worrying about her 's health. reports getting n/out of bed indep Patient Reported Progress Improving PT-OP-G Mobility & Gait Start: 01/20/20 15:13 Freq: Status: Active Protocol: Document 03/09/20 13:08 [facility] (Rec: 03/09/20 13:21 [facility] [id number]) OP Mobility Evaluation Bed Mobility Rolling able to roll in bed on her own Supine to and from Sit Min A supine to sit Transfers Sit to Stand Min A Bed to Chair Transfers Mod A Car Transfers Mod A Floor Transfers Not attempted today Functional Movements Lifting and Carrying unable Squats sit-stand with min A Wheelchair Management Type of Wheelchair manual Assessment Details Haily's has been pushing the wheel chair behind her when she is ambulating with the fww but this week he has not been able to do this because of his fall. PT-OP-J Posture/Palpation/Skin Start: 01/20/20 15:13 Freq: Status: Active Protocol: Document 01/20/20 16:00 [facility] (Rec: 01/26/20 19:59 [facility] [email or web address]) Posture Evaluation Comments Posture Comments pt is in a forward lean with her posture. She is able to sit at the edge of the bed for postural examination. She is able to maintain balance with a forward lean PT-OP-K Range of Motion Start: 01/20/20 15:13 Freq: Status: Active Protocol: Document 01/20/20 16:00 [facility] (Rec: 01/26/20 19:59 [facility] [email or web address]) Cervical Spine Range of Motion Cervical Spine Active Comments limited cervcial ROM due to history of cervical surgery Hip Goniometric Range of Motion Hip Right Hip ROM WFL No Testing Position Supine Flexion w/Knee Flexed 90 Comments history of right hip posterior KIMMY Knee Goniometric Range of Motion Knee ROM Limitations Knee ROM Limitations Soft Tissue Tightness Comments history of right knee TKA, 110 degrees flexion PT-OP-M Strength Start: 01/20/20 15:13 Freq: Status: Active Protocol: Document 01/20/20 16:00 [facility] (Rec: 01/26/20 19:59 [facility] [id number]) Hip Strength Hip Manual Muscle Testing Right Flexion (L2) 2+ Poor+ Extension (S1) 2+ Poor+ Abduction 2+ Poor+ Adduction 2+ Poor+ External Rotation 2+ Poor+ Comments history of right knee and right hip replacement Left Flexion (L2) 3 Fair Extension (S1) 2+ Poor+ Abduction 2 Poor Adduction 3 Fair External Rotation 3 Fair Knee Strength Knee Manual Muscle Testing Left Flexion (S2) 3 Fair Extension (L3) 3 Fair Right Flexion (S2) 2+ Poor+ Extension (L3) 3 Fair PT-OP-Q Treatments Start: 01/20/20 15:13 Freq: Status: Active Protocol: Document 04/12/20 12:56 [facility] (Rec: 04/12/20 13:37 [facility] [id number]) Cardio Equipment Recumbent Elliptical (Biodex) Duration (Minutes) 5 Resistance 3 Seat Position 5 Therapeutic Exercises Standing Exercises ext Standing Exercise Name hip Side bilateral Reps/Minutes 12 heel raises Side bilateral Reps/Minutes 15 Marching Side bilateral Equipment Used w/1 rail Reps/Minutes 2x10 standing shoulder flexion Standing Exercise Name standing shoulder overhead flexion in parallel bars Side bilateral Reps/Minutes 10 reps Comments CGA with gait belt, pt able to lift both hands but feels off balance sit to stand Standing Exercise Name sit to stand Side bilateral Equipment Used FWW Reps/Minutes x 10 Comments cues to not hold walker parallel bars Standing Exercise Name sidesteps Side bilateral Reps/Minutes 2x10ft Gait Training Gait Activity Walking Device Used FWW Level of Assistance SBA Distance/Duration [id number], 75ftx2 Comments work on posture with walker and keeping close to walker Neuro Re-Education Treatment Balance Activities firm Details WBOS & NBOS Comments arms across chest Toe Tap Details ontop 6 in step Reps/Duration 10 B Comments 1 rail PT-OP-T Assessment and Plan Start: 01/20/20 15:13 Freq: Status: Active Protocol: Document 04/12/20 12:56 [facility] (Rec: 04/12/20 13:37 [facility] [id number]) Physical Therapy Assessment Goals LE weakness Impairment LE overall weakness with decreased functional mobility Short Term Goal (STG) Haily is tolerating a strengthening program for her LE to improve her mobility GOOD PROGRESS STG Duration 4 weeks [facility] Goal (LTG) Haily is Independent with a HEP to improve strength and functional mobility. LTG Duration 8 weeks Two Impairment Difficulty with car transfers, requiring Mod A for car transfers Physiologist Goal (LTG) Haily demonstrated CGA for car transfers Good progress LTG Duration 8 weeks One Impairment Since her fall Haily has been using a wheelchair for ambulation only Physiologist Goal (LTG) Haily is able to return to using her walker for ambulation in her home. She is able to walk 20-30 feet with her FWW and CGA Bhumi was able to ambulate 100 feet today in the clinic with fww LTG Duration 8 weeks 1 Impairment Mod assistance for transfers from sit-stand and rolling in bed Physiologist Goal (LTG) Haily is able to perform sit- stand with CGA and is rolling in bed independently good progress LTG Duration 8 weeks Assessment Summary Assessment pt ll with exercises today & showed inc tolerance to activity. she does fatigue with activity and needs cueing for posture during exercise. Less cueing needed for walking today Physical Therapy Plan Frequency and Duration Frequency of Treatment 2x/Week Duration of Treatment 8 weeks Plan of Care Start Date 03/09/20 Plan of Care End Date 04/27/20 Next Visit Focus/Plan Next Note Type Treatment Note Next Visit Plan Continue progressing bed mobility and use of UE, gait and balance training, endurance training, LE strengthening.
--- NOTE | 2020-04-22 16:35 | PT.OTN ---
Current Diagnoses Weakness (04/22/20) Physical Therapy Treatment Note PT-OP-A Visit Information Start: 01/20/20 15:13 Freq: Status: Active Protocol: Document 04/22/20 14:26 [facility] (Rec: 04/22/20 16:35 [facility] [id number]) Out-Patient Physical Therapy Visit Information Visit Information Visit Type Treatment Note Visit Start Time 14:31 Visit Stop Time 15:15 Total Visit Minutes 44 Visit Number 13 Number of PLANT FACILITIES TECHNICIAN Visits 0 PT-OP-B Current Condition Start: 01/20/20 15:13 Freq: Status: Active Protocol: Document 01/20/20 17:46 [facility] (Rec: 01/20/20 17:52 [facility] [email or web address]) Current Condition History of Current Condition Onset Date 4 months ago Current Complaints progressive weakness, history of falls, decreased gait and balance History of Current Condition Haily is a 84 year old female presenting to PT with her . She took a fall approximately 4 months ago in a posterior direction and was taken to the ER with a laceration on the back of her head. Since that time she has gotten progressively weaker and has been using a wheelchair for most of the time. Her notes she occasionally uses a walker but this is not often. She reports needing assistance with transfers in and out of bed, from chair to wheel chair , and in and out of the car. Her feels she has had so much inactivity in the past 4 months that she has gotten progressively weaker. Past medical history includes right knee and right hip replacement, history of A fib, memory loss, hx of falls, HBP Treatment Goals Patient/Caregiver Goals Treatment goals include overall strengthening to help Haily with more independence with transfers and mobility Prior Functional Status Baseline Function- ADL's Modified Independent Baseline Function- Mobility Modified Independent Current Functional Impairments (Reported) Functional Limitations- ADL's Haily is dependent on her son and for assistance with ADL's Functional Limitations- Mobility/Gait Haily is requiring a wheelchair for mobility. She needs moderate assist with all transfers and gait. PT-OP-C Subjective Start: 01/20/20 15:13 Freq: Status: Active Protocol: Document 04/22/20 14:26 [facility] (Rec: 04/22/20 16:35 [facility] [id number]) OP-PT Subjective Patient Comments Patient Comments Im worrying about my because of his health issue and pain. Im getting around in the house okay so far PT-OP-G Mobility & Gait Start: 01/20/20 15:13 Freq: Status: Active Protocol: Document 03/09/20 13:08 [facility] (Rec: 03/09/20 13:21 [facility] [id number]) OP Mobility Evaluation Bed Mobility Rolling able to roll in bed on her own Supine to and from Sit Min A supine to sit Transfers Sit to Stand Min A Bed to Chair Transfers Mod A Car Transfers Mod A Floor Transfers Not attempted today Functional Movements Lifting and Carrying unable Squats sit-stand with min A Wheelchair Management Type of Wheelchair manual Assessment Details Haily's has been pushing the wheel chair behind her when she is ambulating with the fww but this week he has not been able to do this because of his fall. PT-OP-J Posture/Palpation/Skin Start: 01/20/20 15:13 Freq: Status: Active Protocol: Document 01/20/20 16:00 [facility] (Rec: 01/26/20 19:59 [facility] [email or web address]) Posture Evaluation Comments Posture Comments pt is in a forward lean with her posture. She is able to sit at the edge of the bed for postural examination. She is able to maintain balance with a forward lean PT-OP-K Range of Motion Start: 01/20/20 15:13 Freq: Status: Active Protocol: Document 01/20/20 16:00 [facility] (Rec: 01/26/20 19:59 [facility] [id number]) Cervical Spine Range of Motion Cervical Spine Active Comments limited cervcial ROM due to history of cervical surgery Hip Goniometric Range of Motion Hip Right Hip ROM WFL No Testing Position Supine Flexion w/Knee Flexed 90 Comments history of right hip posterior KIMMY Knee Goniometric Range of Motion Knee ROM Limitations Knee ROM Limitations Soft Tissue Tightness Comments history of right knee TKA, 110 degrees flexion PT-OP-M Strength Start: 01/20/20 15:13 Freq: Status: Active Protocol: Document 01/20/20 16:00 [facility] (Rec: 01/26/20 19:59 [facility] [id number]) Hip Strength Hip Manual Muscle Testing Right Flexion (L2) 2+ Poor+ Extension (S1) 2+ Poor+ Abduction 2+ Poor+ Adduction 2+ Poor+ External Rotation 2+ Poor+ Comments history of right knee and right hip replacement Left Flexion (L2) 3 Fair Extension (S1) 2+ Poor+ Abduction 2 Poor Adduction 3 Fair External Rotation 3 Fair Knee Strength Knee Manual Muscle Testing Left Flexion (S2) 3 Fair Extension (L3) 3 Fair Right Flexion (S2) 2+ Poor+ Extension (L3) 3 Fair PT-OP-Q Treatments Start: 01/20/20 15:13 Freq: Status: Active Protocol: Document 04/22/20 14:26 [facility] (Rec: 04/22/20 16:35 [id number]) Cardio Equipment Recumbent Stepper (Sci-Fit) Duration (Minutes) 6 Resistance 1 Therapeutic Exercises Standing Exercises heel raises Side bilateral Reps/Minutes 15 Marching Side bilateral Equipment Used w/1 rail Reps/Minutes 2x10 standing shoulder flexion Standing Exercise Name standing shoulder overhead flexion in parallel bars Side bilateral Reps/Minutes 10 reps Comments CGA with gait belt, pt able to lift both hands but feels off balance sit to stand Standing Exercise Name sit to stand Side bilateral Equipment Used FWW Reps/Minutes x 10 Comments cues to not hold walker parallel bars Standing Exercise Name sidesteps Side bilateral Reps/Minutes 2x10ft Gait Training Gait Activity Walking Device Used FWW Level of Assistance SBA Distance/Duration [id number], 75ftx2 Comments work on posture with walker and keeping close to walker Neuro Re-Education Treatment Balance Activities uneven surface Surface blue foam Comments static stance 5 sec x 5 Toe Tap Details ontop 6 in step Reps/Duration 10 B Comments 1 rail PT-OP-T Assessment and Plan Start: 01/20/20 15:13 Freq: Status: Active Protocol: Document 04/22/20 14:26 (Rec: 04/22/20 16:35 [id number]) Physical Therapy Assessment Goals LE weakness Impairment LE overall weakness with decreased functional mobility Short Term Goal (STG) Haily is tolerating a strengthening program for her LE to improve her mobility GOOD PROGRESS STG Duration 4 weeks [employer]ating Tank Operator Apprentice Goal (LTG) Haily is Independent with a HEP to improve strength and functional mobility. LTG Duration 8 weeks Two Impairment Difficulty with car transfers, requiring Mod A for car transfers Plating Tank Operator Apprentice Goal (LTG) Haily demonstrated CGA for car transfers Good progress LTG Duration 8 weeks One Impairment Since her fall Haily has been using a wheelchair for ambulation only Plating Tank Operator Apprentice Goal (LTG) Haily is able to return to using her walker for ambulation in her home. She is able to walk 20-30 feet with her FWW and CGA Bhumi was able to ambulate 100 feet today in the clinic with fww LTG Duration 8 weeks 1 Impairment Mod assistance for transfers from sit-stand and rolling in bed Fpc Goal (LTG) Haily is able to perform sit- stand with CGA and is rolling in bed independently good progress LTG Duration 8 weeks Assessment Summary Assessment Followed last visit tx plan and pt harvey session well. Although she c/o fatigue during the entire session, she was able to complete all prescribed therex and gait training. Physical Therapy Plan Frequency and Duration Frequency of Treatment 2x/Week Duration of Treatment 8 weeks Plan of Care Start Date 03/09/20 Plan of Care End Date 04/27/20 Therapeutic Interventions Therapeutic Interventions Balance Training,Gait Training ,Home Exercise Program, Neuromuscular Re-education, Patient/Caregiver Education, Self-Care/Home Management, Therapeutic Exercises Next Visit Focus/Plan Next Note Type Treatment Note Next Visit Plan Continue progressing bed mobility and use of UE, gait and balance training, endurance training, LE strengthening.
--- NOTE | 2020-09-30 15:03 | PT.OPDS ---
Current Diagnoses Weakness (04/22/20) Visit Care Team Role Provider Type Gabby Saavedra MD Attending Provider Physician Family Provider Primary Care Provider Referring Provider Specialty: [facility] Address: [address] [place] [address], [facility] [place], [place], [facility] Email: [email or web address] Visit Number Visit Number 13 Discharge Summary PT-OP-B Current Condition Start: 01/20/20 15:13 Freq: Status: Active Protocol: Document 01/20/20 17:46 [facility] (Rec: 01/20/20 17:52 [facility] [id number]) Current Condition History of Current Condition Onset Date 4 months ago Current Complaints progressive weakness, history of falls, decreased gait and balance History of Current Condition Haily is a 84 year old female presenting to PT with her . She took a fall approximately 4 months ago in a posterior direction and was taken to the ER with a laceration on the back of her head. Since that time she has gotten progressively weaker and has been using a wheelchair for most of the time. Her notes she occasionally uses a walker but this is not often. She reports needing assistance with transfers in and out of bed, from chair to wheel chair , and in and out of the car. Her feels she has had so much inactivity in the past 4 months that she has gotten progressively weaker. Past medical history includes right knee and right hip replacement, history of A fib, memory loss, hx of falls, HBP Treatment Goals Patient/Caregiver Goals Treatment goals include overall strengthening to help Haily with more independence with transfers and mobility Prior Functional Status Baseline Function- ADL's Modified Independent Baseline Function- Mobility Modified Independent Current Functional Impairments (Reported) Functional Limitations- ADL's Haily is dependent on her son and for assistance with ADL's Functional Limitations- Mobility/Gait Haily is requiring a wheelchair for mobility. She needs moderate assist with all transfers and gait. PT-OP-C Subjective Start: 01/20/20 15:13 Freq: Status: Active Protocol: Document 04/22/20 14:26 [facility] (Rec: 04/22/20 16:35 [facility] [id number]) OP-PT Subjective Patient Comments Patient Comments Im worrying about my because of his health issue and pain. Im getting around in the house okay so far PT-OP-G Mobility & Gait Start: 01/20/20 15:13 Freq: Status: Active Protocol: Document 03/09/20 13:08 [facility] (Rec: 03/09/20 13:21 [facility] [id number]) OP Mobility Evaluation Bed Mobility Rolling able to roll in bed on her own Supine to and from Sit Min A supine to sit Transfers Sit to Stand Min A Bed to Chair Transfers Mod A Car Transfers Mod A Floor Transfers Not attempted today Functional Movements Lifting and Carrying unable Squats sit-stand with min A Wheelchair Management Type of Wheelchair manual Assessment Details Haily's has been pushing the wheel chair behind her when she is ambulating with the fww but this week he has not been able to do this because of his fall. PT-OP-J Posture/Palpation/Skin Start: 01/20/20 15:13 Freq: Status: Active Protocol: Document 01/20/20 16:00 [facility] (Rec: 01/26/20 19:59 [facility] [id number]) Posture Evaluation Comments Posture Comments pt is in a forward lean with her posture. She is able to sit at the edge of the bed for postural examination. She is able to maintain balance with a forward lean PT-OP-K Range of Motion Start: 01/20/20 15:13 Freq: Status: Active Protocol: Document 01/20/20 16:00 [facility] (Rec: 01/26/20 19:59 [facility] [id number]) Cervical Spine Range of Motion Cervical Spine Active Comments limited cervcial ROM due to history of cervical surgery Hip Goniometric Range of Motion Hip Right Hip ROM WFL No Testing Position Supine Flexion w/Knee Flexed 90 Comments history of right hip posterior KIMMY Knee Goniometric Range of Motion Knee ROM Limitations Knee ROM Limitations Soft Tissue Tightness Comments history of right knee TKA, 110 degrees flexion PT-OP-M Strength Start: 01/20/20 15:13 Freq: Status: Active Protocol: Document 01/20/20 16:00 [facility] (Rec: 01/26/20 19:59 [facility] [email or web address]) Hip Strength Hip Manual Muscle Testing Right Flexion (L2) 2+ Poor+ Extension (S1) 2+ Poor+ Abduction 2+ Poor+ Adduction 2+ Poor+ External Rotation 2+ Poor+ Comments history of right knee and right hip replacement Left Flexion (L2) 3 Fair Extension (S1) 2+ Poor+ Abduction 2 Poor Adduction 3 Fair External Rotation 3 Fair Knee Strength Knee Manual Muscle Testing Left Flexion (S2) 3 Fair Extension (L3) 3 Fair Right Flexion (S2) 2+ Poor+ Extension (L3) 3 Fair PT-OP-T Assessment and Plan Start: 01/20/20 15:13 Freq: Status: Active Protocol: Document 09/30/20 15:02 [facility] (Rec: 09/30/20 15:03 [facility] [id number]) Physical Therapy Assessment Assessment Summary Assessment pt has improved her endurance since her first visit and has shown improvements with her tolerance for activity. She has not been seen since her last visit 04/22/20. She will be discharged at this time. Physical Therapy Plan Discharge Physical Therapy Discharge Reasons No Longer Attending PT
== END 2020-04-22 14:45 ==
LOC: PHYS 14:30
PROVIDERS: Family Provider Student in an Organized Health Care Education/Training Program; PCP Student in an Organized Health Care Education/Training Program; Referring Provider Student in an Organized Health Care Education/Training Program; Visit Provider Student in an Organized Health Care Education/Training Program
DX: R53.1 Weakness (principal)
CPT/HCPCS: 97110; 97112; 97116; 97161; 97530

== ENCOUNTER → 2020-05-04 13:58 | Outpatient (ROUT) | payer MEDICARE, OTHER, SELFPAY ==
[2020-05-04 15:20] LABS: INR 3.7 (0.9-1.3); Prothrombin Time 42.8 SECONDS (10.1-12.7)
== END ==
PROVIDERS: Family Provider Student in an Organized Health Care Education/Training Program; PCP Student in an Organized Health Care Education/Training Program; Visit Provider Student in an Organized Health Care Education/Training Program
DX: Z79.01 Long term (current) use of anticoagulants (principal)
CPT/HCPCS: 85610

== ENCOUNTER → 2020-05-18 15:22 | Outpatient (ROUT) | payer MEDICARE, OTHER, SELFPAY ==
[2020-05-18 15:33] LABS: INR 2.7 (0.9-1.3); Prothrombin Time 31.5 SECONDS (10.1-12.7)
== END ==
PROVIDERS: Family Provider Student in an Organized Health Care Education/Training Program; PCP Student in an Organized Health Care Education/Training Program; Visit Provider Student in an Organized Health Care Education/Training Program
DX: Z79.01 Long term (current) use of anticoagulants (principal)
CPT/HCPCS: 85610

== ENCOUNTER → 2020-06-10 13:49 | Outpatient (ROUT) | payer MEDICARE, OTHER, SELFPAY ==
[2020-06-10 14:11] LABS: INR 2.7 (0.9-1.3); Prothrombin Time 30.5 SECONDS (10.1-12.7)
== END ==
PROVIDERS: Family Provider Student in an Organized Health Care Education/Training Program; PCP Student in an Organized Health Care Education/Training Program; Visit Provider Student in an Organized Health Care Education/Training Program
DX: Z79.01 Long term (current) use of anticoagulants (principal)
CPT/HCPCS: 85610

== ENCOUNTER → 2020-07-01 13:49 | Outpatient (ROUT) | payer MEDICARE, OTHER, SELFPAY ==
[2020-07-01 14:01] LABS: INR 2.8 (0.9-1.3); Prothrombin Time 32.2 SECONDS (10.1-12.7)
== END ==
PROVIDERS: Family Provider Student in an Organized Health Care Education/Training Program; PCP Student in an Organized Health Care Education/Training Program; Visit Provider Student in an Organized Health Care Education/Training Program
DX: Z79.01 Long term (current) use of anticoagulants (principal)
CPT/HCPCS: 85610

== ENCOUNTER → 2020-07-15 13:58 | Outpatient (ROUT) | payer MEDICARE, OTHER, SELFPAY ==
[2020-07-15 14:14] LABS: INR 2.9 (0.9-1.3); Prothrombin Time 32.5 SECONDS (10.1-12.7)
== END ==
PROVIDERS: Family Provider Student in an Organized Health Care Education/Training Program; PCP Student in an Organized Health Care Education/Training Program; Visit Provider Student in an Organized Health Care Education/Training Program
DX: Z79.01 Long term (current) use of anticoagulants (principal)
CPT/HCPCS: 85610

== ENCOUNTER → 2020-08-02 15:29 | Outpatient (ROUT) | payer MEDICARE, OTHER, SELFPAY ==
[2020-08-02 15:52] LABS: INR 2.8 (0.9-1.3); Prothrombin Time 32.1 SECONDS (10.1-12.7)
== END ==
PROVIDERS: Family Provider Student in an Organized Health Care Education/Training Program; PCP Student in an Organized Health Care Education/Training Program; Visit Provider Student in an Organized Health Care Education/Training Program
DX: Z79.01 Long term (current) use of anticoagulants (principal)
CPT/HCPCS: 85610

== ENCOUNTER → 2020-08-31 16:06 | Outpatient (ROUT) | payer MEDICARE, OTHER, SELFPAY ==
[2020-08-31 16:15] LABS: INR 4.1 (0.9-1.3); Prothrombin Time 47.6 SECONDS (10.1-12.7)
== END ==
PROVIDERS: Family Provider Student in an Organized Health Care Education/Training Program; PCP Student in an Organized Health Care Education/Training Program; Visit Provider Student in an Organized Health Care Education/Training Program
DX: Z79.01 Long term (current) use of anticoagulants (principal)
CPT/HCPCS: 85610

== ENCOUNTER → 2020-09-02 13:51 | Outpatient (ROUT) | payer MEDICARE, OTHER, SELFPAY ==
[2020-09-02 14:09] LABS: INR 2.3 (0.9-1.3); Prothrombin Time 26.6 SECONDS (10.1-12.7)
== END ==
PROVIDERS: Family Provider Student in an Organized Health Care Education/Training Program; PCP Student in an Organized Health Care Education/Training Program; Visit Provider Student in an Organized Health Care Education/Training Program
DX: Z79.01 Long term (current) use of anticoagulants (principal)
CPT/HCPCS: 85610

== ENCOUNTER → 2020-09-21 14:01 | Outpatient (ROUT) | payer MEDICARE, OTHER, SELFPAY ==
[2020-09-21 17:41] LABS: Prothrombin Time 46.7 SECONDS (10.1-12.7)
== END ==
PROVIDERS: Family Provider Student in an Organized Health Care Education/Training Program; PCP Student in an Organized Health Care Education/Training Program; Visit Provider Student in an Organized Health Care Education/Training Program
DX: Z79.01 Long term (current) use of anticoagulants (principal)
CPT/HCPCS: 85610

== ENCOUNTER → 2020-09-28 14:50 | Outpatient (CLI) | payer MEDICARE, OTHER, SELFPAY | PROVIDERS: Family Provider Student in an Organized Health Care Education/Training Program; PCP Student in an Organized Health Care Education/Training Program; Referring Provider Student in an Organized Health Care Education/Training Program; Visit Provider Family Medicine | DX: L03.312 Cellulitis of back [any part except buttock and flank] (principal); L03.317 Cellulitis of buttock; S31.819A Unspecified open wound of right buttock, initial encounter; S31.829A Unspecified open wound of left buttock, initial encounter; L24.89 Irritant contact dermatitis due to other agents; N39.46 Mixed incontinence | CPT/HCPCS: 87070; 87075; 87077; 87147; 87186; 87205; 97597; 99213; 99214 ==

== ENCOUNTER → 2020-10-05 14:21 | Outpatient (CLI) | payer MEDICARE, OTHER, SELFPAY | PROVIDERS: Family Provider Student in an Organized Health Care Education/Training Program; PCP Student in an Organized Health Care Education/Training Program; Referring Provider Student in an Organized Health Care Education/Training Program; Visit Provider Family Medicine | DX: L03.312 Cellulitis of back [any part except buttock and flank] (principal); L03.317 Cellulitis of buttock; S31.819A Unspecified open wound of right buttock, initial encounter; S31.829A Unspecified open wound of left buttock, initial encounter; L24.89 Irritant contact dermatitis due to other agents; R32 Unspecified urinary incontinence; B95.7 Other staphylococcus as the cause of diseases classified elsewhere; B95.61 Methicillin susceptible Staphylococcus aureus infection as the cause of diseases classified elsewhere | CPT/HCPCS: 99213; 99214 ==

== ENCOUNTER → 2020-10-05 16:05 | Outpatient (ROUT) | payer MEDICARE, OTHER, SELFPAY ==
[2020-10-05 17:15] LABS: INR 1.6 (0.9-1.3)
== END ==
PROVIDERS: Family Provider Student in an Organized Health Care Education/Training Program; PCP Student in an Organized Health Care Education/Training Program; Visit Provider Student in an Organized Health Care Education/Training Program
DX: Z79.01 Long term (current) use of anticoagulants (principal)
CPT/HCPCS: 85610

== ENCOUNTER → 2020-10-13 13:29 | Outpatient (CLI) | payer MEDICARE, OTHER, SELFPAY | PROVIDERS: Family Provider Student in an Organized Health Care Education/Training Program; PCP Student in an Organized Health Care Education/Training Program; Referring Provider Student in an Organized Health Care Education/Training Program; Visit Provider Family Medicine | DX: S31.819A Unspecified open wound of right buttock, initial encounter (principal); S31.829A Unspecified open wound of left buttock, initial encounter; L03.312 Cellulitis of back [any part except buttock and flank]; L03.317 Cellulitis of buttock; R32 Unspecified urinary incontinence; L24.89 Irritant contact dermatitis due to other agents | CPT/HCPCS: 97597; 99213 ==

== ENCOUNTER → 2020-10-19 14:37 | Outpatient (ROUT) | payer MEDICARE, OTHER, SELFPAY ==
[2020-10-19 15:11] LABS: INR 1.7 (0.9-1.3); Prothrombin Time 19.5 SECONDS (10.1-12.7)
== END ==
PROVIDERS: Family Provider Student in an Organized Health Care Education/Training Program; PCP Student in an Organized Health Care Education/Training Program; Visit Provider Student in an Organized Health Care Education/Training Program
DX: Z79.01 Long term (current) use of anticoagulants (principal)
CPT/HCPCS: 85610

== ENCOUNTER → 2020-10-20 14:16 | Outpatient (CLI) | payer MEDICARE, OTHER, SELFPAY | PROVIDERS: Family Provider Student in an Organized Health Care Education/Training Program; PCP Student in an Organized Health Care Education/Training Program; Referring Provider Student in an Organized Health Care Education/Training Program; Visit Provider Family Medicine | DX: L03.317 Cellulitis of buttock (principal); S31.819A Unspecified open wound of right buttock, initial encounter; S31.829A Unspecified open wound of left buttock, initial encounter; L24.89 Irritant contact dermatitis due to other agents; R32 Unspecified urinary incontinence; Z87.891 Personal history of nicotine dependence | CPT/HCPCS: 87070; 87075; 87077; 87186; 87205; 97597; 99213 ==

== ENCOUNTER → 2020-11-01 10:56 | Outpatient (CLI) | payer MEDICARE, OTHER, SELFPAY | PROVIDERS: Family Provider Student in an Organized Health Care Education/Training Program; PCP Student in an Organized Health Care Education/Training Program; Referring Provider Urology; Visit Provider Urology | DX: R32 Unspecified urinary incontinence (principal); R15.9 Full incontinence of feces; R29.898 Other symptoms and signs involving the musculoskeletal system; Z53.8 Procedure and treatment not carried out for other reasons ==

== ENCOUNTER → 2020-11-01 12:04 | Outpatient (ROUT) | payer MEDICARE, OTHER, SELFPAY ==
[2020-11-01 14:00] LABS: Prothrombin Time 34.8 SECONDS (10.1-12.7)
== END ==
PROVIDERS: Family Provider Student in an Organized Health Care Education/Training Program; PCP Student in an Organized Health Care Education/Training Program; Visit Provider Student in an Organized Health Care Education/Training Program
DX: Z79.01 Long term (current) use of anticoagulants (principal)
CPT/HCPCS: 85610

== ENCOUNTER → 2020-11-01 14:31 | Outpatient (CLI) | payer MEDICARE, OTHER, SELFPAY | PROVIDERS: Family Provider Student in an Organized Health Care Education/Training Program; PCP Student in an Organized Health Care Education/Training Program; Referring Provider Student in an Organized Health Care Education/Training Program; Visit Provider Family Medicine | DX: R32 Unspecified urinary incontinence (principal); S31.819A Unspecified open wound of right buttock, initial encounter; S31.829A Unspecified open wound of left buttock, initial encounter; B35.4 Tinea corporis; L08.9 Local infection of the skin and subcutaneous tissue, unspecified; Z79.01 Long term (current) use of anticoagulants | CPT/HCPCS: 99213; 99214 ==

== ENCOUNTER → 2020-11-08 14:50 | Outpatient (CLI) | payer MEDICARE, OTHER, SELFPAY | PROVIDERS: Family Provider Student in an Organized Health Care Education/Training Program; PCP Student in an Organized Health Care Education/Training Program; Referring Provider Student in an Organized Health Care Education/Training Program; Visit Provider Family Medicine | DX: S31.819A Unspecified open wound of right buttock, initial encounter (principal); S31.829A Unspecified open wound of left buttock, initial encounter; L08.9 Local infection of the skin and subcutaneous tissue, unspecified; R32 Unspecified urinary incontinence; R15.9 Full incontinence of feces; B35.4 Tinea corporis; Z79.01 Long term (current) use of anticoagulants; Z79.2 Long term (current) use of antibiotics | CPT/HCPCS: 97597; 99213 ==

== ENCOUNTER → 2020-11-18 14:21 | Outpatient (CLI) | payer MEDICARE, OTHER, SELFPAY ==
[2020-11-18 15:26] LABS: BUN Creatinine Ratio 38.8 (6-22); Blood Urea Nitrogen 33 mg/dL (7-17); Calcium 9.6 mg/dL (8.4-10.2); Carbon Dioxide 28 mmol/L (22-32); Chloride 106 mmol/L (98-107); Estimated Glomerular Filt Rate > 60.0 mL/min (>60); Glucose 102 mg/dL (80-110); HEMOLYSIS 28 (0-50); Potassium 4.1 mmol/L (3.4-5.1); Sodium 142 mmol/L (137-145)
== END ==
PROVIDERS: Family Provider Student in an Organized Health Care Education/Training Program; PCP Student in an Organized Health Care Education/Training Program; Referring Provider Urology; Visit Provider Urology
DX: R15.9 Full incontinence of feces (principal); R29.898 Other symptoms and signs involving the musculoskeletal system; R32 Unspecified urinary incontinence
CPT/HCPCS: 36415; 80048

== ENCOUNTER → 2020-11-19 15:14 | Outpatient (CLI) | payer MEDICARE, OTHER, SELFPAY ==
--- NOTE | 2020-11-19 15:18 | DI.CT.S_ITS ---
PROCEDURE: CT LUMBAR SPINE WO/W CON INDICATIONS: see below TECHNIQUE: After the administration of intravenous Isovue contrast, 3 mm thick sections acquired through the levels of interest. Sagittal and coronal reformats were then constructed. For radiation dose reduction, the following was used: automated exposure control. COMPARISON: None. FINDINGS: Vertebral body height is maintained throughout the exam. Appropriate osseous mineralization noted. There is been L4-5 posterolateral fusion with supporting mohsen and screw instrumentation in good position. No evidence of hardware failure loosening. L4 decompressive laminectomy is present. Good graft incorporation. No abnormal enhancement throughout the exam. Atherosclerotic calcification in the abdominal aorta noted without evidence of aneurysm. No paraspinal mass. Sigmoid diverticulosis noted. At T12-L1, there is disc space narrowing and vacuum disc phenomena present with large anterior osteophyte. Posterior disc bulge results in moderate central stenosis. Hypertrophic facet joints result in bilateral moderate severe foraminal stenosis. At L1-2, severe disc space narrowing and circumferential disc bulge with hypertrophic facet joints to result in mild central and severe bilateral foraminal stenosis. Mild retrolisthesis noted as well. At L2-3, there is severe disc space narrowing with mild retro listhesis. Large circumferential disc bulge associated with anterolateral osteophyte. There is moderate central and severe left foraminal stenosis. Moderate right foraminal stenosis present. At L3-4, moderate disc space narrowing and posterior disc bulge combines with hypertrophic facet joints to result in moderate central stenosis. Moderate bilateral foraminal stenosis present. At L4-5, mild disc space narrowing with vacuum disc phenomena present. No central stenosis. There is moderate bilateral foraminal stenosis present. At L5-S1, mild disc space narrowing with vacuum disc phenomena and circumferential disc bulge noted. Mild central and moderate bilateral foraminal stenosis. IMPRESSION: Multilevel degenerative disc disease and arthropathy resulting in varying degrees of central and foraminal stenosis including moderate central and severe left foraminal stenosis at L2-3 L4-5 decompressive laminectomy, posterolateral fusion and mohsen and screw instrumentation. No evidence of hardware failure or loosening. No abnormal enhancement throughout the exam. Approved by: Live Carrillo M.D. on 11/19/2020 at 16:51
== END ==
PROVIDERS: Family Provider Student in an Organized Health Care Education/Training Program; PCP Student in an Organized Health Care Education/Training Program; Referring Provider Urology; Visit Provider Urology
DX: R29.898 Other symptoms and signs involving the musculoskeletal system (principal); R32 Unspecified urinary incontinence; R15.9 Full incontinence of feces; M47.816 Spondylosis without myelopathy or radiculopathy, lumbar region; M51.36 Other intervertebral disc degeneration, lumbar region; M48.061 Spinal stenosis, lumbar region without neurogenic claudication; Z98.1 Arthrodesis status
CPT/HCPCS: 72133; Q9967

== ENCOUNTER → 2020-11-23 14:00 | Outpatient (CLI) | payer MEDICARE, OTHER, SELFPAY | PROVIDERS: Family Provider Student in an Organized Health Care Education/Training Program; PCP Student in an Organized Health Care Education/Training Program; Referring Provider Student in an Organized Health Care Education/Training Program; Visit Provider Family Medicine | DX: L24.89 Irritant contact dermatitis due to other agents (principal); R32 Unspecified urinary incontinence; R15.9 Full incontinence of feces; Z74.09 Other reduced mobility | CPT/HCPCS: 99213; 99214 ==

== ENCOUNTER → 2020-11-30 14:19 | Outpatient (ROUT) | payer MEDICARE, OTHER, SELFPAY ==
[2020-11-30 14:36] LABS: INR 3.3 (0.9-1.3)
== END ==
PROVIDERS: Family Provider Student in an Organized Health Care Education/Training Program; PCP Student in an Organized Health Care Education/Training Program; Visit Provider Student in an Organized Health Care Education/Training Program
DX: Z79.01 Long term (current) use of anticoagulants (principal)
CPT/HCPCS: 85610

== ENCOUNTER → 2020-11-30 14:25 | Outpatient (CLI) | payer MEDICARE, OTHER, SELFPAY | PROVIDERS: Family Provider Student in an Organized Health Care Education/Training Program; PCP Student in an Organized Health Care Education/Training Program; Visit Provider Urology | DX: N30.01 Acute cystitis with hematuria (principal); R32 Unspecified urinary incontinence; L89.95 Pressure ulcer of unspecified site, unstageable; R29.898 Other symptoms and signs involving the musculoskeletal system; R15.9 Full incontinence of feces; R53.81 Other malaise | CPT/HCPCS: 51701; 81002; 87077; 87086; 87186; 99213 ==

== ENCOUNTER → 2020-12-15 13:45 | Outpatient (CLI) | payer MEDICARE, OTHER, SELFPAY | PROVIDERS: Family Provider Student in an Organized Health Care Education/Training Program; PCP Student in an Organized Health Care Education/Training Program; Referring Provider Student in an Organized Health Care Education/Training Program; Visit Provider Family Medicine | DX: R32 Unspecified urinary incontinence (principal); R15.9 Full incontinence of feces; Z74.09 Other reduced mobility; L08.9 Local infection of the skin and subcutaneous tissue, unspecified; L30.9 Dermatitis, unspecified; S31.819A Unspecified open wound of right buttock, initial encounter; S31.829A Unspecified open wound of left buttock, initial encounter | CPT/HCPCS: 11042; 87070; 87075; 87077; 87186; 87205; 99214 ==

== ENCOUNTER → 2020-12-21 14:08 | Outpatient (ROUT) | payer MEDICARE, OTHER, SELFPAY ==
[2020-12-21 14:24] LABS: INR 4.5 (0.9-1.3)
[2020-12-21 14:31] LABS: Prothrombin Time 52.8 SECONDS (10.1-12.7)
== END ==
PROVIDERS: Family Provider Student in an Organized Health Care Education/Training Program; PCP Student in an Organized Health Care Education/Training Program; Visit Provider Student in an Organized Health Care Education/Training Program
DX: I48.91 Unspecified atrial fibrillation (principal); Z79.01 Long term (current) use of anticoagulants
CPT/HCPCS: 85610

== ENCOUNTER → 2021-01-05 14:05 | Outpatient (CLI) | payer MEDICARE, OTHER, SELFPAY | PROVIDERS: Family Provider Student in an Organized Health Care Education/Training Program; PCP Student in an Organized Health Care Education/Training Program; Referring Provider Student in an Organized Health Care Education/Training Program; Visit Provider Family Medicine | DX: R32 Unspecified urinary incontinence (principal); R15.9 Full incontinence of feces; S31.819A Unspecified open wound of right buttock, initial encounter; S31.829A Unspecified open wound of left buttock, initial encounter; Z79.01 Long term (current) use of anticoagulants; L08.9 Local infection of the skin and subcutaneous tissue, unspecified | CPT/HCPCS: 11042; 99214 ==

== ENCOUNTER → 2021-01-05 15:49 | Outpatient (ROUT) | payer MEDICARE, OTHER, SELFPAY ==
[2021-01-05 16:05] LABS: INR 2.2 (0.9-1.3); Prothrombin Time 24.4 SECONDS (10.1-12.7)
== END ==
PROVIDERS: Family Provider Student in an Organized Health Care Education/Training Program; PCP Student in an Organized Health Care Education/Training Program; Visit Provider Student in an Organized Health Care Education/Training Program
DX: L08.89 Other specified local infections of the skin and subcutaneous tissue (principal)
CPT/HCPCS: 85610; 87070; 87075; 87077; 87186; 87205

== ENCOUNTER → 2021-01-14 15:38 | Outpatient (CLI) | payer MEDICARE, OTHER, SELFPAY ==
[2021-01-14 16:22] LABS: INR 4.4 (0.9-1.3); Prothrombin Time 50.6 SECONDS (10.1-12.7)
== END ==
PROVIDERS: Family Provider Student in an Organized Health Care Education/Training Program; PCP Student in an Organized Health Care Education/Training Program; Referring Provider Student in an Organized Health Care Education/Training Program; Visit Provider Student in an Organized Health Care Education/Training Program
DX: Z79.01 Long term (current) use of anticoagulants (principal); I48.91 Unspecified atrial fibrillation
CPT/HCPCS: 36415; 85610

== ENCOUNTER → 2021-01-19 14:19 | Outpatient (ROUT) | payer MEDICARE, OTHER, SELFPAY ==
[2021-01-19 14:42] LABS: INR 2.3 (0.9-1.3); Prothrombin Time 26.2 SECONDS (10.1-12.7)
== END ==
PROVIDERS: Family Provider Student in an Organized Health Care Education/Training Program; PCP Student in an Organized Health Care Education/Training Program; Visit Provider Student in an Organized Health Care Education/Training Program
DX: I48.91 Unspecified atrial fibrillation (principal); Z79.01 Long term (current) use of anticoagulants
CPT/HCPCS: 85610

== ENCOUNTER → 2021-01-21 14:13 | Outpatient (CLI) | payer MEDICARE, OTHER, SELFPAY ==
[2021-01-21 14:27] LABS: Appearance Urine UA CLEAR; Bilirubin Urine UA NEGATIVE (NEGATIVE); Color Urine UA YELLOW; Glucose Urine UA NEGATIVE (Negative); Ketones Urine UA NEGATIVE (NEGATIVE); Leukocyte Esterase Urine UA NEGATIVE (NEGATIVE); Nitrite Urine UA NEGATIVE (Negative); Occult Blood Urine UA NEGATIVE (Negative); Protein Urine UA NEGATIVE (Negative); Specific Gravity Urine UA 1.015 (1.000-1.035); Urobilinogen Urine UA 0.2 E.U./dL (0.2)
[2021-01-21 14:36] LABS: RBC Urine None Seen (0-5/HPF); Squamous Epithelial Cell Urine 5-10 /HPF (0-5/HPF); WBC Urine None Seen (0-5/HPF)
[2021-01-21 14:37] LABS: Bacteria Urine None Seen; Culture Indicated Urine Cult Not Indicated
== END ==
PROVIDERS: Family Provider Student in an Organized Health Care Education/Training Program; PCP Student in an Organized Health Care Education/Training Program; Visit Provider Urology
DX: R30.0 Dysuria (principal); N39.41 Urge incontinence
CPT/HCPCS: 51701; 81001

== ENCOUNTER → 2021-01-31 13:34 | Outpatient (CLI) | payer MEDICARE, OTHER, SELFPAY | PROVIDERS: Family Provider Student in an Organized Health Care Education/Training Program; PCP Student in an Organized Health Care Education/Training Program; Referring Provider Student in an Organized Health Care Education/Training Program; Visit Provider Family Medicine | DX: R21 Rash and other nonspecific skin eruption (principal); R32 Unspecified urinary incontinence; R15.9 Full incontinence of feces; Z74.09 Other reduced mobility; S31.819A Unspecified open wound of right buttock, initial encounter; S31.829A Unspecified open wound of left buttock, initial encounter | CPT/HCPCS: 97597; 99214 ==

== ENCOUNTER → 2021-02-21 13:14 | Outpatient (CLI) | payer MEDICARE, OTHER, SELFPAY | PROVIDERS: Family Provider Student in an Organized Health Care Education/Training Program; PCP Student in an Organized Health Care Education/Training Program; Referring Provider Student in an Organized Health Care Education/Training Program; Visit Provider Family Medicine | DX: R21 Rash and other nonspecific skin eruption (principal); S31.819A Unspecified open wound of right buttock, initial encounter; S31.829A Unspecified open wound of left buttock, initial encounter; R32 Unspecified urinary incontinence; R15.9 Full incontinence of feces; Z79.01 Long term (current) use of anticoagulants | CPT/HCPCS: 11042 ==

== ENCOUNTER → 2021-03-10 13:49 | Outpatient (CLI) | payer MEDICARE, OTHER, SELFPAY ==
[2021-03-10 14:44] LABS: INR 2.6 (0.9-1.3); Prothrombin Time 29.6 SECONDS (10.1-12.7)
== END ==
PROVIDERS: Family Provider Student in an Organized Health Care Education/Training Program; PCP Student in an Organized Health Care Education/Training Program; Referring Provider Student in an Organized Health Care Education/Training Program; Visit Provider Student in an Organized Health Care Education/Training Program
DX: I48.91 Unspecified atrial fibrillation (principal); Z79.01 Long term (current) use of anticoagulants
CPT/HCPCS: 36415; 85610

== ENCOUNTER → 2021-03-16 13:13 | Outpatient (CLI) | payer MEDICARE, OTHER, SELFPAY | PROVIDERS: Family Provider Student in an Organized Health Care Education/Training Program; PCP Student in an Organized Health Care Education/Training Program; Referring Provider Student in an Organized Health Care Education/Training Program; Visit Provider Family Medicine | DX: R32 Unspecified urinary incontinence (principal); R15.9 Full incontinence of feces; S31.819A Unspecified open wound of right buttock, initial encounter; S31.829A Unspecified open wound of left buttock, initial encounter; Z79.01 Long term (current) use of anticoagulants; L30.8 Other specified dermatitis | CPT/HCPCS: 99213 ==

== ENCOUNTER → 2021-04-06 14:42 | Outpatient (CLI) | payer MEDICARE, OTHER, SELFPAY | PROVIDERS: Family Provider Student in an Organized Health Care Education/Training Program; PCP Student in an Organized Health Care Education/Training Program; Referring Provider Student in an Organized Health Care Education/Training Program; Visit Provider Family Medicine | DX: S31.819A Unspecified open wound of right buttock, initial encounter (principal); S31.829A Unspecified open wound of left buttock, initial encounter; R32 Unspecified urinary incontinence; R15.9 Full incontinence of feces; L30.8 Other specified dermatitis; K62.89 Other specified diseases of anus and rectum; E66.9 Obesity, unspecified; Z68.31 Body mass index [BMI] 31.0-31.9, adult; Z79.01 Long term (current) use of anticoagulants; Z74.09 Other reduced mobility | CPT/HCPCS: 99212; 99213 ==

== ENCOUNTER → 2021-04-18 13:49 | Outpatient (CLI) | payer MEDICARE, OTHER, SELFPAY ==
[2021-04-18 16:29] LABS: INR 3.6 (0.9-1.3); Prothrombin Time 41.7 SECONDS (10.1-12.7)
== END ==
PROVIDERS: Family Provider Student in an Organized Health Care Education/Training Program; PCP Student in an Organized Health Care Education/Training Program; Referring Provider Student in an Organized Health Care Education/Training Program; Visit Provider Student in an Organized Health Care Education/Training Program
DX: I48.91 Unspecified atrial fibrillation (principal); Z79.01 Long term (current) use of anticoagulants
CPT/HCPCS: 36415; 85610

== ENCOUNTER → 2021-04-27 14:55 | Outpatient (CLI) | payer MEDICARE, OTHER, SELFPAY | PROVIDERS: Family Provider Student in an Organized Health Care Education/Training Program; PCP Student in an Organized Health Care Education/Training Program; Referring Provider Student in an Organized Health Care Education/Training Program; Visit Provider Family Medicine | DX: S31.829A Unspecified open wound of left buttock, initial encounter (principal); R32 Unspecified urinary incontinence; R15.9 Full incontinence of feces; L30.8 Other specified dermatitis; K62.89 Other specified diseases of anus and rectum; E66.9 Obesity, unspecified; Z68.31 Body mass index [BMI] 31.0-31.9, adult; Z79.01 Long term (current) use of anticoagulants; Z74.09 Other reduced mobility | CPT/HCPCS: 97597; 99213 ==

== ENCOUNTER → 2021-05-17 14:10 | Outpatient (CLI) | payer MEDICARE, OTHER, SELFPAY | PROVIDERS: Family Provider Student in an Organized Health Care Education/Training Program; PCP Student in an Organized Health Care Education/Training Program; Referring Provider Student in an Organized Health Care Education/Training Program; Visit Provider Family Medicine | DX: S31.819A Unspecified open wound of right buttock, initial encounter (principal); S31.829A Unspecified open wound of left buttock, initial encounter; R32 Unspecified urinary incontinence; R15.9 Full incontinence of feces; L30.8 Other specified dermatitis; K62.89 Other specified diseases of anus and rectum; E66.9 Obesity, unspecified; Z68.31 Body mass index [BMI] 31.0-31.9, adult; Z79.01 Long term (current) use of anticoagulants; Z74.09 Other reduced mobility | CPT/HCPCS: 99213; 99214 ==

== ENCOUNTER → 2021-06-09 13:20 | Outpatient (CLI) | payer MEDICARE, OTHER, SELFPAY | PROVIDERS: Family Provider Student in an Organized Health Care Education/Training Program; PCP Student in an Organized Health Care Education/Training Program; Referring Provider Student in an Organized Health Care Education/Training Program; Visit Provider Family Medicine | DX: S31.819A Unspecified open wound of right buttock, initial encounter (principal); S31.829A Unspecified open wound of left buttock, initial encounter; L08.9 Local infection of the skin and subcutaneous tissue, unspecified; L30.8 Other specified dermatitis; L30.4 Erythema intertrigo; R32 Unspecified urinary incontinence; R15.9 Full incontinence of feces; K62.89 Other specified diseases of anus and rectum; E66.9 Obesity, unspecified; G31.84 Mild cognitive impairment of uncertain or unknown etiology; Z79.01 Long term (current) use of anticoagulants; Z74.09 Other reduced mobility; Z68.29 Body mass index [BMI] 29.0-29.9, adult | CPT/HCPCS: 87070; 87075; 87077; 87147; 87186; 87205; 97597; 99213; 99214 ==

== ENCOUNTER → 2021-06-23 12:57 | Outpatient (CLI) | payer MEDICARE, OTHER, SELFPAY | PROVIDERS: Family Provider Student in an Organized Health Care Education/Training Program; PCP Student in an Organized Health Care Education/Training Program; Referring Provider Student in an Organized Health Care Education/Training Program; Visit Provider Family Medicine | DX: S31.819A Unspecified open wound of right buttock, initial encounter (principal); S31.829A Unspecified open wound of left buttock, initial encounter; B95.62 Methicillin resistant Staphylococcus aureus infection as the cause of diseases classified elsewhere; L30.8 Other specified dermatitis; L30.4 Erythema intertrigo; R32 Unspecified urinary incontinence; R15.9 Full incontinence of feces; K62.89 Other specified diseases of anus and rectum; E66.9 Obesity, unspecified; G31.84 Mild cognitive impairment of uncertain or unknown etiology; Z79.01 Long term (current) use of anticoagulants; Z74.09 Other reduced mobility; Z68.30 Body mass index [BMI] 30.0-30.9, adult | CPT/HCPCS: 11042; 99214 ==

== ENCOUNTER → 2021-06-28 13:54 | Outpatient (CLI) | payer MEDICARE, OTHER, SELFPAY ==
[2021-06-28 15:40] LABS: INR 2.5 (0.9-1.3); Prothrombin Time 28.8 SECONDS (10.1-12.7)
== END ==
PROVIDERS: Family Provider Student in an Organized Health Care Education/Training Program; PCP Student in an Organized Health Care Education/Training Program; Referring Provider Student in an Organized Health Care Education/Training Program; Visit Provider Student in an Organized Health Care Education/Training Program
DX: I48.91 Unspecified atrial fibrillation (principal); Z79.01 Long term (current) use of anticoagulants
CPT/HCPCS: 36415; 85610

== ENCOUNTER → 2021-07-07 14:21 | Outpatient (CLI) | payer MEDICARE, OTHER, SELFPAY | PROVIDERS: Family Provider Student in an Organized Health Care Education/Training Program; PCP Student in an Organized Health Care Education/Training Program; Referring Provider Student in an Organized Health Care Education/Training Program; Visit Provider Family Medicine | DX: S31.819A Unspecified open wound of right buttock, initial encounter (principal); S31.829A Unspecified open wound of left buttock, initial encounter; R32 Unspecified urinary incontinence; R15.9 Full incontinence of feces; K62.89 Other specified diseases of anus and rectum; L30.4 Erythema intertrigo; L30.8 Other specified dermatitis; E66.9 Obesity, unspecified; G31.84 Mild cognitive impairment of uncertain or unknown etiology; Z79.01 Long term (current) use of anticoagulants; Z74.09 Other reduced mobility; Z68.30 Body mass index [BMI] 30.0-30.9, adult | CPT/HCPCS: 99213 ==

== ENCOUNTER → 2021-07-28 13:34 | Outpatient (CLI) | payer MEDICARE, OTHER, SELFPAY | PROVIDERS: Family Provider Student in an Organized Health Care Education/Training Program; PCP Student in an Organized Health Care Education/Training Program; Referring Provider Student in an Organized Health Care Education/Training Program; Visit Provider Family Medicine | DX: Z09 Encounter for follow-up examination after completed treatment for conditions other than malignant neoplasm (principal); R32 Unspecified urinary incontinence; R15.9 Full incontinence of feces; K62.89 Other specified diseases of anus and rectum; L98.8 Other specified disorders of the skin and subcutaneous tissue; Z79.01 Long term (current) use of anticoagulants; Z74.09 Other reduced mobility; Z87.2 Personal history of diseases of the skin and subcutaneous tissue | CPT/HCPCS: 99213 ==

== ENCOUNTER → 2021-09-21 14:26 | Outpatient (CLI) | payer MEDICARE, OTHER, SELFPAY | PROVIDERS: Family Provider Student in an Organized Health Care Education/Training Program; PCP Student in an Organized Health Care Education/Training Program; Referring Provider Student in an Organized Health Care Education/Training Program; Visit Provider Family Medicine | DX: L89.150 Pressure ulcer of sacral region, unstageable (principal); R23.4 Changes in skin texture; R21 Rash and other nonspecific skin eruption; R32 Unspecified urinary incontinence; R15.9 Full incontinence of feces; K62.89 Other specified diseases of anus and rectum; E66.9 Obesity, unspecified; Z68.29 Body mass index [BMI] 29.0-29.9, adult; Z79.01 Long term (current) use of anticoagulants; Z74.09 Other reduced mobility; Z60.8 Other problems related to social environment; L03.317 Cellulitis of buttock | CPT/HCPCS: 11042; 11045; 99213; 99214 ==

== ENCOUNTER 2021-09-28 14:55 | Inpatient (IN) | payer MEDICARE, OTHER, SELFPAY ==
[2021-09-28] VITALS (25 sets, daily range): BP systolic 109–152; BP diastolic 53–98; PULSE 76–98; RESP 16–26; TEMP 36.6; O2SAT 91–99; BMI 28.3
--- NOTE | 2021-09-28 17:57 | PC.NURSE ---
Pt sent over by Dr. Bustillos (Wound Care MD) for unstageable pressure injury. Pt reports wound present for past several months on her coccyx. Wound is black and with some yellow drainage, skin around bottom is bright red. Packing present upon initial assessment. reports no recent abx. Pt denies pain. 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 Pt is intermittently incontinent. Call light within reach.
--- NOTE | 2021-09-28 18:32 | DI.CT.S_ITS ---
PROCEDURE: CT CHEST ABD PEL W CON INDICATIONS: IV contrast only/gluteal abscess TECHNIQUE: After the administration of oral and intravenous contrast, axial sections acquired from the supraclavicular neck to the pubic symphysis. Coronal and sagittal reformats were performed. For radiation dose reduction, the following was used: automated exposure control, adjustment of mA and/or kV according to patient size. COMPARISON:None. FINDINGS: Image quality: Excellent. CHEST: Lower Neck: No enlarged lymph nodes. Thyroid: Within normal limits. Axillae: No enlarged lymph nodes. Chest Wall: Unremarkable. Lungs and Airways: Bilateral diaphragmatic eventration. No consolidation or suspicious nodules. Pleura: No pneumothorax or pleural effusions. Heart: Heart is moderately enlarged. No pericardial effusion. Moderate to severe coronary artery calcification. Thoracic Vessels: The aorta and pulmonary arteries demonstrate normal size. Mediastinum and Mel: No enlarged lymph nodes. Esophagus: No wall thickening. No hiatal hernia. ABDOMEN: Liver: There is hepatic steatosis. Liver is normal in size. Gallbladder: A small gallstone is present. No gallbladder wall thickening or pericholecystic fluid. Biliary ducts: Unremarkable. Pancreas: Unremarkable. Spleen: Normal size. Trace amount of fluid around the spleen. Adrenal Glands: There is left adrenal thickening.. Kidneys and Ureters: Unremarkable. Stomach and Bowel: Stomach, small bowel loops, and colon are normal in caliber. Diverticulosis. No diverticulitis. A moderate amount of stool in colon. Peritoneum: No abnormal intraperitoneal fluid. No free air. Ventral Wall: No hernia. Abdominal Nodes: No retroperitoneal or mesenteric adenopathy by size criteria. Vessels: Aorta and inferior vena cava are normal in size. Severe atherosclerotic calcifications. 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 PELVIS: Pelvic Organs: Unremarkable. Bladder: Unremarkable. Pelvic Nodes: No enlarged lymph nodes. Miscellaneous: No inguinal hernias are seen. There is a skin defect in the area posterior to coccyx consistent with a cutaneous ulcer. There is a small fluid collection with peripheral enhancement adjacent to the ulceration measuring 1.0 x 1.8 cm, compatible with a small abscess Bones: Osteopenia. Severe degenerative and postsurgical changes in in lumbar spine. There is a right hip prosthesis. IMPRESSION: 1. Small skin defect in the area superficial to the coccyx. A 1.0 x 1.8 cm complex fluid collection with peripheral enhancement is present in the area, consistent with a small abscess. 2. Diverticulosis without diverticulitis. 3. Severe atherosclerotic calcifications of aorta. 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 4. Cholelithiasis. 5. Moderate cardiomegaly. 6. Coronary artery disease. Dictated by: Elva Castillo M.D. on 09/28/2021 at 20:17 Approved by: Elva Castillo M.D. on 09/28/2021 at 20:27
--- NOTE | 2021-09-28 18:34 | ED_ITS ---
HPI - Wound/Laceration General Chief Complaint: Wound/Laceration Stated Complaint: BACK WOUND SENT BY WOUND DR Time Seen by Provider: 09/28/21 18:21 Source: patient Mode of arrival: Ambulatory History of Present Illness HPI narrative: Patient here for evaluation of worsening decubitus ulcer on the sacrum. Patient is here with . They do live at home together. Sent here from Wound Care, Dr. Bustillos, has been seen patient off and on for sacral decubital ulcer that has worsened and is out of level care for outpatient management. Patient currently not on antibiotics. Patient is ambulatory but with a cyst. However states she is mostly bed-bound. Related Data Home Medications Medication Instructions Recorded Confirmed lisinopril 5 mg tablet (Zestril) 5 mg PO QPM ##0 07/03/11 01/26/21 omega 1-wcv-yxw-fish oil 1,000 mg 1 cap PO DAILY ##0 03/03/12 01/26/21 (120 mg-180 mg) capsule (Fish Oil) acetaminophen 325 mg tablet 325 mg PO Q4HP PRN pain ##0 01/15/17 01/26/21 donepezil 5 mg tablet 5 mg PO DAILY ##0 01/15/17 01/26/21 multivitamin (Multiple Vitamins 1 tab PO DAILY ##0 01/15/17 01/26/21 tablet) memantine 5 mg tablet 5 mg PO QAM 01/22/19 01/26/21 warfarin 2.5 mg tablet 2.5 mg PO SUMOTUWETHFR 01/22/19 01/26/21 warfarin 2.5 mg tablet 5 mg PO QWEEK 01/22/19 01/26/21 furosemide 20 mg tablet 80 mg PO DAILY #0 tabs 01/26/21 01/26/21 potassium chloride 15 mEq 15 meq PO DAILY 01/26/21 01/26/21 tablet,extended release(part/cryst) Allergies Allergy/AdvReac Type Severity Reaction Status Date / Time imipenem [IMIPENEM] Allergy Intermediate TURNED RED Verified 01/26/21 13:52 Review of Systems Review of Systems Narrative: GENERAL: Denies chills, fatigue, malaise, fever, sweats. HEENT: Denies sinus pain, ear pain, sore throat RESPIRATORY: Denies dyspnea, cough CARDIOVASCULAR: Denies chest pain, palpitations GASTROINTESTINAL: Denies nausea, vomiting, abdominal pain : Denies dysuria, frequency, hematuria MUSCULOSKELETAL: denies muscle or bony pain SKIN: Denies rash, skin lesions, positive for large ulceration NEUROLOGIC: Denies weakness, numbness ROS Unobtainable: All systems reviewed & are unremarkable except as noted in HPI and below Patient History Medical History Abscess or cellulitis of back Atrophic vaginitis Bowel and bladder incontinence Cellulitis of buttock Chicken pox (~1940) Chronic anticoagulation Constipation Contact dermatitis Decubitus ulcer Degenerative joint disease (DJD) of lumbar spine History of urinary tract infection HTN (hypertension) Lower extremity weakness Measles Methicillin susceptible Staphylococcus aureus infection, unspecified site Mumps Osteoporosis Physical deconditioning Urinary tract infection Surgical History H/O gastric bypass History of hip replacement History of knee replacement Previous back surgery Family History Father Cancer Brother Cancer Gout Grandfather Cancer Social History marital status: household members: spouse and children occupational status: other Previous occupational history: retired Smoking Status: Former smoker Tobacco: How many years used: 20 Type(s) of exercise: none Smoking Status: Former smoker Substance Use Type: does not use Exam Narrative Exam Narrative: GENERAL: in no distress, not toxic not dyspneic, in no distress HEAD: Normocephalic. EYES: Pupils equal round No scleral icterus. ENT: Mucous membranes moist. NECK: Trachea midline. CARDIOVASCULAR: Irregular regular RESPIRATORY: Clear to auscultation. Breath sounds equal bilaterally. No wheezes, rales, or rhonchi. GASTROINTESTINAL: Abdomen soft, non-tender EXTREMITIES: No gross deformities. 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 There is a large stage III decubitus ulcer at the sacrum 20 cm in length and 10 cm in width. No bone exposure seen. No bruising. Dressing removed. NEURO: AOx3. Patient at baseline per . SKIN: Warm and dry PSYCH: Not anxious, is cooperative Initial Vital Signs Initial Vital Signs: Vital Signs Temperature 97.9 F 09/28/21 15:13 Pulse Rate 76 09/28/21 15:13 Respiratory Rate 18 09/28/21 15:13 Blood Pressure 109/53 L 09/28/21 15:13 Pulse Oximetry 96 09/28/21 15:13 Oxygen Delivery Method 09/28/21 15:13 Course Course Course Narrative: No new issues during course of stay Decision to Admit Date: 09/28/21 Decision to Admit time: 20:28 Orders Ordered: Discontinued Medications Sodium Chloride (Normal Saline 0.9%) 500 mls @ 1,000 mls/hr IV BOLUS ONE Stop: 09/28/21 19:01 Last Infusion: 09/28/21 20:15 Dose: 0 mls/hr Documented By: Admin: 09/28/21 18:40 Dose: 1,000 mls/hr Documented By: SB Reevaluation(s) Reevaluation #1: Patient and agree for admit. They do understand will need surgical intervention Consultations Consultation #1: Spoke with primary care dr fine, will admit Time: 20:15 Consultation #2: Spoke with general surgery, Dr. Donohue, will see patient as a consult. Time: 20:29 Vital Signs Vital signs: Vital Signs - 8 hr 09/28/21 15:13 09/28/21 16:54 09/28/21 16:55 Temperature 97.9 F Pulse Rate 76 96 H Respiratory Rate 18 Blood Pressure 109/53 L 123/58 L Pulse Oximetry 96 96 Oxygen Delivery Method Room Air Room Air 09/28/21 17:01 09/28/21 17:30 09/28/21 18:00 Temperature Pulse Rate 86 82 82 Respiratory Rate Blood Pressure Pulse Oximetry 91 96 97 Oxygen Delivery Method 09/28/21 18:30 09/28/21 19:00 09/28/21 19:20 Temperature Pulse Rate 96 H 80 Respiratory Rate Blood Pressure 136/80 Pulse Oximetry 97 Oxygen Delivery Method 09/28/21 19:20 09/28/21 19:30 09/28/21 19:40 Temperature Pulse Rate 84 79 Respiratory Rate Blood Pressure 133/60 Pulse Oximetry 96 97 Oxygen Delivery Method 09/28/21 19:40 09/28/21 20:00 09/28/21 20:00 Temperature Pulse Rate 82 85 Respiratory Rate Blood Pressure 144/62 H Pulse Oximetry 97 99 Oxygen Delivery Method 09/28/21 20:20 09/28/21 20:20 Temperature Pulse Rate 97 H Respiratory Rate Blood Pressure 152/65 H Pulse Oximetry 98 Oxygen Delivery Method MDM - Wound/Laceration Differential Diagnosis Differential diagnosis: Likely other (Sacral decubital ulcer) Lab Data Result diagrams: 09/28/21 17:15 09/28/21 17:15 Labs: Lab Results 09/28/21 09/28/21 09/28/21 Range/Units 17:15 17:15 17:15 WBC 10.5 (4.5-11.0) X10^3/uL RBC 3.46 L (4.0-5.2) X10^6/uL Hgb 13.7 (12.0-16.0) g/dL Hct 39.9 (36-46) % MCV 115.2 H (80-100) fL MCH 39.7 H (26-34) PG MCHC 34.5 (30-36) % RDW 13.5 (11.6-14.8) % Plt Count 330 (150-400) X10^3/uL Neut % (Auto) 79.6 H (50-75) % Lymph % (Auto) 9.1 L (25-40) % Clare % (Auto) 7.2 (3-14) % Eos % (Auto) 2.9 (2-4) % Baso % (Auto) 1.2 (0-2) % Neut # (Auto) 8400 H (7660-5530) /uL Lymph # (Auto) 1000 L (7714-4746) /uL Clare # (Auto) 800 (0-900) /uL Eos # (Auto) 300 (0-450) /uL Baso # (Auto) 100 (0-100) /uL RBC Morphology See below Macrocytosis 2+ H PT 32.5 H (10.1-12.7) SECONDS INR 2.8 H (0.9-1.3) APTT (26.4-36.2) SECONDS Sodium 142 (137-145) mmol/L Potassium 3.7 (3.4-5.1) mmol/L Chloride 105 (98-107) mmol/L Carbon Dioxide 30 (22-32) mmol/L BUN 39 H (7-17) mg/dL Creatinine 0.96 (0.52-1.04) mg/dL Estimated GFR 57 L (>60) mL/min BUN/Creatinine Ratio 40.6 H (6-22) Glucose 121 H (80-110) mg/dL Lactate (0.7-2.1) mmol/L Calcium 8.6 (8.4-10.2) mg/dL Total Bilirubin 0.6 (0.2-1.3) mg/dL AST 34 (14-36) IU/L ALT 19 (<35) IU/L Alkaline Phosphatase 146 H (38-126) U/L Total Protein 7.8 (6.3-8.2) g/dL Albumin 3.8 (3.5-5.0) g/dL Globulin 4.0 (1.7-4.1) g/dL Albumin/Globulin Ratio 1.0 (1.0-2.8) Procalcitonin 0.10 (<0.5) ng/mL SARS-CoV-2 (PCR) (Negative) 09/28/21 09/28/21 09/28/21 Range/Units 17:15 17:15 18:36 WBC (4.5-11.0) X10^3/uL RBC (4.0-5.2) X10^6/uL Hgb (12.0-16.0) g/dL Hct (36-46) % MCV (80-100) fL MCH (26-34) PG MCHC (30-36) % RDW (11.6-14.8) % Plt Count (150-400) X10^3/uL Neut % (Auto) (50-75) % Lymph % (Auto) (25-40) % Clare % (Auto) (3-14) % Eos % (Auto) (2-4) % Baso % (Auto) (0-2) % Neut # (Auto) (2976-6388) /uL Lymph # (Auto) (9675-1654) /uL Clare # (Auto) (0-900) /uL Eos # (Auto) (0-450) /uL Baso # (Auto) (0-100) /uL RBC Morphology Macrocytosis PT (10.1-12.7) SECONDS INR (0.9-1.3) APTT 47 H (26.4-36.2) SECONDS Sodium (137-145) mmol/L Potassium (3.4-5.1) mmol/L Chloride (98-107) mmol/L Carbon Dioxide (22-32) mmol/L BUN (7-17) mg/dL Creatinine (0.52-1.04) mg/dL Estimated GFR (>60) mL/min BUN/Creatinine Ratio (6-22) Glucose (80-110) mg/dL Lactate 2.0 (0.7-2.1) mmol/L Calcium (8.4-10.2) mg/dL Total Bilirubin (0.2-1.3) mg/dL AST (14-36) IU/L ALT (<35) IU/L Alkaline Phosphatase (38-126) U/L Total Protein (6.3-8.2) g/dL Albumin (3.5-5.0) g/dL Globulin (1.7-4.1) g/dL Albumin/Globulin Ratio (1.0-2.8) Procalcitonin (<0.5) ng/mL SARS-CoV-2 (PCR) Negative (Negative) Imaging Data CT chest abdomen pelvis: Radiologist's Impression: [place] [address] CT Scan Report Signed Patient: Haily Livingston MR#: [id number] : 1935 Acct:[id number] Age/Sex: 86 / F Date of Service: 09/28/21 Loc: 90-1 Accession Number: [id number] ?? Procedure: CT chest abd pel w con Ordering Provider: Austen Bhatia MD PROCEDURE:? CT CHEST ABD PEL W CON ? INDICATIONS:? IV contrast only/gluteal abscess ? TECHNIQUE:? After the administration of oral and intravenous contrast, axial sections acquired from the supraclavicular neck to the pubic symphysis.? Coronal and sagittal reformats were performed.? For radiation dose reduction, the following was used:? automated exposure control, adjustment of mA and/or kV according to patient size.? ? COMPARISON:None. ? FINDINGS:? Image quality:? Excellent.? ? CHEST: Lower Neck: No enlarged lymph nodes.? Thyroid: Within normal limits. Axillae: No enlarged lymph nodes. Chest Wall:? Unremarkable.? ? Lungs and Airways:? Bilateral diaphragmatic eventration.? No consolidation or suspicious nodules. Pleura: No pneumothorax or pleural effusions.? ? Heart: Heart is moderately enlarged.? No pericardial effusion.? Moderate to severe coronary artery calcification. Thoracic Vessels: The aorta and pulmonary arteries demonstrate normal size.? Mediastinum and Mel: No enlarged lymph nodes.? Esophagus: No wall thickening.? No hiatal hernia. ? ? ABDOMEN: Liver:? There is hepatic steatosis.? Liver is normal in size.? ? Gallbladder:? A small gallstone is present.? No gallbladder wall thickening or pericholecystic fluid.? ? Biliary ducts:? Unremarkable.? ? Pancreas:? Unremarkable.? ? Spleen:? Normal size.? Trace amount of fluid around the spleen.? ? Adrenal Glands:? There is left adrenal thickening..? ? Kidneys and Ureters:? Unremarkable.? ? ? Stomach and Bowel:? Stomach, small bowel loops, and colon are normal in caliber.? Diverticulosis.? No diverticulitis.? A moderate amount of stool in colon. Peritoneum:? No abnormal intraperitoneal fluid.? No free air.? ? Ventral Wall: ? No hernia.? Abdominal Nodes:? No retroperitoneal or mesenteric adenopathy by size criteria.? Vessels:? Aorta and inferior vena cava are normal in size.? Severe atherosclerotic calcifications.? 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 ? PELVIS: Pelvic Organs:? Unremarkable.? ? Bladder:? Unremarkable.? ? Pelvic Nodes: No enlarged lymph nodes.? Miscellaneous: No inguinal hernias are seen.? There is a skin defect in the area posterior to coccyx consistent with a cutaneous ulcer.? There is a small fluid collection with peripheral enhancement adjacent to the ulceration measuring 1.0 x 1.8 cm, compatible with a small abscess ? Bones:? Osteopenia.? ? Severe degenerative and postsurgical changes in in lumbar spine.? There is a right hip prosthesis. ? IMPRESSION:? ? 1.? Small skin defect in the area superficial to the coccyx.? A 1.0 x 1.8 cm complex fluid collection with peripheral enhancement is present in the area, consistent with a small abscess. 2.? Diverticulosis without diverticulitis. 3.? Severe atherosclerotic calcifications of aorta.? 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 4. Cholelithiasis. 5. Moderate cardiomegaly. 6. Coronary artery disease.? Dictated by: Elva Castillo M.D. on 09/28/2021 at 20:17 ? ? Approved by: Elva Castillo M.D. on 09/28/2021 at 20:27 ? ECG Data Interpretation: Atrial fibrillation rate [address] elevation or depression MDM Narrative Medical decision making narrative: Appropriate for admission. Will need surgical intervention possible debridement. At this time is a chronic wound. No antibiotics indicated at this time. I did review with hospitalist as well as surgeon. Discharge Plan Departure Patient Disposition: Admitted As Inpatient Clinical Impression: Decubitus ulcer of sacral region, stage 3 Admit Date/Time: 09/28/21 20:28 Admit Provider: Jamal Fine
[2021-09-28] MEDS: SODIUM CHLORIDE 0.9% 500 ML 1000 ML IV (18:40)
[2021-09-28 18:47] LABS: INR 2.8 (0.9-1.3); Prothrombin Time 32.5 SECONDS (10.1-12.7)
[2021-09-28 18:51] LABS: Add Manual Diff / Slide Review NO; Basophils Absolute Auto 100 /uL (0-100); Basophils Percent Auto 1.2 % (0-2); Eosinophils Absolute Auto 300 /uL (0-450); Eosinophils Percent Auto 2.9 % (2-4); Hematocrit 39.9 % (36-46); Hemoglobin 13.7 g/dL (12.0-16.0); Lymphocytes Absolute Auto 1000 /uL (1100-4500); Lymphocytes Percent Auto 9.1 % (25-40); Mean Corpuscular HGB Conc 34.5 % (30-36); Mean Corpuscular Hemoglobin 39.7 PG (26-34); Mean Corpuscular Volume 115.2 fL (80-100); Monocytes Absolute Auto 800 /uL (0-900); Monocytes Percent Auto 7.2 % (3-14); Neutrophils Absolute Auto 8400 /uL (1500-7000); Neutrophils Percent Auto 79.6 % (50-75); Platelet Count 330 X10^3/uL (150-400); Red Blood Cell Count 3.46 X10^6/uL (4.0-5.2); Red Cell Distribution Width 13.5 % (11.6-14.8); White Blood Cell Count 10.5 X10^3/uL (4.5-11.0)
[2021-09-28 18:54] LABS: Alanine Aminotransferase 19 IU/L (<35); Albumin 3.8 g/dL (3.5-5.0); Alkaline Phosphatase 146 U/L (38-126); Aspartate Aminotransferase 34 IU/L (14-36); BUN Creatinine Ratio 40.6 (6-22); Bilirubin Total 0.6 mg/dL (0.2-1.3); Blood Urea Nitrogen 39 mg/dL (7-17); Calcium 8.6 mg/dL (8.4-10.2); Carbon Dioxide 30 mmol/L (22-32); Chloride 105 mmol/L (98-107); Estimated Glomerular Filt Rate 57 mL/min (>60); Glucose 121 mg/dL (80-110); HEMOLYSIS 31 (0-50); Potassium 3.7 mmol/L (3.4-5.1); Sodium 142 mmol/L (137-145); Total Protein 7.8 g/dL (6.3-8.2)
[2021-09-28 18:55] LABS: PTT Partial Thromboplastin Tim 47 SECONDS (26.4-36.2)
[2021-09-28 19:03] LABS: COVID19 -Nasal RAPID Negative (Negative)
[2021-09-28 19:10] LABS: Macrocytosis 2+
--- NOTE | 2021-09-28 19:59 | PC.NURSE ---
Arleen placed at 1957.
--- NOTE | 2021-09-28 20:09 | CM.DANOTE ---
Addendum entered by Breezy Chen 09/28/21 20:23: Patient's spouse asked if a mccullough catheter could be placed to assist with the incontinence exacerbating the sacral wound/ulcer. Spouse reported urologist had initially talked to them about a surgical placement of a bladder bag but then told them surgery was not recommended for patient. Original Note: Patient is 86yo female sent to ED by wound care provider, Dr. Bustillos. Patient admitted for sacral decubital ulcer that has surpassed ability of outpatient provider to care for. Patient is incontinent of feces as well as urine. Patient is reported to sit in a reclining chair for most of day and then does go to bed in her bed. Patient reported she is able to transfer from recliner to wheelchair unassisted for the most part. Patient's spouse reported he follows her to the bathroom to ensure she gets there safely when patient uses her walker instead of the wheelchair. Patient's spouse assists with bathing (shower chair) but states he would like to have bath aide added to HH at time of discharge as he is physically unable to continue doing the bathing himself. Patient's PCP is Dr. Wallis. Insurance is Medicare and [employer] (spouse stated they will be dropping [employer] soon as it is too expensive). Patient has history with [facility] and did not want to have them again. Does want to have [facility] restarted at time of discharge. Jennifer left voicemail indicating patient is being admitted and that they would like bath aide added. Patient has history with [facility] SNF placement after knee or hip surgery (spouse wasn't sure which). If SNF needed, patient and spouse would prefer one on [facility] to be closer to their home. Spouse reported concern about gas getting back and forth to hospital at this time as they are waiting on funds to be placed in their account on first of month ( and state fci funds); they have a limited income. Spouse stated he did not feel as though they needed any DME; patient has two wheelchairs, a FWW, and shower chair available at home. Patient's son resides in home with patient & spouse. Son does the cooking and driving for the patient/spouse. Son, David, can be transportation for patient at time of discharge. Breezy Chen [facility] Discharge Planning/Care Management CM Discharge Assessment Start: 09/28/21 19:51 Freq: Status: Active Protocol: Document 09/28/21 19:51 CHET (Rec: 09/28/21 20:09 CHET [id number]) Discharge Planning Assessment Assigned Customer Leader Breezy Davison HUSEYIN Advance Directives? No Advance Directives on File No History Provided By Patient,Significant Other Has Patient been admitted in last 30 No days? Prior Living Arrangements House Household Members spouse,children Comment adult son resides at home and does their cooking and transportation assistance Type of transporation used prior to Relies on Others admit Independent with ADL's No: can toilet independently Needs Assistance With Bathing,Meal Prep,Home Chores / Shopping Caregiver for Another No Community Services used prior to Wound Care admission: Comment WC doctor sent patient for admission due to wound beyond o/p ability to satisfactorily treat DME Already Rented / Owned Wheelchair,FWW / Walker,Other Comment has shower chair Patient/Family Preference Home with Home Health Comment already referred to [facility], was supposed to have intake appt today Barriers to Discharge No Discharge Plan Home Community Services Wound Care Transportation Arrangement son will transport Referrals Initiated Home Health Additional Comment already referred prior to admission. restart orders will be needed. Medicare Choice List Provided Yes SNF/HH Preference [facility] SNF then outward geographically, HH w/ [facility] (not [facility]) Has Agency SNF been contacted No Whiteboard Updated in Patient Room with No name and ext. # of Customer Leader Comment completed in ED setting Review Status In Process Next Review Type Continued Stay Review
[2021-09-29] VITALS (22 sets, daily range): BP systolic 106–136; BP diastolic 55–74; PULSE 78–104; RESP 16–27; TEMP 36.4–36.5; O2SAT 92–97; BMI 29.1
--- NOTE | 2021-09-29 08:34 | PM.HP.1 ---
History of Present Illness History of Present Illness Date Patient Seen: 09/29/21 Time Patient Seen: 08:34 Chief complaint: BACK WOUND SENT BY WOUND Narrative: CC: back wound Pt is extremely hard of hearing with cochlear implant. She is uncomfortable but not in pain this morning. she is thirsty for ice water but not hungry. Wound on back I agree appears unstageable. Blood work looks generally ok. eval pending by PT/OT/WC. Appreciate eval by Dr. Donohue today she does recommend debridement. She is on warfarin for afib we will hold til surgery. lives at home with she is generally immobile seems like. Patient History Medical History Abscess or cellulitis of back Atrophic vaginitis Bowel and bladder incontinence Cellulitis of buttock Chicken pox (~1940) Chronic anticoagulation Constipation Contact dermatitis Decubitus ulcer Degenerative joint disease (DJD) of lumbar spine History of urinary tract infection HTN (hypertension) Lower extremity weakness Measles Methicillin susceptible Staphylococcus aureus infection, unspecified site Mumps Osteoporosis Physical deconditioning Urinary tract infection Surgical History H/O gastric bypass History of hip replacement History of knee replacement Previous back surgery Family & Social History Family History Father Cancer Brother Cancer Gout Grandfather Cancer Social History: household members spouse,children Prior Living Arrangements House Safety & Behavioral: Feels Safe in Current Yes Environment Been Physically Hurt or No Threatened By a Person Tobacco & Substance use: Smoking Status Former smoker Substance Use Type does not use Meds Home Medications and Allergies Home Medications Medication Instructions Recorded Confirmed Type lisinopril 5 mg tablet (Zestril) 5 mg PO QPM ##0 07/03/11 01/26/21 History omega 4-dmc-jqi-fish oil 1,000 mg 1 cap PO DAILY ##0 03/03/12 01/26/21 History (120 mg-180 mg) capsule (Fish Oil) acetaminophen 325 mg tablet 325 mg PO Q4HP PRN pain ##0 01/15/17 01/26/21 History donepezil 5 mg tablet 5 mg PO DAILY ##0 01/15/17 01/26/21 History multivitamin (Multiple Vitamins 1 tab PO DAILY ##0 01/15/17 01/26/21 History tablet) memantine 5 mg tablet 5 mg PO QAM 01/22/19 01/26/21 History warfarin 2.5 mg tablet 2.5 mg PO SUMOTUWETHFR 01/22/19 01/26/21 History warfarin 2.5 mg tablet 5 mg PO QWEEK 01/22/19 01/26/21 History furosemide 20 mg tablet 80 mg PO DAILY #0 tabs 01/26/21 01/26/21 History potassium chloride 15 mEq 15 meq PO DAILY 01/26/21 01/26/21 History tablet,extended release(part/cryst) Allergies Allergy/AdvReac Type Severity Reaction Status Date / Time imipenem [IMIPENEM] Allergy Intermediate TURNED RED Verified 01/26/21 13:52 Review of Systems Review of Systems Narrative: all systems reviewed and negative except as otherwise documented in HPI Exam Vital Signs (past 8 hours): - 09/29/21 01:00 09/29/21 01:30 09/29/21 02:00 Temperature Pulse Rate 78 87 86 Respiratory Rate 18 19 23 Blood Pressure Pulse Oximetry 94 95 96 09/29/21 02:30 09/29/21 03:00 09/29/21 03:30 Temperature Pulse Rate 82 80 81 Respiratory Rate 23 21 20 Blood Pressure Pulse Oximetry 96 96 95 09/29/21 04:00 09/29/21 04:30 09/29/21 05:00 Temperature Pulse Rate 78 84 83 Respiratory Rate 21 16 20 Blood Pressure Pulse Oximetry 96 96 96 09/29/21 05:07 09/29/21 05:07 09/29/21 05:30 Temperature Pulse Rate 104 H 82 Respiratory Rate 20 22 Blood Pressure 136/74 Pulse Oximetry 97 96 09/29/21 06:00 09/29/21 06:30 09/29/21 07:00 Temperature Pulse Rate 81 83 86 Respiratory Rate 20 20 20 Blood Pressure Pulse Oximetry 96 96 94 09/29/21 07:30 09/29/21 07:45 Temperature 97.5 F L Pulse Rate 91 H Respiratory Rate 17 Blood Pressure 106/60 Pulse Oximetry 97 Oxygen Delivery Method Room Air Narrative Exam Narrative: hairless elder laying in bed trying to sleep Const General: in distress and frail appearing HENMT Head: atraumatic (cochlear implant on L parietal) Eyes Other: normal eyes with crusted lashes bilaterally Resp Other: moving air well clear to auscultation bilaterally Cardio Other: regular rate irregular rhythm GI Other: soft nontender normal bowel sounds Other: purewick in place Back/Spine/Pelvis Other: unstageable lumbar pressure ulcer approx 9x4cm with eschar Skin Other: scattered stasis dermatitis and flaking skin all over worst on shins bilaterally Extrem Other: moving all extremities good pedal pulses bilaterally Objective Labs Result Diagrams: 09/28/21 17:15 09/28/21 17:15 Labs: Laboratory Results - last 24 hr 09/28/21 09/28/21 09/28/21 17:15 17:15 17:15 WBC 10.5 RBC 3.46 L Hgb 13.7 Hct 39.9 MCV 115.2 H MCH 39.7 H MCHC 34.5 RDW 13.5 Plt Count 330 Neut % (Auto) 79.6 H Lymph % (Auto) 9.1 L [place] % (Auto) 7.2 Eos % (Auto) 2.9 Baso % (Auto) 1.2 Neut # (Auto) 8400 H Lymph # (Auto) 1000 L [place] # (Auto) 800 Eos # (Auto) 300 Baso # (Auto) 100 RBC Morphology See below Macrocytosis 2+ H PT 32.5 H INR 2.8 H APTT Sodium 142 Potassium 3.7 Chloride 105 Carbon Dioxide 30 BUN 39 H Creatinine 0.96 Estimated GFR 57 L BUN/Creatinine Ratio 40.6 H Glucose 121 H Lactate Calcium 8.6 Total Bilirubin 0.6 AST 34 ALT 19 Alkaline Phosphatase 146 H Total Protein 7.8 Albumin 3.8 Globulin 4.0 Albumin/Globulin Ratio 1.0 Procalcitonin 0.10 SARS-CoV-2 (PCR) 09/28/21 09/28/21 09/28/21 17:15 17:15 18:36 WBC RBC Hgb Hct MCV MCH MCHC RDW Plt Count Neut % (Auto) Lymph % (Auto) [place] % (Auto) Eos % (Auto) Baso % (Auto) Neut # (Auto) Lymph # (Auto) [place] # (Auto) Eos # (Auto) Baso # (Auto) RBC Morphology Macrocytosis PT INR APTT 47 H Sodium Potassium Chloride Carbon Dioxide BUN Creatinine Estimated GFR BUN/Creatinine Ratio Glucose Lactate 2.0 Calcium Total Bilirubin AST ALT Alkaline Phosphatase Total Protein Albumin Globulin Albumin/Globulin Ratio Procalcitonin SARS-CoV-2 (PCR) Negative Assessment & Plan Assessment & Plan narrative: #unstageable lumbar pressure ulcer surgery planning debridement appreciate input will hold warfarin for now until procedure pain control as needed wound care/ surgical consult #afib target INR 2-3, stable INR 2.8 home regimen is warfarin 2mg qd holding warfarin until surgery #HTN stable continue home meds #CKD3a GFR 57 on admit, ice water po got one bag IVF in ER trend and monitor #hearing impairment cochlear implant in place use assistive tech as feasible #dementia stable - mild? continue home memantine and donepezil dispo: concerning status does not seem she is able to care for herself at home. pending surgical debridement/PT/OT/dietary eval. may be suitable for SNF. Code: DNR MDM: John, son David [phone] diet: NPO/ice water covid: negative Time Spent With Patient Critical Care time: I spent a total of [] minutes of critical care time on this patient's care today; this time is exclusive of procedural time.
--- NOTE | 2021-09-29 08:41 | CM.DPNOTE ---
Addendum entered by RANDELL Arndt 09/29/21 16:12: According to Judi at [facility]; no admissions until, at the earliest, SundayOctober 04. Also no one to review updated clinical on this patient until that date Discussed this referral with Ninfa at [facility]. Patient requesting to get surgical I+D of sacral wound, does not want comfort/hospice care at this time. Will plan to review DC options w/patient over the next 24 hrs. JW Original Note: Emailed [facility] [place] referral per Eboni; to Judi. Ani Eisenberg CM Assist.
--- NOTE | 2021-09-29 09:05 | PT-IP ANOTE ---
Reviewed EMR and talked with nurse and stated that pt will be undergoing I&D for sacral wound and PT eval on hold. informed nurse that new eval order needed after surgery due to change in medical condition after surgery. Nurse agreed to d/c PT order at this time and new PT eval will be ordered after surgery.
--- NOTE | 2021-09-29 09:21 | OT.IPNOTE ---
Pt looking to have sx for I and D sacral wound today , therefore discharge OT eval orders at this time.
[2021-09-29] MEDS: FUROSEMIDE 20 MG TABLET 80 MG PO (10:19)
[2021-09-29] MEDS: MEMANTINE HCL 5 MG TABLET PO (10:20)
[2021-09-29] MEDS: POTASSIUM CHLORIDE 20 MEQ/15 ML UDC 15 MEQ PO (10:20)
[2021-09-29] MEDS: DOCUSATE 100 MG CAPSULE PO ×2 (10:21→20:42)
--- NOTE | 2021-09-29 10:40 | PC.NURSE ---
Addendum entered by Coty Meredith R.N. 09/29/21 15:36: 1500 Dr Wallis at bedside, pt opting for Surgical intervention of decub, will make pt NPO after midnight with sips and chips. Addendum entered by Coty Meredith R.N. 09/29/21 13:09: Pt refusing turning and repositioning, she cries out come on, it hurts too mcuh medicated with 5mg Oxy to help with pain, wound care nurse assisted with changing brief that was saturated. Pure wick connected to suction. Bed low and locked, pt resting with eyes closed, will continue to monitor. Addendum entered by Coty Meredith R.N. 09/29/21 10:53: 0745 Pt arrived via gurney to room, oriented to room and call light system, pt attached to monitoring equipment, Dr Wallis at bedside, new orders in computer, Dr Donohue at bedside consulting. Bed low and locked, call light within reach will continue to monitor. Addendum entered by Coty Meredith R.N. 09/29/21 10:51: per Dr Wallis wound is 9x4cm Original Note:
--- NOTE | 2021-09-29 10:48 | PC.RNWOUND ---
Per primary RN patient sleeping right now, exhausted, not a good time to turn patient, pictures of wound have been taken and uploaded to chart. Will check back later.
[2021-09-29] MEDS: ACETAMINOPHEN 325 MG TABLET PO (11:50)
--- NOTE | 2021-09-29 12:25 | PM.CN ---
History of Present Illness Consult details Date Patient Seen: 09/29/21 Time Patient Seen: 08:30 Chief complaint: BACK WOUND SENT BY WOUND DR Reason for consult: pressure ulcer on lower back Requesting provider: Lai Martinez Narrative: patient sent to ED with failure to thrive and back wound from chronic bed barreto and questionable ability to be cared for in current housing. Meds Home Medications and Allergies Home Medications Medication Instructions Recorded Confirmed Type lisinopril 5 mg tablet (Zestril) 5 mg PO QPM ##0 07/03/11 01/26/21 History omega 3-tdv-idv-fish oil 1,000 mg 1 cap PO DAILY ##0 03/03/12 01/26/21 History (120 mg-180 mg) capsule (Fish Oil) acetaminophen 325 mg tablet 325 mg PO Q4HP PRN pain ##0 01/15/17 01/26/21 History donepezil 5 mg tablet 5 mg PO DAILY ##0 01/15/17 01/26/21 History multivitamin (Multiple Vitamins 1 tab PO DAILY ##0 01/15/17 01/26/21 History tablet) memantine 5 mg tablet 5 mg PO QAM 01/22/19 01/26/21 History warfarin 2.5 mg tablet 2.5 mg PO SUMOTUWETHFR 01/22/19 01/26/21 History warfarin 2.5 mg tablet 5 mg PO QWEEK 01/22/19 01/26/21 History furosemide 20 mg tablet 80 mg PO DAILY #0 tabs 01/26/21 01/26/21 History potassium chloride 15 mEq 15 meq PO DAILY 01/26/21 01/26/21 History tablet,extended release(part/cryst) Allergies Allergy/AdvReac Type Severity Reaction Status Date / Time imipenem [IMIPENEM] Allergy Intermediate TURNED RED Verified 01/26/21 13:52 Review of Systems Review of Systems Narrative: very emotional. ROS: Yes unobtainable due to mental status Exam Vital Signs (past 8 hours): - 09/29/21 04:30 09/29/21 05:00 09/29/21 05:07 Temperature Pulse Rate 84 83 Respiratory Rate 16 20 Blood Pressure 136/74 Pulse Oximetry 96 96 Oxygen Flow Rate 09/29/21 05:07 09/29/21 05:30 09/29/21 06:00 Temperature Pulse Rate 104 H 82 81 Respiratory Rate 20 22 20 Blood Pressure Pulse Oximetry 97 96 96 Oxygen Flow Rate 09/29/21 06:30 09/29/21 07:00 09/29/21 07:30 Temperature Pulse Rate 83 86 91 H Respiratory Rate 20 20 17 Blood Pressure Pulse Oximetry 96 94 97 Oxygen Flow Rate 09/29/21 07:45 09/29/21 07:56 Temperature 97.5 F L 97.7 F Pulse Rate 93 H Respiratory Rate 18 Blood Pressure 106/60 107/55 L Pulse Oximetry 95 Oxygen Flow Rate 0 Oxygen Delivery Method Room Air Oxygen Flow Rate 0 Narrative Exam Narrative: fragile skin over majority of lower back and buttocks. Central eschar over spine. Objective Labs Result Diagrams: 09/28/21 17:15 09/28/21 17:15 Labs: Laboratory Results - last 24 hr 09/28/21 09/28/21 09/28/21 17:15 17:15 17:15 WBC 10.5 RBC 3.46 L Hgb 13.7 Hct 39.9 MCV 115.2 H MCH 39.7 H MCHC 34.5 RDW 13.5 Plt Count 330 Neut % (Auto) 79.6 H Lymph % (Auto) 9.1 L [place] % (Auto) 7.2 Eos % (Auto) 2.9 Baso % (Auto) 1.2 Neut # (Auto) 8400 H Lymph # (Auto) 1000 L [place] # (Auto) 800 Eos # (Auto) 300 Baso # (Auto) 100 RBC Morphology See below Macrocytosis 2+ H PT 32.5 H INR 2.8 H APTT Sodium 142 Potassium 3.7 Chloride 105 Carbon Dioxide 30 BUN 39 H Creatinine 0.96 Estimated GFR 57 L BUN/Creatinine Ratio 40.6 H Glucose 121 H Lactate Calcium 8.6 Total Bilirubin 0.6 AST 34 ALT 19 Alkaline Phosphatase 146 H Total Protein 7.8 Albumin 3.8 Globulin 4.0 Albumin/Globulin Ratio 1.0 Procalcitonin 0.10 SARS-CoV-2 (PCR) 09/28/21 09/28/21 09/28/21 17:15 17:15 18:36 WBC RBC Hgb Hct MCV MCH MCHC RDW Plt Count Neut % (Auto) Lymph % (Auto) [place] % (Auto) Eos % (Auto) Baso % (Auto) Neut # (Auto) Lymph # (Auto) [place] # (Auto) Eos # (Auto) Baso # (Auto) RBC Morphology Macrocytosis PT INR APTT 47 H Sodium Potassium Chloride Carbon Dioxide BUN Creatinine Estimated GFR BUN/Creatinine Ratio Glucose Lactate 2.0 Calcium Total Bilirubin AST ALT Alkaline Phosphatase Total Protein Albumin Globulin Albumin/Globulin Ratio Procalcitonin SARS-CoV-2 (PCR) Negative [facility] Medical History Abscess or cellulitis of back Atrophic vaginitis Bowel and bladder incontinence Cellulitis of buttock Chicken pox (~1940) Chronic anticoagulation Constipation Contact dermatitis Decubitus ulcer Degenerative joint disease (DJD) of lumbar spine History of urinary tract infection HTN (hypertension) Lower extremity weakness Measles Methicillin susceptible Staphylococcus aureus infection, unspecified site Mumps Osteoporosis Physical deconditioning Urinary tract infection Surgical History H/O gastric bypass History of hip replacement History of knee replacement Previous back surgery Family History Father Cancer Brother Cancer Gout Grandfather Cancer Social History marital status: household members: spouse and children occupational status: other Previous occupational history: retired Tobacco & Substance Use Smoking Status: Former smoker Tobacco: How many years used: 20 alcohol intake: never Diet and Exercise Type(s) of exercise: none Assessment & Plan Assessment & Plan narrative: Multiple medical and social issues. On coumadin with pressure ulcer on lower back in need of surgical debridement once INR is appropriate. Negative pressure dressing should be considered after debrided. Time Spent With Patient Time with patient: less than 30 minutes Critical Care time: I spent a total of [] minutes of critical care time on this patient's care today; this time is exclusive of procedural time.
--- NOTE | 2021-09-29 12:31 | DIET.CONS2 ---
Dietary Inpatient Consultation Note Admission Date: 09/28/2021 20:28 RD consulted to pt with unstagable pressure injury to sacrum after failing OP management c complications of both urine and stool incontinence and physical immobility. Pt [place] and fatigued this am. Sending ONS Jaziel bid and double protein portions to support nutrition status and wounds. Will f/u with interview to assess pts current PO intake. Diet: 09/29/21 Lunch General (Regular) Diet Diet Modifications: ONS jaziel bid, double protein portions Nutrition Percent Meal Consumed 100% 09/29/21 09:51 Electronically Signed by: Marina Patel 09/29/21 12:31 Clinical Dietitian [address] [address]
--- NOTE | 2021-09-29 13:02 | PC.RNWOUND ---
Patient resting in bed, turns to side with assist, expresses discomfort with turning. There is a wound to the sacrum which appears as an unstageable pressure injury. Unable to obtain measurements at this time due to patient discomfort but does appear to be about 9x4cm with unknown depth due to presence of slough and eschar covering wound depth (60% slough, 40% eschar). There is slight malodor noted and a large amount of serosanguineous drainage to attends, which are changed. Periwound skin is moist with redness, maceration, erosion of skin to sacrogluteal area. Purewick is being used to drain urine as patient is incontinent. Bilateral lower extremities with hemosiderin staining consistent with venous chronic venous insufficiency, skin is dry and flaky, fragile, tender to touch. Pillow is placed for patient to tilt to right side with 30 degree tilt, patient says it does help relieve discomfort, primary rn says she will apply heel protectors for protection.
[2021-09-29] MEDS: OXYCODONE IR 5 MG TABLET PO ×2 (13:04→22:59)
[2021-09-29] MEDS: lisinopriL 5 MG TABLET 10 MG PO (16:51)
[2021-09-29] MEDS: MORPHINE 2 MG/ML INJ IV (16:51)
[2021-09-29] MEDS: PHYTONADIONE (VIT K1) 5 MG TABLET PO (17:55)
[2021-09-29] MEDS: DONEPEZIL 5 MG TABLET 10 MG PO (20:42)
[2021-09-30] MEDS: OXYCODONE IR 5 MG TABLET PO ×3 (05:05→15:19)
[2021-09-30 05:22] LABS: Hematocrit 35.9 % (36-46); Hemoglobin 12.4 g/dL (12.0-16.0); INR 2.4 (0.9-1.3); Mean Corpuscular HGB Conc 34.5 % (30-36); Mean Corpuscular Hemoglobin 39.5 PG (26-34); Mean Corpuscular Volume 114.7 fL (80-100); Platelet Count 273 X10^3/uL (150-400); Prothrombin Time 27.3 SECONDS (10.1-12.7); Red Blood Cell Count 3.13 X10^6/uL (4.0-5.2); Red Cell Distribution Width 13.4 % (11.6-14.8); White Blood Cell Count 10.5 X10^3/uL (4.5-11.0)
[2021-09-30 05:29] LABS: Alanine Aminotransferase 14 IU/L (<35); Albumin 3.1 g/dL (3.5-5.0); Albumin Globulin Ratio 0.9 (1.0-2.8); Alkaline Phosphatase 116 U/L (38-126); Aspartate Aminotransferase 20 IU/L (14-36); BUN Creatinine Ratio 40.2 (6-22); Bilirubin Total 0.7 mg/dL (0.2-1.3); Blood Urea Nitrogen 33 mg/dL (7-17); Calcium 8.2 mg/dL (8.4-10.2); Carbon Dioxide 29 mmol/L (22-32); Chloride 101 mmol/L (98-107); Estimated Glomerular Filt Rate > 60 mL/min (>60); Globulin 3.4 g/dL (1.7-4.1); Glucose 128 mg/dL (80-110); HEMOLYSIS < 15 (0-50); Potassium 3.7 mmol/L (3.4-5.1); Sodium 137 mmol/L (137-145); Total Protein 6.5 g/dL (6.3-8.2)
--- NOTE | 2021-09-30 05:58 | PC.NURSE ---
Patient slept most of the shift. Sacral pain controlled well with Oxycodone. Serosanguinous drainage noted when turned. Clean dry pads replaced under patients bottom. Patient with mild confusion at times but reorients easily and has been calm and cooperative.
[2021-09-30 07:48] VITALS: PULSE 94; O2SAT 92
[2021-09-30 07:49] VITALS: BP 108/54; PULSE 91; O2SAT 92
[2021-09-30 07:57] VITALS: BP 108/54; PULSE 91; RESP 22; TEMP 36.4; O2SAT 91
[2021-09-30] MEDS: FUROSEMIDE 20 MG TABLET 80 MG PO (08:35)
[2021-09-30] MEDS: MEMANTINE HCL 5 MG TABLET PO (08:35)
[2021-09-30] MEDS: POTASSIUM CHLORIDE 20 MEQ/15 ML UDC 15 MEQ PO (08:36)
[2021-09-30] MEDS: DOCUSATE 100 MG CAPSULE PO (08:36)
--- NOTE | 2021-09-30 11:25 | DIET.CONS ---
Dietary Consultation Note Admission Date: 09/28/2021 20:28 Assessment: 86y F admitted after failing OP wound care for unstagable sacral ulcer to level of spine referred to nutrition for same. Awaiting POC surgery vs hospice. Provided nursing with high kcal, high pro, high nutrient supportive nutrition handout for pressure ulcers, d/c sheet for ONS with coupons, and kitchen alerted to ONS plan if pt assigned diet. Ht: 154.94 cm Wt: 70 kg BMI: 29.1 Last BM: () MNA: 10 Raphael Score: 12 Diet: 09/30/21 00:01 NPO Diet Diet Modifications: Safety Tray needed?: No NPO Type: NPO except for Ice Chips Nutrition Percent Meal Consumed 75% 09/29/21 18:00 Percent Meal Consumed 100% 09/29/21 09:51 Labs: RBC 3.13 X10^6/uL (4.0-5.2) L 09/30/21 04:50 Hgb 12.4 g/dL (12.0-16.0) 09/30/21 04:50 Hct 35.9 % (36-46) L 09/30/21 04:50 Creatinine 0.82 mg/dL (0.52-1.04) 09/30/21 04:50 Lactate 2.0 mmol/L (0.7-2.1) 09/28/21 17:15 Electronically Signed by: Marina Patel 09/30/21 11:25 Clinical Dietitian [address] [address]
--- NOTE | 2021-09-30 12:57 | P.CALLCOV_ITS ---
Call Coverage Note Note Date of Patient Contact: 09/30/21 Time of Patient Contact: 12:57 Narrative of Care Provided: Up date Discussion with patient and family with PCP and high school social studies tutor. No debridement of decubitus ulcer today given the low likelihood that the decubitus ulcer will ultimately heal as result of her immobility and incontinence. Will proceed with local wound care. Call with questions.
--- NOTE | 2021-09-30 14:45 | P.PN_ITS ---
Subjective Subjective Date Patient Seen: 09/30/21 Time Patient Seen: 11:50 Exam Vital Signs (past 8 hours): - 09/30/21 07:57 09/30/21 07:00 Temperature 97.5 F L Pulse Rate 91 H Respiratory Rate 22 Blood Pressure 108/54 L Pulse Oximetry 91 Oxygen Delivery Method Room Air Oxygen Flow Rate 0 Oxygen Delivery Method Room Air Oxygen Flow Rate 0 Narrative Exam Narrative: smiling laying on back holding hands with Const General: comfortable and frail appearing HENMT Head: atraumatic Ears: other (cochlear implant to L parietal seems functional) Resp Auscultation: clear to auscultation bilaterally Cardio Rate: regular rate GI Other: soft nontender nondistended normal bowel sounds Skin Other: unstageable sacral ulcer with macerated and erythematous surrouding skin Neuro General: patient alert, patient awake, moves all extremities and CN's II-XI intact bilaterally Extrem Other: scattered statis dermatitis mostly on calves Psych Other: tearful. tangential. disaffectation towards taking action or making decisions. Objective Labs Result Diagrams: 09/30/21 04:50 09/30/21 04:50 Labs: Laboratory Results - last 24 hr 09/30/21 09/30/21 09/30/21 04:50 04:50 04:50 WBC 10.5 RBC 3.13 L Hgb 12.4 Hct 35.9 L MCV 114.7 H MCH 39.5 H MCHC 34.5 RDW 13.4 Plt Count 273 PT 27.3 H D INR 2.4 H Sodium 137 Potassium 3.7 Chloride 101 Carbon Dioxide 29 BUN 33 H Creatinine 0.82 Estimated GFR > 60 BUN/Creatinine Ratio 40.2 H Glucose 128 H Calcium 8.2 L Total Bilirubin 0.7 AST 20 ALT 14 Alkaline Phosphatase 116 Total Protein 6.5 Albumin 3.1 L Globulin 3.4 Albumin/Globulin Ratio 0.9 L [facility] Medical History Abscess or cellulitis of back Atrophic vaginitis Bowel and bladder incontinence Cellulitis of buttock Chicken pox (~1940) Chronic anticoagulation Constipation Contact dermatitis Decubitus ulcer Degenerative joint disease (DJD) of lumbar spine History of urinary tract infection HTN (hypertension) Lower extremity weakness Measles Methicillin susceptible Staphylococcus aureus infection, unspecified site Mumps Osteoporosis Physical deconditioning Urinary tract infection Surgical History H/O gastric bypass History of hip replacement History of knee replacement Previous back surgery Family History Father Cancer Brother Cancer Gout Grandfather Cancer Social History marital status: household members: spouse and children occupational status: other Previous occupational history: retired Smoking Status: Former smoker Tobacco: How many years used: 20 alcohol intake: never Type(s) of exercise: none Assessment & Plan Assessment & Plan narrative: #unstageable lumbar pressure ulcer pain control as needed exploring d/c/ options wound care/surgical consult input appreciated #afib target INR 2-3, stable INR 2.8 on admission home regimen is warfarin 2mg qd resume warfarin #HTN stable continue home meds #CKD3a GFR 57 on admit, ice water po got one bag IVF in ER trend and monitor #hearing impairment cochlear implant in place use assistive tech as feasible #dementia stable - mild? continue home memantine and donepezil dispo: concerning status does not seem she is able to care for herself at home. pending surgical debridement/PT/OT/dietary eval. may be suitable for SNF. Code: DNR MDM: John, son David [phone] diet: NPO/ice water covid: negative Time Spent With Patient Critical Care time: I spent a total of [] minutes of critical care time on this patient's care today; this time is exclusive of procedural time.
--- NOTE | 2021-09-30 14:54 | CM.DPNOTE ---
Faxed referral to [facility] and rec. conf. Ani Eisenberg CM Assist.
--- NOTE | 2021-09-30 16:05 | PC.NURSE ---
Addendum entered by Coty Meredith R.N. 09/30/21 16:41: Report given to Ro at [facility], pt to leave via BLS at approx 1730 Original Note: Dayshift note: After a family Care Management meeting it was decided that pt would not be having surgery, instead she would go to SNF on comfort care. Sacral pain is controlled with 5mg Oxycodone, Serosaguinous drainage noted with turns, pt refuses turning most of the shift too painful even with medication, clean dry pads placed under pt. [place] catheter patent, with adequate urine output, clear yellow. Conway to remain in place when pt is taken to SNF to prevent further skin breakdown of the unstageable pressure ulcer. Bed low and locked, call light within reach, will continue to treat and monitor.
--- NOTE | 2021-09-30 16:31 | PM.DS.1 ---
History of Present Illness History of Present Illness Date Patient Seen: 09/30/21 Time Patient Seen: 09:00 Chief complaint: BACK WOUND SENT BY WOUND DR Narrative: CC: I want to be normal Dr. Donohue was able to evaluate the patient and we had conversation with long term care social worker Eboni regarding best options for proceeding. He does not foresee debridement as being a good option for promoting healing given Mrs. Livingston's immobility and incontinence. Eboni and I were able to have a full conference with & Mrs. Livingston and their son this afternoon to communicate our reservations to them and discuss their desired goals of care. It has been explained to Mrs. Livingston that debridement would require her to be rolled over on her back and she was clear that she did not want that. Dr. Bustillos's outpatient wound care efforts are not equal to this task, certainly not as long as she remains with pressure on that area. We discussed the option of moving to a comfort care perspective and possibly pursuing home hospice referral which would enable her to go home. She lives with her who is himself quite frail. They have been together 71 years and have a very dependent relationship on each other. Son and were in agreement that pursuing surgical debridement would likely not be comfortable for her. I am indebted to Eboni for arranging this meeting and proceeding with gathering options for discharge. Discharge Providers Provider Date of admission: 09/28/21 20:28 Discharge Date: 09/30/21 Primary care physician: Gabby Saavedra MD Consults: 09/28/21 17:25 [place] [facility] [place] [facility] [employer] Stat Comment: 09/29/21 08:29 Consult to Occupational Therapy Evaluate & Treat Comment: Physician Instructions: Evaluate and treat Consult to Physical Therapy Evaluate & Treat Comment: Physician Instructions: Evaluate and Treat 09/29/21 08:30 Consult to Dietitian, Adult Routine Comment: Reason For Exam: frail elder suspect malnutrition Consult to Wound Care Routine Comment: Consulting Provider: [facility] 09/29/21 08:33 Consult to Inpatient Wound Care Nurse Routine Comment: Reason for consultation: decub ulcer Has provider been notified: Yes 09/29/21 09:24 Consult to Dietitian, Adult Routine Comment: Reason For Exam: decub ulcer 09/29/21 12:33 Consult to General Surgery Routine Comment: Consulting Provider: Lance Mcmahon Reason for consultation: pressure ulcer Has provider been notified: Yes Discharge provider: Jamla Wallis MD Summary Hospital Course Discharge Diagnosis: #unstageable lumbar pressure ulcer #afib #HTN #CKD3a #hearing impairment #dementia Hospital Course: Mrs. Livingston was admitted and her lumbar wound was evaluated and not found to be a good surgical candidate for debridement. Goals of care conversation conducted as above decision was made to go to SNF for now. Can reevaluate her goals later but if she is not able to work with rehab and demonstrate capability to unload lumbar wound her chances of healing even with debridement are dismal. 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 tangential.? disaffectation towards taking action or making decisions. Objective Labs Result Diagrams: 09/30/21 04:50 09/30/21 04:50 Labs: Laboratory Results - last 24 hr 09/30/21 09/30/21 09/30/21 04:50 04:50 04:50 WBC 10.5 RBC 3.13 L Hgb 12.4 Hct 35.9 L MCV 114.7 H MCH 39.5 H MCHC 34.5 RDW 13.4 Plt Count 273 PT 27.3 H D INR 2.4 H Sodium 137 Potassium 3.7 Chloride 101 Carbon Dioxide 29 BUN 33 H Creatinine 0.82 Estimated GFR > 60 BUN/Creatinine Ratio 40.2 H Glucose 128 H Calcium 8.2 L Total Bilirubin 0.7 AST 20 ALT 14 Alkaline Phosphatase 116 Total Protein 6.5 Albumin 3.1 L Globulin 3.4 Albumin/Globulin Ratio 0.9 L [facility] Medical History Abscess or cellulitis of back Atrophic vaginitis Bowel and bladder incontinence Cellulitis of buttock Chicken pox (~1940) Chronic anticoagulation Constipation Contact dermatitis Decubitus ulcer Degenerative joint disease (DJD) of lumbar spine History of urinary tract infection HTN (hypertension) Lower extremity weakness Measles Methicillin susceptible Staphylococcus aureus infection, unspecified site Mumps Osteoporosis Physical deconditioning Urinary tract infection Surgical History H/O gastric bypass History of hip replacement History of knee replacement Previous back surgery Family History Father Cancer Brother Cancer Gout Grandfather Cancer Social History marital status: household members: spouse and children occupational status: other Previous occupational history: retired Smoking Status: Former smoker Tobacco: How many years used: 20 alcohol intake: never Type(s) of exercise: none Discharge Assessment & Plan Assessment and Plan Assessment: #unstageable lumbar pressure ulcer pain control as needed d/c to [facility] today encourage unloading and mobilization wound care/surgical consult input appreciated #afib target INR 2-3, stable INR 2.8 on admission home regimen is warfarin 2mg qd resume warfarin #HTN stable continue home meds #CKD3a GFR 57 on admit, ice water po got one bag IVF in ER trend and monitor #hearing impairment cochlear implant in place use assistive tech as feasible #dementia stable - mild? continue home memantine and donepezil dispo: [facility] Code: DNR MDM: John, son David [phone] diet: NPO/ice water covid: negative 75 minutes spent on this discharge today Discharge Plan Discharge Plan Patient Disposition: SNF Transfer to: [facility] Discharge orders & Medications Prescriptions: Continued lisinopril [Zestril] 5 MG tablet 5 mg PO QPM Qty: 0 omega 2-vyd-caf-fish oil [Fish Oil] 1,000 mg (120 mg-180 mg) Capsule 1 cap PO DAILY Qty: 0 donepezil 5 MG tablet 5 mg PO DAILY Qty: 0 multivitamin [Multiple Vitamins] 1 EACH tablet 1 tab PO DAILY Qty: 0 acetaminophen 325 MG tablet 325 mg PO Q4HP PRN (Reason: pain) Qty: 0 furosemide 20 mg tablet 80 mg PO DAILY Qty: 0 memantine 5 mg Tablet 5 mg PO QAM potassium chloride 15 mEq tablet,ER particles/crystals 15 meq PO DAILY Changed warfarin 2.5 mg Tablet 2.5 mg PO 1XD Qty: 30 0RF Discontinued warfarin 2.5 mg Tablet 5 mg PO QWEEK Label Comments: saturdays Follow up/Referrals: Gabby Saavedra MD [Primary Care Provider] - Diet/Activity/Treatments Diet: Diet as Tolerated Food texture: Regular Activity: PT/OT, offload sacrum Skin/Wound/Dressing Care Skin care: wound care sacral decub [facility] Reason for rehabilitation: Recovery r/t decondition Rehab type: Physical therapy and Occupational therapy Discharge Data Primary Care Provider: Gabby Saavedra
[2021-09-30] MEDS: MORPHINE 2 MG/ML INJ IV (16:56)
[2021-09-30] MEDS: lisinopriL 5 MG TABLET 10 MG PO (16:56)
--- NOTE | 2021-09-30 17:14 | CM.DPNOTE ---
DC Note Coordinated throughout the day with patient/spouse and son David, Dr [place], Dr Wallis,RN [facility] and then with [facility] plan of care/goals of care and DCP- No surgery scheduled Inevitably, patient/family agreeable to patient discharging to [facility] SNF under comfort management with coverage under [facility] benefit for approx 7 days then will plan to take patient home w/hospice Referral to [facility] made today. Spouse and son agreeable. Plan: DC to [facility] for comfort management while hospice arranged at home this week vs private payment at [facility] for comfort management after one week of MCR coverage (family aware), via BLS JW
== END 2021-09-30 18:22 | DRG 594 ==
LOC: ED 20:27 → AC 20:29 → ICU 09-29 05:47
PROVIDERS: Admitting Provider Family Medicine; Emergency Provider Emergency Medicine; Family Provider Student in an Organized Health Care Education/Training Program; PCP Student in an Organized Health Care Education/Training Program; Referring Provider Emergency Medicine; Visit Provider Family Medicine
DX: L89.150 Pressure ulcer of sacral region, unstageable (principal); I48.91 Unspecified atrial fibrillation; F03.90 Unspecified dementia, unspecified severity, without behavioral disturbance, psychotic disturbance, mood disturbance, and anxiety; I12.9 Hypertensive chronic kidney disease with stage 1 through stage 4 chronic kidney disease, or unspecified chronic kidney disease; N18.31 Chronic kidney disease, stage 3a; Z87.891 Personal history of nicotine dependence; Z66 Do not resuscitate; Z20.822 Contact with and (suspected) exposure to COVID-19; Z79.01 Long term (current) use of anticoagulants
CPT/HCPCS: 36415; 71260; 74177; 80053; 83605; 84145; 85025; 85027; 85610; 85730; 87635; 93005; 93010; 99213; 99284; C9803; J2270; Q9967

== ENCOUNTER → 2021-09-28 15:24 | Outpatient (CLI) | payer MEDICARE, OTHER, SELFPAY | PROVIDERS: Family Provider Student in an Organized Health Care Education/Training Program; PCP Student in an Organized Health Care Education/Training Program; Referring Provider Family Medicine; Visit Provider Family Medicine | DX: L89.150 Pressure ulcer of sacral region, unstageable (principal); R23.4 Changes in skin texture; R32 Unspecified urinary incontinence; R15.9 Full incontinence of feces; K62.89 Other specified diseases of anus and rectum; L30.8 Other specified dermatitis; Z79.01 Long term (current) use of anticoagulants; Z74.09 Other reduced mobility; Z60.8 Other problems related to social environment | CPT/HCPCS: 99213; 99214 ==